=== PATIENT | female | born 1945 | race Caucasian/White ===

== ENCOUNTER 2017-10-30 23:33 | Emergency (ER) | payer OTHER ==
[~2017-10-30] VITALS: Ht 152.4 cm; Wt 71.0 kg
[~2017-10-30 23:33] MED LIST: EYED
[2017-10-30 23:39] VITALS: TEMP 36.8; Ht 152.4 cm; Wt 71.0 kg
[2017-10-31] MEDS ORDERED: OXYCODONE HCL IR 5 MG TAB (IMMEDIATE RELEASE) PO STA (00:06)
--- NOTE | 2017-10-31 00:12 | EMERGENCY ROOM VISIT NOTE ---
History Report prepared by Kamilla: Juwan Narayanan Under the Supervision of: Dr. Arielle Lancaster D.O. First contact with patient: 23:51 Chief Complaint: BITE Stated Complaint: BITE History of Present Illness The patient is a 72 year old female who presents to the Emergency Room with complaints of lower back pain that began 2 weeks ago. She has a past medical history of kidney disease, fatty liver, and borderline diabetes. 2 weeks ago, the patient started to have pain to her right lower back but was not having any urinary symptoms so she did not think that she needed to go to the ER. A couple of days ago, her pain worsened significantly especially when she sits down, so her inspected the area. He noticed an area to her right lower back that he believed to be a bite of some sort. The patient took a bath and put some ointment on the area before she went to bed. The next morning a significant amount of puss was expressed so she took a bath and placed ointment on it again. However, it stopped draining and seemed to be worsening. She denies any fevers, abdominal pain, trouble with her bowels, or abnormal urinary symptoms. She notes that she has been keeping track of her sugars which have been normal. Source of History: patient Onset: 2 weeks ago Position: back (lower right) Symptom Intensity: moderate Quality: sharp Timing: constant Modifying Factors (Worsening): rest (Sitting) Associated Symptoms: No fevers, No abdominal pain, No melena, No hematochezia, No diarrhea, No urinary symptoms Review of Systems See HPI for pertinent positives & negatives. A total of 10 systems reviewed and were otherwise negative. Past Medical & Surgical Medical Problems: (1) Cataract (2) GLAUCOMA NOS (3) Rosacea Family History Omitted secondary to the patient's age. Social History Smoking Status: Never Smoker Smokeless Tobacco Use: No Drug Use: none Marital Status: Housing Status: lives with family Occupation Status: retired Current/Historical Medications Scheduled Aspirin (Aspirin Ec), 81 MG PO DAILY Bimatoprost (Lumigan), 1 DROP OPB HS Cephalexin (Keflex), 1 CAP PO TID Cholecalciferol (Vitamin D3), 1,000 INTER.UNIT PO DAILY Losartan Potassium (Cozaar), 100 MG PO DAILY Metformin Hcl (Glucophage), 1 TAB PO BIDM Sulfamethoxazole-Trimethoprim (Bactrim Ds 800MG/160MG), 1 TAB PO BID Allergies Coded Allergies: Quinolones (Verified Allergy, 12/06/12) Sulfa Drugs (Verified Allergy, 12/06/12) Tetracycline (Verified Allergy, 12/06/12) Tetracyclines (Verified Allergy, 12/06/12) Uncoded Allergies: IVP DYE (Allergy, Unknown, 12/19/02) N (Allergy, Unknown, 12/19/02) NKA (Allergy, Unknown, 12/19/02) TETRACYCLINE/SULFA/EES/QUININES/ADHESIVE TAPE/FLOXIN (Allergy, Unknown, 16/01) SULFAMETHOXAZOLE (Generic Allergy) (Allergy, Y, 12/19/02) Physical Exam Vital Signs Date Time Temp Pulse Resp B/P (MAP) Pulse Ox O2 Delivery O2 Flow Rate FiO2 10/31/17 01:45 76 18 134/82 98 10/30/17 23:39 36.8 87 18 155/81 98 Room Air Physical Exam Heart: Regular rate and rhythm. There is a normal S1 and S2 with no murmurs, clicks, or gallops appreciated. Lungs: Clear to auscultation bilaterally with no wheezes, rales, or rhonchi. Abdomen: Soft, completely nontender, nondistended, with good bowel sounds. There are no palpable pulsatile masses or hepatosplenomegaly. There is no guarding, rigidity, or rebound noted. Extremities: No evidence of cyanosis, clubbing, or edema. There are easily palpable peripheral pulses. Skin: warm and dry with good turgor and no rashes. There is a blanchable skin abscess to the right lower back. There is only minimal fluctuance. The area is indurated without any evidence for cellulitis. Medical Decision & Procedures Medications Administered Medications (Trade) Dose Ordered Sig/Brianne Route Start Time Stop Time Status Last Admin Dose Admin Oxycodone HCl (Roxicodone Immediate Rel Tab) 5 mg NOW STAT PO 10/31/17 00:06 10/31/17 00:08 DC 10/31/17 00:15 5 MG Trimethoprim/ Sulfamethoxazole (Septra Ds 800/ 160MG Tab) 1 tab NOW STAT PO 10/31/17 00:46 10/31/17 00:47 DC 10/31/17 00:55 1 TAB Cephalexin Monohydrate (Keflex Cap) 500 mg NOW ONCE PO 10/31/17 01:00 10/31/17 01:01 DC 10/31/17 00:55 500 MG Oxycodone HCl (Roxicodone Immediate Rel 5MG Home Pack) 1 homepack UD ONCE PO 10/31/17 01:00 10/31/17 01:01 DC 10/31/17 00:56 1 HOMEPACK Procedure Oxycodone 5 mg PO Lidocaine HCl 20 ml INFIL Trimethoprim/Sulfamethoxazole 1 tab PO Oxycodone HCl 1 homepack PO Keflex Cap 500 mg PO Incision & Drainage Indication: Abscess. Location: Right lower back Verbal consent was obtained after the risks and benefits were explained, including but not limited to bleeding, scarring, infection, pain, and bone/joint /nerve damage. At this time, the risks of the procedure are less than the risks of NOT performing the procedure. A time out was taken and the correct patient and site identified. The skin was prepped with betadine and a sterile field set. The wound was anesthetized with 4 ml of 1% lidocaine without epinephrine. The abscess cavity was entered with a number 11 blade and small amount of purulent drainage but mostly solid pus expressed. Foul odor. Debridement was not performed. Packing was placed and a sterile dressing applied. Detailed wound care instructions and signs and symptoms of worsening infection reviewed with the patient. No complications and the patient tolerated the procedure well. ED Course 2351: Past medical records reviewed. The patient was evaluated in room B10. A complete history and physical exam was performed. 0006: Ordered Oxycodone 5 mg PO 0015: Ordered Lidocaine HCl 20 ml INFIL 0022: I performed an I&D procedure at this time. Please see the procedure note for more information. 0040: The patient describes multiple side effects from antibiotics, but no true allergy. 0046: Ordered Trimethoprim/Sulfamethoxazole 1 tab PO 0100: Ordered Oxycodone HCl 1 homepack PO, Keflex Cap 500 mg PO 0126: The patient received her antibiotics without any reaction. 0143: Upon reevaluation, the patient was resting. I discussed findings and results with her. She verbalized agreement of the treatment plan. She was discharged home. Medical Decision The patient is a 72 year old female who presents to the ED with right lower back pain. Differential diagnosis includes insect bite, cellulitis, and skin abscess. The patient had an obvious area of fluctuance and skin abscess in the right lower back. This area was anesthetized and incised and drained. Packing was placed. The was instructed to remove the packing in 24+ hours. Patient then can keep the wound clean with soap and water and apply antibiotic ointment. The patient was also started on antibiotics. I was unable to obtain a wound culture has the wound initially produced some liquid but then seemed to only produce solids. I explained to the patient that she may require surgical evaluation of this abscess if it does not clear after the I&D and antibiotics. Medication Reconcilliation Current Medication List: was personally reviewed by me Blood Pressure Screening Patient's blood pressure: Elevated blood pressure Blood pressure disposition: Elevated BP felt to be situational Impression Primary Impression: Skin abscess Scribe Attestation The scribe's documentation has been prepared under my direction and personally reviewed by me in its entirety. I confirm that the note above accurately reflects all work, treatment, procedures, and medical decision making performed by me. Departure Information Dispostion Home / Self-Care Prescriptions Cephalexin (KEFLEX) 500 Mg Cap 1 CAP PO TID for 10 Days, #30 CAP Prov: Arielle Lancaster D.OAnna 10/31/17 Sulfamethoxazole-Trimethoprim (Bactrim Ds 800MG/160MG) 1 Tab Tab 1 TAB PO BID, #20 TAB Prov: Arielle Lancaster D.O. 10/31/17 Referrals Van Resendez M.D. (PCP) Forms HOME CARE DOCUMENTATION FORM, IMPORTANT VISIT INFORMATION Patient Instructions ED Abscess Padmaja, My [facility] Additional Instructions Rest. Take bactrim - every 12 hours Take keflex every 6 hours Remove the packing on Monday morning Follow up with PCP if no improvement by Oxy IR - 1 tab. every 6 hours as needed for pain. Return to the ER if you develop a fever, high sugars, or vomiting Problem Qualifiers Primary Impression: Skin abscess Site of cutaneous abscess: trunk Site of cutaneous abscess of trunk: back Qualified Codes: L02.212 - Cutaneous abscess of back [any part, except buttock]
[2017-10-31] MEDS ORDERED: XYLOCAINE 1%/SOD BICARB 20 ML VIAL INFIL ONE (00:15)
[2017-10-31] MEDS ORDERED: BIMA0.01 OPB (00:28)
[2017-10-31] MEDS ORDERED: CHOL1000 PO (00:28)
[2017-10-31] MEDS ORDERED: GLC/500 PO (00:28)
[2017-10-31] MEDS ORDERED: LOSA100T65 PO (00:28)
[2017-10-31] MEDS ORDERED: ASPI81TA28 PO (00:28)
[2017-10-31] MEDS ORDERED: SULFAMETHOXAZOLE/TRIMETHOPRIM DS 800/160MG TAB PO STA (00:46)
[2017-10-31] MEDS ORDERED: OXYCODONE IR HOME PACK PO ONE (01:00)
[2017-10-31] MEDS ORDERED: CEPHALEXIN MONOHYDRATE 250 MG CAP PO ONE (01:00)
[2017-10-31] MEDS ORDERED: SULF800T23 PO (01:36)
[2017-10-31] MEDS ORDERED: CEPH-571 PO (01:36)
[2017-10-31 01:45] VITALS: BP 134/82; PULSE 76; O2SAT 98
== END 2017-10-31 01:45 | disposition home or self-care (01) ==
LOC: C.EDB 23:34
DX: L02.212 Cutaneous abscess of back [any part, except buttock and flank] (principal); Z79.82 Long term (current) use of aspirin; Z79.84 Long term (current) use of oral hypoglycemic drugs; Z79.899 Other long term (current) drug therapy; Z88.2 Allergy status to sulfonamides; Z88.8 Allergy status to other drugs, medicaments and biological substances

== ENCOUNTER 2017-11-06 11:41 | Emergency (ER) | payer OTHER ==
[~2017-11-06] VITALS: Ht 160 cm; Wt 70.2 kg
[~2017-11-06 11:41] MED LIST changes: +ASPI81TA28 PO; +BIMA0.01 OPB; +CEPH-571 PO; +CHOL1000 PO; -EYED; +GLC/500 PO; +LOSA100T65 PO; +SULF800T23 PO
[2017-11-06 11:48] VITALS: TEMP 36.7; Ht 160 cm; Wt 70.2 kg
--- NOTE | 2017-11-06 12:25 | EMERGENCY ROOM VISIT NOTE ---
ED Visit Note First contact with patient: 11:55 Patient was seen by our PA/[employer]OR. I was involved in the patient's care and did evaluate the patient myself. I was involved in the care throughout the ER stay. The patient appears to be having an allergic reaction, likely from the Bactrim. There is no airway compromise. She clearly has hives. The patient will stop her current antibiotics and will be switched to something completely different, likely clindamycin. Antihistamines for the hive reaction. If worsening, she can return.
[2017-11-06] MEDS ORDERED: CLIN300C2 PO ×2 (12:43→13:20)
--- NOTE | 2017-11-06 12:46 | EMERGENCY ROOM VISIT NOTE ---
History First contact with patient: 11:55 Chief Complaint: ALLERGIC REACTION Stated Complaint: HIVES Nursing Triage Summary: pt reports being tx for an abcess 10/27 on buttocks pt treated with abx over melita with keflex pt started to get red hives on body 2 days ago last took keflex at 0230 1 day ago today took allergy pill and has welts on back with itchiness History of Present Illness The patient is a 72 year old female who presents to the Emergency Room with complaints of an allergic reaction. The patient reports that she has had a pain in her right lower back for the past 2-3 weeks. She states that she had progressively worsening pain and was eventually seen here one week ago. She was told she had an abscess, and was put on Bactrim and Keflex. She states that she has had an itchy rash all over her body for the past few days. She believes this is due to the sulfa antibiotic, as she did believe that she had an allergy to this. He denies any fevers. She took one of her 's allergy medications which helped slightly. She rates her overall discomfort a 9 /10. Review of Systems A complete 10 point review of systems was reviewed with the patient with pertinent positives and negatives as per history of present illness. All else were negative. Past Medical/Surgical History Medical Problems: (1) Cataract (2) GLAUCOMA NOS (3) Rosacea Social History Smoking Status: Never Smoker Drug Use: none Marital Status: Housing Status: lives with family Occupation Status: retired Current/Historical Medications Scheduled Aspirin (Aspirin Ec), 81 MG PO DAILY Bimatoprost (Lumigan), 1 DROP OPB HS Cephalexin (Keflex), 1 CAP PO TID Cholecalciferol (Vitamin D3), 1,000 INTER.UNIT PO DAILY Clindamycin Hcl (Cleocin), 300 MG PO QID Clindamycin Hcl (Cleocin), 300 MG PO QID Losartan Potassium (Cozaar), 100 MG PO DAILY Metformin Hcl (Glucophage), 1 TAB PO BIDM Sulfamethoxazole-Trimethoprim (Bactrim Ds 800MG/160MG), 1 TAB PO BID Physical Exam Vital Signs Date Time Temp Pulse Resp B/P (MAP) Pulse Ox O2 Delivery O2 Flow Rate FiO2 11/06/17 13:00 71 17 133/74 98 11/06/17 11:48 36.7 92 18 131/71 98 Room Air Physical Exam VITALS: Vitals are noted on the nurse's note and reviewed by myself. Vital signs stable. GENERAL: This is a 72-year-old female, in no acute distress, nondiaphoretic, well-developed well-nourished. SKIN: There is an area of induration with a small central area of pus to the right lower back. There is no fluctuance. There is a large surrounding area of erythema with satellite lesions. There are multiple erythematous raised urticarial lesions to bilateral legs, arms and trunk. HEART: Regular rate and rhythm without murmurs gallops or rubs. LUNGS: Clear to auscultation bilaterally without wheezes, rales or rhonchi. NEURO: Patient was alert and oriented to person place and time. Medical Decision & Procedures Medical Decision Differential diagnosis includes allergic reaction, Carias-Mehdi syndrome, cellulitis, among others. The patient was evaluated as above. Previous records were reviewed. The patient was seen here about one week ago and placed on Bactrim and Keflex for an abscess which had been incised and drained. There is no significant pus expressed for a culture. The patient does appear to be having an allergic reaction, likely to the Bactrim. She will be placed on clindamycin and will stop the other 2 antibiotics. She has a follow-up appointment with her primary care provider this week and was encouraged to keep this appointment. She was instructed to take Benadryl and other [id number] antihistamines for symptomatic relief. She verbalized understanding of my assessment and treatment plan and was discharged home in good condition. The patient was independently evaluated by Dr. Conway, ED attending physician, who agreed with my assessment and treatment plan. Medication Reconcilliation Current Medication List: was personally reviewed by me Blood Pressure Screening Patient's blood pressure: Normal blood pressure Impression Primary Impression: Allergic reaction Departure Information Dispostion Home / Self-Care Condition GOOD Prescriptions Clindamycin Hcl (CLEOCIN) 300 Mg Cap 300 MG PO QID for 7 Days, #28 CAP Prov: Yajaira Fraser PA-C 11/06/17 Clindamycin Hcl (CLEOCIN) 300 Mg Cap 300 MG PO QID for 7 Days, #28 CAP Prov: Yajaira Fraser PA-C 11/06/17 Referrals Van Resendez M.D. (PCP) Patient Instructions My [facility] Additional Instructions You were prescribed Clindamycin to be taken four times daily as prescribed. This is an antibiotic. All antibiotics have the potential to cause diarrhea. Stop this medication and contact a medical provider if you were to develop any significant adverse side effects including: wheezing, shortness of breath, passing out, vomiting, or a diffuse rash. Always take antibiotics as directed and COMPLETE the ENTIRE course regardless of the improvement of your symptoms. You should take Benadryl (diphenhydramine) 25-50 mg orally every 4-6 hours as needed for itching. This medication is [id number] and you will NOT need a prescription to purchase this at your local pharmacy. As with every Emergency Department visit, you should follow-up with your primary care provider in 2-3 days for reevaluation. Return to the Emergency Department if your current symptoms worsen despite treatment course outlined above, or if you develop any of the following symptoms : wheezing, tongue or face swelling, tightness in your throat, shortness of breath, or fainting. Problem Qualifiers Primary Impression: Allergic reaction Encounter type: initial encounter Qualified Codes: T78.40XA - Allergy, unspecified, initial encounter
[2017-11-06 13:00] VITALS: BP 133/74; PULSE 71; O2SAT 98
== END 2017-11-06 13:07 | disposition home or self-care (01) ==
LOC: C.EDB 11:42 → C.EDD 13:07
DX: T78.40XA Allergy, unspecified, initial encounter (principal); X58.XXXA Exposure to other specified factors, initial encounter; H26.9 Unspecified cataract; H40.9 Unspecified glaucoma; Z79.82 Long term (current) use of aspirin

== ENCOUNTER 2024-12-09 23:08 | Observation (INO) ==
[2024-12-09] MEDS: MoRPHine SULFATE 4 MG/ML 1 ML CARP\\VIAL IV STA (23:32)
[2024-12-09] MEDS: FAMOTIDINE 20MG IV PUSH 20 MG/5 ML SYR IV STA (23:32)
[2024-12-09] MEDS: ONDANSETRON INJ 2 MG/ML 2 ML VIAL IV STA (23:32)
[2024-12-09 23:34] LABS: Basophils % (auto) 0.7 %; Eosinophils % (auto) 2.1 %; Hematocrit (blood only) 28.5 % (37.0-47.0); Hemoglobin 9.7 g/dl (12.0-16.0); Immature Granulocytes # (auto) 0.09 K/uL (0.01-0.20); Immature Granulocytes % (auto) 0.6 %; Lymphocytes # (auto) 3.51 K/uL (1.20-3.40); Lymphocytes % (auto) 24.2 %; Mean Corpuscular Volume 82.4 fL (80.0-100.0); Mean Platelet Volume 9.8 fL (9.4-12.4); Monocytes # (auto) 1.18 K/uL (0.11-0.59); Monocytes % (auto) 8.1 %; Neutrophils # (auto) 9.31 K/uL (1.40-6.50); Neutrophils % (auto) 64.3 %; Platelet Count 351 K/uL (130-400); RDW Coefficient of Variation 12.3 % (11.5-14.5); Red Blood Count 3.46 M/uL (4.20-5.40); White Blood Count 14.49 K/ul (4.8-10.8)
--- NOTE | 2024-12-09 23:34 | Emergency Department Note ---
History of Present Illness General Chief complaint: Cardiac Assessment Stated complaint: SOB, CHEST PAIN, VOMITING Time Seen by Provider: 12/09/24 23:12 History of Present Illness Maximum Pain Intensity: 10 This 79-year-old female with a past medical history of hypertension, diabetes who was just treated for diverticulitis at [place] presents ER complaining of epigastric right upper quadrant chest pain tonight after eating [place]. She still has her gallbladder. She has had a hysterectomy. No other abdominal surgeries. Patient also complains of facial tingling. patient denies fever, chills, diarrhea. She does feel quite nauseous. Home Medications Medication Instructions Recorded Confirmed Type ASPIRIN (ASPIRIN EC) 81 mg PO DAILY ##0 10/31/17 12/10/24 History BIMATOPROST (LUMIGAN) 1 drp OPB HS #0 mL 10/31/17 12/10/24 History CHOLECALCIFEROL (VITAMIN D3) 1,000 inter.unit PO DAILY #0 tabs 10/31/17 12/10/24 History LOSARTAN POTASSIUM (COZAAR) 100 mg PO DAILY #0 tabs 10/31/17 12/10/24 History METFORMIN HCL (GLUCOPHAGE) 1 tab PO BIDM #0 tabs 10/31/17 12/10/24 History Allergies Allergy/AdvReac Type Severity Reaction Status Date / Time Quinolones Allergy Unknown Verified 11/06/17 12:03 Sulfa (Sulfonamide Allergy Unknown Verified 11/06/17 12:03 Antibiotics) tetracycline Allergy Unknown Verified 11/06/17 12:03 Tetracyclines Allergy Unknown Verified 11/06/17 12:03 IVP DYE Allergy Unknown Uncoded 12/19/02 11:12 SULFAMETHOXAZOLE (Generic Allergy Unknown Y Uncoded 11/06/17 12:03 Allergy) TETRACYCLINE/SULFA/EES/QUININES/ADHESIVE Allergy Unknown Uncoded 12/19/02 11:12 TAPE/FLOXIN Past Med/Surg History Problem List (Updated 12/10/24 @ 01:48 by Rosa Maria Harding PA-C) Hypomagnesemia (Acute) Hypokalemia (Acute) Chest pain (Acute) Biliary colic (Acute) Allergic reaction (Acute) Social History Smoking Status: Never smoker Preferred Language: Khmer Feels Safe at Home: Yes Review of Systems A total of 10 systems reviewed and were otherwise negative Physical Exam Vital Signs Vital Signs - 24 hr 12/09/24 23:09 12/09/24 23:20 12/09/24 23:23 Temperature 36.6 C Temperature Source Oral Pulse Rate 108 H 72 Pulse Rate [Left Finger] Pulse Rhythm [Left Finger] Pulse Strength [Left Finger] Respiratory Rate 24 Respiratory Effort / Characteristics Respiratory Depth Respiratory Pattern Blood Pressure 131/68 Blood Pressure [Right Arm] Blood Pressure Mean 89 Blood Pressure Mean [Right Arm] Blood Pressure Position [Right Arm] Pulse Oximetry 97 98 Oxygen Delivery Method Room Air Room Air Oxygen Flow Rate Sepsis Recent Fever Within 48 Hours No Sepsis New/Unexplained Change in Mental Status No Sepsis Action Taken by Nursing No Action Required Oxygen Flow Rate - Titration Pulse Oximetry Post Tiitration 12/10/24 00:50 12/10/24 01:51 12/10/24 02:00 Temperature Temperature Source Pulse Rate Pulse Rate [Left Finger] 66 68 Pulse Rhythm [Left Finger] Regular Pulse Strength [Left Finger] Normal Respiratory Rate 21 16 Respiratory Effort / Characteristics Non-Labored Spontaneous Non-Labored Spontaneous Respiratory Depth Normal Normal Respiratory Pattern Regular Regular Blood Pressure Blood Pressure [Right Arm] 151/73 H 162/76 H Blood Pressure Mean Blood Pressure Mean [Right Arm] 99 104 Blood Pressure Position [Right Arm] Lying Pulse Oximetry 97 86 L 100 Oxygen Delivery Method Room Air Nasal Cannula Nasal Cannula Oxygen Flow Rate 0 2 Sepsis Recent Fever Within 48 Hours Sepsis New/Unexplained Change in Mental Status Sepsis Action Taken by Nursing Oxygen Flow Rate - Titration 2 Pulse Oximetry Post Tiitration 100 VITALS: Vitals are noted on the nurse's note and reviewed by myself. Vital signs stable. GENERAL: White female crying in pain, in no acute distress, nondiaphoretic, well-developed well-nourished. SKIN: The skin was without rashes, erythema, edema, or bruising. There is no tenting of the skin. Capillary reflex less than 2 seconds. HEAD: Normocephalic atraumatic. EARS: External auditory canals clear EYES: Pupils equal round and reactive to light and accommodation. Conjunctivae without injection, sclerae without icterus. Extraocular movements intact. NOSE: Patent, no discharge. MOUTH: Mucous membranes moist. Pharynx without erythema or exudate. Uvula midline. Airway patent. Tongue does not deviate. NECK: Supple without nuchal rigidity. No lymphadenopathy. No thyromegaly. Cervical spine is nontender. No JVD. HEART: Regular rate and rhythm LUNGS: Clear to auscultation bilaterally without wheezes, rales or rhonchi. No retractions or accessory muscle use. ABDOMEN: Positive bowel sounds x 4. Normal tympanic percussion. Soft, tender epigastric right upper quadrant, without masses or organomegaly. No guarding or rebound tenderness. No CVA tenderness MUSCULOSKELETAL: No muscle atrophy, erythema, or edema noted. NEURO: Patient was alert and oriented to person place and time. Normal sensation to light and sharp touch. No focal neurological deficits. Course Administered Medications Magnesium Sulfate/Dextrose (Magnesium Sulfate / D5w) 1 gm in 100 mls @ 100 mls/hr IV Q1H DANIEL Stop: 12/10/24 03:31 Last Admin: 12/10/24 01:40 Dose: 100 mls/hr Documented By: BROCK Discontinued Medications Famotidine (Pepcid 20mg Iv Push) 20 mg in 5 mls @ 2.5 mls/min IV NOW STA Stop: 12/09/24 23:22 Last Admin: 12/09/24 23:32 Dose: 2.5 mls/min Documented By: BROCK Potassium Chloride (K Moreno / Wtr) 10 meq in 100 mls @ 100 mls/hr IV Q1H DANIEL Stop: 12/10/24 01:44 Last Admin: 12/10/24 01:40 Dose: 100 mls/hr Documented By: BROCK Morphine Sulfate (Morphine Sulfate 4 Mg/Ml 1 Ml Carp\Vial) 4 mg IV NOW STA Stop: 12/09/24 23:22 Last Admin: 12/09/24 23:32 Dose: 4 mg Documented By: BROCK Morphine Sulfate (Morphine Sulfate 4 Mg/Ml 1 Ml Carp\Vial) 4 mg IV NOW STA Stop: 12/10/24 01:06 Last Admin: 12/10/24 01:40 Dose: 4 mg Documented By: BROCK Ondansetron HCl (Ondansetron Inj 2 Mg/Ml 2 Ml Vial) 4 mg IV NOW STA Stop: 12/09/24 23:22 Last Admin: 12/09/24 23:32 Dose: 4 mg Documented By: BROCK Ondansetron HCl (Ondansetron 4 Mg Od Tab) 4 mg PO NOW STA Stop: 12/10/24 00:19 Last Admin: 12/10/24 00:23 Dose: 4 mg Documented By: KRISTIN Potassium Chloride (Potassium Chloride Crtab 20 Meq Tabcr) 40 meq PO NOW STA Stop: 12/09/24 23:57 Last Admin: 12/10/24 01:04 Dose: 40 meq Documented By: KRISTIN Medical Decision Making Medical Records Attestation: I reviewed the patient's medical records. Home Medications Current Medication List: was personally reviewed by me Laboratory Data Attestation: I reviewed the patient's lab results. 12/09/24 23:17 12/09/24 23:17 Lab Results 12/09/24 12/09/24 Range/Units 23:17 23:21 WBC 14.49 H (4.8-10.8) K/ul RBC 3.46 L (4.20-5.40) M/uL Hgb 9.7 L (12.0-16.0) g/dl POC Hgb 10.2 L (12.0-16.0) g/dl Hct 28.5 L (37.0-47.0) % POC Hct 30 L (37-47) % MCV 82.4 (80.0-100.0) fL MCH 28.0 (25.0-34.0) pg MCHC 34.0 (32.0-36.0) g/dL RDW Std Deviation 37.0 (36.4-46.3) fL RDW Coeff of Sadia 12.3 (11.5-14.5) % Plt Count 351 (130-400) K/uL MPV 9.8 (9.4-12.4) fL Immature Gran % (Auto) 0.6 % Neut % (Auto) 64.3 % Lymph % (Auto) 24.2 % [place] % (Auto) 8.1 % Eos % (Auto) 2.1 % Baso % (Auto) 0.7 % Neut # (Auto) 9.31 H (1.40-6.50) K/uL Lymph # (Auto) 3.51 H (1.20-3.40) K/uL [place] # (Auto) 1.18 H (0.11-0.59) K/uL Eos # (Auto) 0.30 (0.00-0.50) K/uL Baso # (Auto) 0.10 (0.00-0.20) K/uL Immature Gran # (Auto) 0.09 (0.01-0.20) K/uL POC Sodium 130 L (135-144) mmol/L Sodium 131 L (136-145) mmol/L POC Potassium 2.7 L (3.3-5.0) mmol/L Potassium 2.8 L (3.5-5.1) mmol/L POC Chloride 91 L (101-112) mmol/L Chloride 91 L (98-107) mmol/L Carbon Dioxide 23 (21-32) mmol/L POC Total CO2 25 (24-31) mmol/L Anion Gap 17 H (3-11) POC Anion Gap 17.0 (16-25) mmol/L POC BUN 29 H (7-18) mg/dl BUN 35 H (6-23) mg/dl Creatinine 1.74 H (0.6-1.2) mg/dl POC Creatinine 1.9 H (0.6-1.3) mg/dl Est Cr Clr Drug Dosing Not Reportable eGFR 29.85 BUN/Creatinine Ratio 20.1 H (10-20) Glucose 204 H (70-99(Fasting)) mg/dl POC Glucose (other) 205 H (70-99) mg/dl Osmolality 282 (280-300) mOsm/kg Calcium 9.8 (8.6-10.3) mg/dl POC Ioniz Calcium Admon 1.03 L (1.12-1.32) mmol/l Magnesium 1.6 L (1.7-2.4) mg/dl Total Bilirubin 0.4 (0.2-1.0) mg/dl AST 34 (13-39) U/L ALT 31 (7-52) U/L Alkaline Phosphatase 100 (34-104) U/L Troponin I High Sens 8.9 (0-14) pg/ml Total Protein 7.2 (6.0-8.3) gm/dl Albumin 3.8 (3.4-5.0) gm/dl Globulin 3.4 (2.5-4.0) gm/dl Albumin/Globulin Ratio 1.1 (0.9-2) Lipase 67 (11-82) U/L Imaging Data Attestation: I personally reviewed and interpreted this imaging study as follows: Radiologist's Impression: Chest X-Ray 12/09/24 23:21 EXAM: XR chest 1V portable CLINICAL HISTORY: Chest pain, nonspecific TECHNIQUE: Radiograph of chest was acquired. COMPARISON: none FINDINGS: The lungs are clear and well-expanded with no pulmonary infiltrate or pleural effusion. The cardiomediastinal silhouette is within normal limits. No acute osseous abnormality. IMPRESSION: 1. No acute cardiopulmonary disease. Electronically signed by Van Olsen 12-10-2024 01:07 AM Gallbladder Ultrasound 12/09/24 23:23 EXAM: US gallbladder CLINICAL HISTORY: ruq pain TECHNIQUE: Ultrasound examination of the RUQ was performed using a [high-frequency transducer]. Scanning was performed with the patient in supine position. COMPARISON: None. FINDINGS: Liver: Liver size: Liver appears normal in size with homogeneous echotexture. Measuring 16.8 cm. No evidence of focal lesions, cysts, or masses. Hepatic vasculature appears normal. Gallbladder: Gallbladder size: The gallbladder is visualized and appears normal in size and shape, with a small amount of sludge noted. No gallstones, wall thickening measuring 1.5 mm, or pericholecystic fluid noted. No evidence of gallbladder wall edema or signs of acute cholecystitis. Biliary Tree: Common bile duct diameter: [4.7 mm].The common bile duct is within normal limits in caliber and not dilated. No evidence of choledocholithiasis or biliary obstruction. Right Kidney: Right kidney size: [measurements in length (9.2 cm), height (4.1 cm) and width (4.3 cm)]. The right kidney appears normal in size with preserved corticomedullary differentiation. No evidence of hydronephrosis, renal cysts, or masses. Right Adrenal Gland: A rounded mixed texture lesion of predominant echogenic appearance was noted at the right suprarenal region, measuring 6.1x 6.5x 5..4, separable from the kidney, and likely adrenal myelolipoma. IMPRESSION: - Right suprarenal heterogenous mass of predominant echogenic texture, suggesting fatty component mostly myelolipoma; further assessment with CT/ MRI advised. - Small gallbladder sludge. Electronically signed by Alec Gordillo 12-10-2024 02:15 AM Abdomen/Pelvis CT 12/10/24 00:51 EXAM: CT abd pelvis wo con CLINICAL HISTORY: severe pain TECHNIQUE: Contiguous axial images were obtained from the level of the diaphragm to the pubic symphysis without intravenous or oral contrast. Coronal and sagittal reconstructions were likewise performed and indicated to increase the sensitivity for detecting clinically relevant pathology. CT scan was performed according to ALARA (as low as reasonably achievable). COMPARISON: none FINDINGS: The visualized lung bases are clear. Evaluation of the abdominal and pelvic visceral organs is limited without intravenous contrast. The unenhanced liver, spleen, pancreas are grossly unremarkable. A predominantly fat containing well defined mass seen in right adrenal gland measuring about 5.7x5.3x5.4cm. Small nodule also seen in left adrenal gland measuring 18 X 14 mm in size. The gallbladder is present. A radiodense calculus of size 3mm seen at neck. No pericholecystic inflammation. The kidneys are normal in size and attenuation without obvious calcification. There is no hydronephrosis or perinephric stranding. The ureters are normal in caliber. No adenopathy or fluid collections are seen. Multiple diverticuli of average size 4-5mm seen in cecum, ascending/descending colon and sigmoid colon. No evidence of focal or diffuse bowel wall thickening or evidence of bowel obstruction is seen. The appendix is not visualized. Diffuse atherosclerotic wall calcification of abdominal aorta. Degenerative changes in visualized spine. The urinary bladder is normal in contour. Post cholecystectomy status. No aggressive appearing osseous lesions are identified. Small sliding hiatus hernia. IMPRESSION: 1. Cholelithiasis with no evidence of cholecystitis. 2. Right adrenal myelolipoma. 3. Uncomplicated colonic diverticulosis. 4. Small sliding hiatus hernia. 5. Small nodule also seen in left adrenal gland measuring 18 X 14 mm in size. Advised clinical correlation and further evaluation with CT adrenal protocol. Electronically signed by Van Olsen 12-10-2024 02:36 AM MDM Narrative Prior records/ancillary studies reviewed. Triage Nursing notes reviewed. Additional history obtained from family. The patient's history was concerning for chest pain. Differential diagnosis: Etiologies such as cardiac ischemia, aortic dissection, pulmonary embolism, pneumonia, pneumothorax, musculoskeletal, infections, pericarditis, myocarditis, esophageal rupture, gastrointestinal, as well as others were entertained. Physical examination: As above. ER treatment provided: An order was placed for continuous cardiac monitoring. The monitor shows a rate of 60-100 with a sinus rhythm per my interpretation. Emergent FAST POCUS performed by me. Subxiphoid view and parasternal long shows no pericardial effusion or tamponade. Abdominal views demonstrate no free fluid in the hepatorenal space, splenorenal space, or around the bladder. No free fluid. Normal FAST per my interpretation. Morphine and Zofran were ordered and patient states she is not allergic Mg and K were replaced On reassessment the patient felt better. Diagnostic interpretation by me: The electrocardiogram was ordered for chest pain EKG: Normal sinus, no acute ST-T wave changes, left bundle, rate of 67. EKG compared to prior EKG with no acute changes noted. Impression left bundle branch block unchanged independently interpreted by myself. No Sgarbossa I think arrhythmia is unlikely. EKG shows normal sinus rhythm with no interval abnormalities such as QT prolongation or WPW. There are no findings to suggest Brugada syndrome. Cardiac monitoring in the emergency department reveals no tachycardic or bradycardic dysrhythmia. Hypertrophic cardiomyopathy was considered but there are no clear historical elements pointing toward this. EKG is not suggestive. The QRS voltage is not extremely large and there are no suggestive Q waves. The labs Independently Interpreted by myself revealed negative troponin, hypokalemia this is replaced, low magnesium this is replaced Imaging studies: Imagings were reviewed and read by radiology HEART SCORE: Hx: high/mod/low suspicion: 1 ECG: ST depression/nonspecific changes/normal: 0 Age: Greater than 65/45-64/less than 45: 2 Risk factors: (Hypertension, hyperlipidemia, diabetes, coronary disease, tobacco use, cocaine use): 2 Troponin: Greater than 2 times normal limits/1-2 times normal limits/normal: 0 Total: 5 Consultation: A consultation was placed with the hospitalist. The case was discussed and diagnostics were reviewed. The patient was evaluated in the ER for further treatment. Exam and history seen consistent with biliary colic and electrolyte abnormalities. Potassium and magnesium were replaced as above. Patient's pain was managed with morphine. Medicine was consulted case is discussed. She will be evaluated for possible admission. By the evaluation outlined above emergent etiologies such as aortic dissection, pulmonary embolism, pneumonia, pneumothorax, pericarditis, myocarditis, gastrointestinal, as well as others were deemed relatively unlikely. The pt informed about the findings as listed above. All questions were answered and pleased with the treatment. The chart was completed utilizing [employer] voice recognition software. Grammatical errors, random word insertions, pronoun errors, and incomplete sentences are an occassional consequence of this system due to software limitations, ambient noise, and hardware issues. Any formal questions or concerns about the content, text, or information contained within the body of this dictation should be directly addressed to the physician fleet administrative assistant for clarification. Impression & Plan Biliary colic, Chest pain, Hypokalemia, Hypomagnesemia Discharge Plan Visit Data Chief Complaint: Cardiac Assessment Stated Complaint: SOB, CHEST PAIN, VOMITING ED Provider: Ruth Luther ED Midlevel Provider: Rosa Maria Harding Discharge Problem: Biliary colic, Chest pain, Hypokalemia, Hypomagnesemia Patient Disposition: Admitted As Inpatient Condition: Fair Forms Stand Alone Forms: [facility] Skin Scan Prescriptions Prescriptions: No Action ASPIRIN (ASPIRIN EC) 81 MG tablet 81 mg PO DAILY Qty: 0 BIMATOPROST (LUMIGAN) 0.01 % SOLTAB 1 drp OPB HS Qty: 0 CHOLECALCIFEROL (VITAMIN D3) 1,000 UNIT tablet 1,000 inter.unit PO DAILY Qty: 0 LOSARTAN POTASSIUM (COZAAR) 100 MG tablet 100 mg PO DAILY Qty: 0 METFORMIN HCL (GLUCOPHAGE) tablet 1 tab PO BIDM Qty: 0 Referrals Referrals: Van Resendez MD [Primary Care Provider] -
[2024-12-09 23:35] LABS: iSTAT Creatinine 1.9 mg/dl (0.6-1.3); iSTAT Hemoglobin 10.2 g/dl (12.0-16.0); iSTAT Ionized Calcium 1.03 mmol/l (1.12-1.32); iSTAT Potassium 2.7 mmol/L (3.3-5.0)
[2024-12-09 23:50] LABS: Alanine Aminotransferase 31 U/L (7-52); Albumin Globulin Ratio 1.1 (0.9-2); Albumin Level 3.8 gm/dl (3.4-5.0); Alkaline Phosphatase 100 U/L (34-104); Anion Gap 17 (3-11); Aspartate Aminotransferase 34 U/L (13-39); BUN Creatinine Ratio 20.1 (10-20); Bilirubin,Total 0.4 mg/dl (0.2-1.0); Blood Urea Nitrogen 35 mg/dl (6-23); Calcium 9.8 mg/dl (8.6-10.3); Carbon Dioxide 23 mmol/L (21-32); Chloride 91 mmol/L (98-107); Globulin 3.4 gm/dl (2.5-4.0); Glucose 204 mg/dl (70-99(Fasting)); Lipase 67 U/L (11-82); Potassium 2.8 mmol/L (3.5-5.1); Sodium 131 mmol/L (136-145); Total Protein 7.2 gm/dl (6.0-8.3)
[2024-12-09 23:56] LABS: Troponin I High Sensitivity 8.9 pg/ml (0-14)
[2024-12-10] MEDS: ONDANSETRON 4 MG OD TAB PO STA (00:23)
[2024-12-10] MEDS: POTASSIUM CHLORIDE CRTAB 20 MEQ TABCR PO STA ×2 (01:04→10:20)
--- NOTE | 2024-12-10 01:08 | XRay Report ---
EXAM: XR chest 1V portable CLINICAL HISTORY: Chest pain, nonspecific TECHNIQUE: Radiograph of chest was acquired. COMPARISON: none FINDINGS: The lungs are clear and well-expanded with no pulmonary infiltrate or pleural effusion. The cardiomediastinal silhouette is within normal limits. No acute osseous abnormality. IMPRESSION: 1. No acute cardiopulmonary disease. Electronically signed by Van Olsen 12-10-2024 01:07 AM
[2024-12-10 01:23] LABS: Magnesium 1.6 mg/dl (1.7-2.4)
[2024-12-10] MEDS: POTASSIUM CHLORIDE / WTR 10 MEQ/100 ML PLCT IV SCH ×2 (01:40→10:19)
[2024-12-10] MEDS: MAGNESIUM SULFATE / D5W 1 GM/100 ML BAG IV SCH (01:40)
[2024-12-10] MEDS: MoRPHine SULFATE 4 MG/ML 1 ML CARP\\VIAL IV STA (01:40)
--- NOTE | 2024-12-10 02:15 | Ultrasound Report ---
EXAM: US gallbladder CLINICAL HISTORY: ruq pain TECHNIQUE: Ultrasound examination of the RUQ was performed using a [high-frequency transducer]. Scanning was performed with the patient in supine position. COMPARISON: None. FINDINGS: Liver: Liver size: Liver appears normal in size with homogeneous echotexture. Measuring 16.8 cm. No evidence of focal lesions, cysts, or masses. Hepatic vasculature appears normal. Gallbladder: Gallbladder size: The gallbladder is visualized and appears normal in size and shape, with a small amount of sludge noted. No gallstones, wall thickening measuring 1.5 mm, or pericholecystic fluid noted. No evidence of gallbladder wall edema or signs of acute cholecystitis. Biliary Tree: Common bile duct diameter: [4.7 mm].The common bile duct is within normal limits in caliber and not dilated. No evidence of choledocholithiasis or biliary obstruction. Right Kidney: Right kidney size: [measurements in length (9.2 cm), height (4.1 cm) and width (4.3 cm)]. The right kidney appears normal in size with preserved corticomedullary differentiation. No evidence of hydronephrosis, renal cysts, or masses. Right Adrenal Gland: A rounded mixed texture lesion of predominant echogenic appearance was noted at the right suprarenal region, measuring 6.1x 6.5x 5..4, separable from the kidney, and likely adrenal myelolipoma. IMPRESSION: - Right suprarenal heterogenous mass of predominant echogenic texture, suggesting fatty component mostly myelolipoma; further assessment with CT/ MRI advised. - Small gallbladder sludge. Electronically signed by Alec Gordillo 12-10-2024 02:15 AM
--- NOTE | 2024-12-10 02:36 | CT Scan Report ---
EXAM: CT abd pelvis wo con CLINICAL HISTORY: severe pain TECHNIQUE: Contiguous axial images were obtained from the level of the diaphragm to the pubic symphysis without intravenous or oral contrast. Coronal and sagittal reconstructions were likewise performed and indicated to increase the sensitivity for detecting clinically relevant pathology. CT scan was performed according to ALARA (as low as reasonably achievable). COMPARISON: none FINDINGS: The visualized lung bases are clear. Evaluation of the abdominal and pelvic visceral organs is limited without intravenous contrast. The unenhanced liver, spleen, pancreas are grossly unremarkable. A predominantly fat containing well defined mass seen in right adrenal gland measuring about 5.7x5.3x5.4cm. Small nodule also seen in left adrenal gland measuring 18 X 14 mm in size. The gallbladder is present. A radiodense calculus of size 3mm seen at neck. No pericholecystic inflammation. The kidneys are normal in size and attenuation without obvious calcification. There is no hydronephrosis or perinephric stranding. The ureters are normal in caliber. No adenopathy or fluid collections are seen. Multiple diverticuli of average size 4-5mm seen in cecum, ascending/descending colon and sigmoid colon. No evidence of focal or diffuse bowel wall thickening or evidence of bowel obstruction is seen. The appendix is not visualized. Diffuse atherosclerotic wall calcification of abdominal aorta. Degenerative changes in visualized spine. The urinary bladder is normal in contour. Post cholecystectomy status. No aggressive appearing osseous lesions are identified. Small sliding hiatus hernia. IMPRESSION: 1. Cholelithiasis with no evidence of cholecystitis. 2. Right adrenal myelolipoma. 3. Uncomplicated colonic diverticulosis. 4. Small sliding hiatus hernia. 5. Small nodule also seen in left adrenal gland measuring 18 X 14 mm in size. Advised clinical correlation and further evaluation with CT adrenal protocol. Electronically signed by Van Olsen 12-10-2024 02:36 AM
[2024-12-10 03:30] LABS: Troponin I High Sensitivity 14.6 pg/ml (0-14)
[2024-12-10 03:43] LABS: Thyroid Stimulating Hormone 2.118 uIu/ml (0.300-4.500)
[2024-12-10 03:58] LABS: Appearance Urine Clear (Clear); Bacteria Urine Automated None Seen (None Seen); Bilirubin Urine Negative (Negative); Blood Urine 2+ (Negative); Cast Urine Automated 0-2 /lpf (0-2); Color Urine Yellow; Epithelial Cell Urine Auto 0-2 /hpf (0-2); Glucose Urine UA Trace (Negative); Ketones Urine Trace (Negative); Leukocyte Esterase Urine 1+ (Negative); Nitrite Urine Negative (Negative); Protein Urine 2+ (Negative); RBC Urine Automated 0-2 /hpf (0-2); Specific Gravity Urine 1.017 (1.000-1.030); Urobilinogen Urine Negative (Negative)
[2024-12-10] MEDS: HYDROmorphone INJ 0.5 MG/0.5 ML SYR IV STA (04:15)
--- NOTE | 2024-12-10 06:27 | History & Physical Report ---
Date of Service December 10, 2024 Assessment & Plan (1) Biliary colic: Plan: 79-year-old female with past med history significant for type 2 diabetes, dyslipidemia, left adrenal adenoma, intraductal papillary mucinous neoplasm, hypertension, diverticulosis colon, Damon, GERD, CKD stage III, osteoporosis, osteoarthritis, history of glaucoma, lives at home with her comes because of right upper quadrant abdominal pain and nausea and vomiting. Since yesterday evening she had several episodes of vomiting and also right quadrant abdominal pain. Sometimes pain is in the middle of the chest. Currently no chest pain or shortness of breath. Denies any fevers. No runny nose or sore throat or cough. Constipated. Micturating okay. Hemodynamics are okay.Last night patient also felt some numbness and tingliness in the face and the left arm but that got resolved now. Patient recently was treated with p.o. Augmentin for diverticulitis and completed the course 2 weeks ago. Biliary colic Gallstones on ct scan. Having right quadrant abdominal pain and nausea and vomiting N.p.o., IV fluids empiric Zosyn GI and surgery consult for further recommendations Questionable chest pain Has some chest pain possibly coming from above Will follow serial cardiac enzymes and echo Numbness On the face and left arm got resolved now Possible from electrolyte abnormalities Monitor Hypokalemia and hypomagnesia Replaced Chlorthalidone could be contributing Follow repeat labs Hypertension On metoprolol Holding losartan and chlorthalidone Will monitor NANCY on CKD stage III Baseline creatinine 1.5 today creatinine 1.7 Avoid nephrotoxic agents Follow repeat labs Prolonged QTc Probably from electrolyte abnormalities Avoid QT prolonging drugs Will follow repeat EKG Hyperlipidemia On statin Diabetes Hold metformin Sliding scale Will monitor GERD Omeprazole DVT prophylaxis SCDs Disposition Med/telemetry Full code History of Present Illness Chief Complaint: Nausea vomiting and abdominal pain Primary Care Provider: Van Resendez MD 79-year-old female with past med history significant for type 2 diabetes, dyslipidemia, left adrenal adenoma, intraductal papillary mucinous neoplasm, hypertension, diverticulosis colon, Damon, GERD, CKD stage III, osteoporosis, osteoarthritis, history of glaucoma, lives at home with her comes because of right upper quadrant abdominal pain and nausea and vomiting. Since yesterday evening she had several episodes of vomiting and also right quadrant abdominal pain. Sometimes pain is in the middle of the chest. Currently no chest pain or shortness of breath. Denies any fevers. No runny nose or sore throat or cough. Constipated. Micturating okay. Hemodynamics are okay.Last night patient also felt some numbness and tingliness in the face and the left arm but that got resolved now. Patient recently was treated with p.o. Augmentin for diverticulitis and completed the course 2 weeks ago. Past medical history. As mentioned above Past surgical history. Colonoscopy. EGD. EGD with biopsy. EGD with endoscopic ultrasound. Removal of anal fistula. Bilateral cataracts. Tonsillectomy adenoidectomy. Total abdominal hysterectomy with removal of tubes. Social history. . No smoking. No alcohol use. No drug use. Family history. Sister has diabetes. Heart disorder. Brother has heart disorder. Daughter has heart disorder. Son has A-fib. Allergies Allergy/AdvReac Type Severity Reaction Status Date / Time Iodinated Contrast Media Allergy Unknown (ivp dye) Verified 12/10/24 04:12 Unknown Quinolones Allergy Unknown Unknown Verified 12/10/24 04:12 Sulfa (Sulfonamide Allergy Unknown Unknown Verified 12/10/24 04:12 Antibiotics) tetracycline Allergy Unknown Unknown Verified 12/10/24 04:12 Tetracyclines Allergy Unknown Unknown Verified 12/10/24 04:12 Home Medications Medication Instructions Recorded Confirmed Type aspirin 81 mg tablet,delayed 81 mg PO DAILY 12/10/24 12/10/24 History release chlorthalidone 25 mg tablet 25 mg PO DAILY 12/10/24 12/10/24 History losartan 25 mg tablet 25 mg PO DAILY 12/10/24 12/10/24 History metformin 500 mg tablet 500 mg PO DAILY 12/10/24 12/10/24 History metoprolol succinate 25 mg 25 mg PO DAILY 12/10/24 12/10/24 History tablet,extended release 24 hr omeprazole 20 mg capsule,delayed 20 mg PO DAILY 12/10/24 12/10/24 History release rosuvastatin 40 mg tablet 40 mg PO DAILY 12/10/24 12/10/24 History Past Med/Surg History Problem List (Updated 12/10/24 @ 01:48 by Rosa Maria Harding PA-C) Hypomagnesemia (Acute) Hypokalemia (Acute) Chest pain (Acute) Biliary colic (Acute) Allergic reaction (Acute) Social History Smoking Status: Never smoker Preferred Language: Serbian Feels Safe at Home: Yes Review of Systems Review of Systems: All systems reviewed & are unremarkable except as noted in HPI & below Physical Exam Physical Exam: General- Not in distress. Head- atraumatic Eyes- PERRL. ENT- oropharynx clear Neck- supple, no JVD. Lungs- clear to auscultation no wheezing or crackles. Heart- regular rhythm; no murmur, no gallop. Abdomen- normal bowel sounds, soft, nontender, no distension Extremities- no pretibial edema, no erythema seen. Neuro- alert, oriented PERRL, no facial palsy; no dysarthria; moves extremities Results & Data Results & Data Vital Signs (Past 12 Hours) Vital Signs Temp Pulse Pulse Resp BP BP Pulse Ox 12/10/24 04:05 68 12/10/24 02:00 68 16 162/76 H 100 12/10/24 01:51 86 L 12/10/24 00:50 66 21 151/73 H 97 12/09/24 23:23 98 12/09/24 23:20 72 12/09/24 23:09 36.6 C 108 H 24 131/68 97 O2 Del Method O2 Flow Rate 12/10/24 04:05 12/10/24 02:00 Nasal Cannula 2 12/10/24 01:51 Nasal Cannula 0 12/10/24 00:50 Room Air 12/09/24 23:23 Room Air 12/09/24 23:20 12/09/24 23:09 Room Air Diagnostic Findings Laboratory Results WBC 14.49 K/ul (4.8-10.8) H 12/09/24 23:17 RBC 3.46 M/uL (4.20-5.40) L 12/09/24 23:17 Hgb 9.7 g/dl (12.0-16.0) L 12/09/24 23:17 POC Hgb 10.2 g/dl (12.0-16.0) L 12/09/24 23:21 Hct 28.5 % (37.0-47.0) L 12/09/24 23:17 POC Hct 30 % (37-47) L 12/09/24 23:21 MCV 82.4 fL (80.0-100.0) 12/09/24 23:17 MCH 28.0 pg (25.0-34.0) 12/09/24 23:17 MCHC 34.0 g/dL (32.0-36.0) 12/09/24 23:17 RDW Std Deviation 37.0 fL (36.4-46.3) 12/09/24 23:17 RDW Coeff of Sadia 12.3 % (11.5-14.5) 12/09/24 23:17 Plt Count 351 K/uL (130-400) 12/09/24 23:17 MPV 9.8 fL (9.4-12.4) 12/09/24 23:17 Immature Gran % (Auto) 0.6 % 12/09/24 23:17 Neut % (Auto) 64.3 % 12/09/24 23:17 Lymph % (Auto) 24.2 % 12/09/24 23:17 [place] % (Auto) 8.1 % 12/09/24 23:17 Eos % (Auto) 2.1 % 12/09/24 23:17 Baso % (Auto) 0.7 % 12/09/24 23:17 Neut # (Auto) 9.31 K/uL (1.40-6.50) H 12/09/24 23:17 Lymph # (Auto) 3.51 K/uL (1.20-3.40) H 12/09/24 23:17 [place] # (Auto) 1.18 K/uL (0.11-0.59) H 12/09/24 23:17 Eos # (Auto) 0.30 K/uL (0.00-0.50) 12/09/24 23:17 Baso # (Auto) 0.10 K/uL (0.00-0.20) 12/09/24 23:17 Immature Gran # (Auto) 0.09 K/uL (0.01-0.20) 12/09/24 23:17 POC Sodium 130 mmol/L (135-144) L 12/09/24 23:21 Sodium 131 mmol/L (136-145) L 12/09/24 23:17 POC Potassium 2.7 mmol/L (3.3-5.0) L 12/09/24 23:21 Potassium 2.8 mmol/L (3.5-5.1) L 12/09/24 23:17 POC Chloride 91 mmol/L (101-112) L 12/09/24 23:21 Chloride 91 mmol/L (98-107) L 12/09/24 23:17 Carbon Dioxide 23 mmol/L (21-32) 12/09/24 23:17 POC Total CO2 25 mmol/L (24-31) 12/09/24 23:21 Anion Gap 17 (3-11) H 12/09/24 23:17 POC Anion Gap 17.0 mmol/L (16-25) 12/09/24 23:21 POC BUN 29 mg/dl (7-18) H 12/09/24 23:21 BUN 35 mg/dl (6-23) H 12/09/24 23:17 Creatinine 1.74 mg/dl (0.6-1.2) H 12/09/24 23:17 POC Creatinine 1.9 mg/dl (0.6-1.3) H 12/09/24 23:21 Est Cr Clr Drug Dosing Not Reportable 12/09/24 23:17 eGFR 29.85 12/09/24 23:17 BUN/Creatinine Ratio 20.1 (10-20) H 12/09/24 23:17 Glucose 204 mg/dl (70-99(Fasting)) H 12/09/24 23:17 POC Glucose (other) 205 mg/dl (70-99) H 12/09/24 23:21 Osmolality 282 mOsm/kg (280-300) 12/09/24 23:17 Calcium 9.8 mg/dl (8.6-10.3) 12/09/24 23:17 POC Ioniz Calcium Damon 1.03 mmol/l (1.12-1.32) L 12/09/24 23:21 Magnesium 1.6 mg/dl (1.7-2.4) L 12/09/24 23:17 Total Bilirubin 0.4 mg/dl (0.2-1.0) 12/09/24 23:17 AST 34 U/L (13-39) 12/09/24 23:17 ALT 31 U/L (7-52) 12/09/24 23:17 Alkaline Phosphatase 100 U/L (34-104) 12/09/24 23:17 Troponin I High Sens 14.6 pg/ml (0-14) H D 12/10/24 02:54 Total Protein 7.2 gm/dl (6.0-8.3) 12/09/24 23:17 Albumin 3.8 gm/dl (3.4-5.0) 12/09/24 23:17 Globulin 3.4 gm/dl (2.5-4.0) 12/09/24 23:17 Albumin/Globulin Ratio 1.1 (0.9-2) 12/09/24 23:17 Lipase 67 U/L (11-82) 12/09/24 23:17 TSH 2.118 uIu/ml (0.300-4.500) 12/10/24 02:54 Urine Color Yellow 12/10/24 03:44 Urine Appearance Clear (Clear) 12/10/24 03:44 Urine pH 8.0 (4.5-7.5) H 12/10/24 03:44 Ur Specific [place] 1.017 (1.000-1.030) 12/10/24 03:44 Urine Protein 2+ (Negative) H 12/10/24 03:44 Urine Glucose (UA) Trace (Negative) H 12/10/24 03:44 Urine Ketones Trace (Negative) H 12/10/24 03:44 Urine Blood 2+ (Negative) H 12/10/24 03:44 Urine Nitrite Negative (Negative) 12/10/24 03:44 Urine Bilirubin Negative (Negative) 12/10/24 03:44 Urine Urobilinogen Negative (Negative) 12/10/24 03:44 Ur Leukocyte Esterase 1+ (Negative) H 12/10/24 03:44 Urine WBC (Auto) 11-20 /hpf (0-5) H 12/10/24 03:44 Urine RBC (Auto) 0-2 /hpf (0-2) 12/10/24 03:44 U Hyaline Cast (Auto) 0-2 /lpf (0-2) 12/10/24 03:44 U Epithel Cells (Auto) 0-2 /hpf (0-2) 12/10/24 03:44 Urine Bacteria (Auto) None Seen (None Seen) 12/10/24 03:44 Urine Osmolality 583 mOsm/kg (500-800) 12/10/24 03:44 Impressions Chest X-Ray 12/09/24 23:21 EXAM: XR chest 1V portable CLINICAL HISTORY: Chest pain, nonspecific TECHNIQUE: Radiograph of chest was acquired. COMPARISON: none FINDINGS: The lungs are clear and well-expanded with no pulmonary infiltrate or pleural effusion. The cardiomediastinal silhouette is within normal limits. No acute osseous abnormality. IMPRESSION: 1. No acute cardiopulmonary disease. Electronically signed by Van Olsen 12-10-2024 01:07 AM Gallbladder Ultrasound 12/09/24 23:23 EXAM: US gallbladder CLINICAL HISTORY: ruq pain TECHNIQUE: Ultrasound examination of the RUQ was performed using a [high-frequency transducer]. Scanning was performed with the patient in supine position. COMPARISON: None. FINDINGS: Liver: Liver size: Liver appears normal in size with homogeneous echotexture. Measuring 16.8 cm. No evidence of focal lesions, cysts, or masses. Hepatic vasculature appears normal. Gallbladder: Gallbladder size: The gallbladder is visualized and appears normal in size and shape, with a small amount of sludge noted. No gallstones, wall thickening measuring 1.5 mm, or pericholecystic fluid noted. No evidence of gallbladder wall edema or signs of acute cholecystitis. Biliary Tree: Common bile duct diameter: [4.7 mm].The common bile duct is within normal limits in caliber and not dilated. No evidence of choledocholithiasis or biliary obstruction. Right Kidney: Right kidney size: [measurements in length (9.2 cm), height (4.1 cm) and width (4.3 cm)]. The right kidney appears normal in size with preserved corticomedullary differentiation. No evidence of hydronephrosis, renal cysts, or masses. Right Adrenal Gland: A rounded mixed texture lesion of predominant echogenic appearance was noted at the right suprarenal region, measuring 6.1x 6.5x 5..4, separable from the kidney, and likely adrenal myelolipoma. IMPRESSION: - Right suprarenal heterogenous mass of predominant echogenic texture, suggesting fatty component mostly myelolipoma; further assessment with CT/ MRI advised. - Small gallbladder sludge. Electronically signed by Alec Gordillo 12-10-2024 02:15 AM Abdomen/Pelvis CT 12/10/24 00:51 EXAM: CT abd pelvis wo con CLINICAL HISTORY: severe pain TECHNIQUE: Contiguous axial images were obtained from the level of the diaphragm to the pubic symphysis without intravenous or oral contrast. Coronal and sagittal reconstructions were likewise performed and indicated to increase the sensitivity for detecting clinically relevant pathology. CT scan was performed according to ALARA (as low as reasonably achievable). COMPARISON: none FINDINGS: The visualized lung bases are clear. Evaluation of the abdominal and pelvic visceral organs is limited without intravenous contrast. The unenhanced liver, spleen, pancreas are grossly unremarkable. A predominantly fat containing well defined mass seen in right adrenal gland measuring about 5.7x5.3x5.4cm. Small nodule also seen in left adrenal gland measuring 18 X 14 mm in size. The gallbladder is present. A radiodense calculus of size 3mm seen at neck. No pericholecystic inflammation. The kidneys are normal in size and attenuation without obvious calcification. There is no hydronephrosis or perinephric stranding. The ureters are normal in caliber. No adenopathy or fluid collections are seen. Multiple diverticuli of average size 4-5mm seen in cecum, ascending/descending colon and sigmoid colon. No evidence of focal or diffuse bowel wall thickening or evidence of bowel obstruction is seen. The appendix is not visualized. Diffuse atherosclerotic wall calcification of abdominal aorta. Degenerative changes in visualized spine. The urinary bladder is normal in contour. Post cholecystectomy status. No aggressive appearing osseous lesions are identified. Small sliding hiatus hernia. IMPRESSION: 1. Cholelithiasis with no evidence of cholecystitis. 2. Right adrenal myelolipoma. 3. Uncomplicated colonic diverticulosis. 4. Small sliding hiatus hernia. 5. Small nodule also seen in left adrenal gland measuring 18 X 14 mm in size. Advised clinical correlation and further evaluation with CT adrenal protocol. Electronically signed by Van Olsen 12-10-2024 02:36 AM ECG Additional Comments: ECG. Normal sinus rhythm at the rate of 64. Left bundle branch block. No significant change was found. QTc 530 Code Status & VTE Plan VTE Prophylaxis Plan VTE Prophylaxis will be ordered: Yes
[2024-12-10] MEDS ORDERED: NITROGLYCERIN SL 0.4 MG/TAB TAB SL PRN (07:31)
[2024-12-10] MEDS ORDERED: CARBOHYDRATES FOR HYPOGLYCEMIA PO PRN (07:31)
[2024-12-10] MEDS ORDERED: GLUCOSE 40% GEL 15 GM TUBE PO PRN (07:31)
[2024-12-10] MEDS ORDERED: GLUCOSE 10 TAB/TUBE PO PRN (07:31)
[2024-12-10] MEDS ORDERED: DEXTROSE 50% 50 ML SYRINGE IV PRN (07:31)
[2024-12-10] MEDS ORDERED: GLUCAGON FOR INJ 1 MG VIAL SQ PRN (07:31)
[2024-12-10] MEDS ORDERED: HYDROmorphone INJ 0.5 MG/0.5 ML SYR IV PRN ×2 (07:31)
[2024-12-10] MEDS ORDERED: POTASSIUM CHLORIDE CRTAB 20 MEQ TABCR PO STA (07:50)
[2024-12-10 09:10] LABS: Basophils # (auto) 0.06 K/uL (0.00-0.20); Basophils % (auto) 0.5 %; Eosinophils # (auto) 0.02 K/uL (0.00-0.50); Eosinophils % (auto) 0.2 %; Hematocrit (blood only) 27.5 % (37.0-47.0); Immature Granulocytes # (auto) 0.06 K/uL (0.01-0.20); Immature Granulocytes % (auto) 0.5 %; Lymphocytes # (auto) 1.22 K/uL (1.20-3.40); Lymphocytes % (auto) 10.1 %; Mean Corpuscular Hemoglobin 27.4 pg (25.0-34.0); Mean Corpuscular Hgb Conc 32.7 g/dL (32.0-36.0); Mean Corpuscular Volume 83.6 fL (80.0-100.0); Mean Platelet Volume 10.5 fL (9.4-12.4); Monocytes # (auto) 0.54 K/uL (0.11-0.59); Monocytes % (auto) 4.5 %; Neutrophils # (auto) 10.19 K/uL (1.40-6.50); Neutrophils % (auto) 84.2 %; Platelet Count 294 K/uL (130-400); RDW Coefficient of Variation 12.2 % (11.5-14.5); RDW Standard Deviation 37.2 fL (36.4-46.3); Red Blood Count 3.29 M/uL (4.20-5.40); White Blood Count 12.09 K/ul (4.8-10.8)
--- NOTE | 2024-12-10 09:17 | Electrocardiogram Report ---
Test Reason : Blood Pressure : */* mmHG Vent. Rate : 67 BPM Atrial Rate : 67 BPM P-R Int : 172 ms QRS Dur : 132 ms QT Int : 516 ms P-R-T Axes : 50 -17 100 degrees QTcB Int : 545 ms Normal sinus rhythm Left bundle branch block Abnormal ECG No previous ECGs available Confirmed by Reji Freeman ([id number]) on 12/10/2024 9:16:54 AM Referred By: REFERRED SELF Confirmed By: Reji Freeman
--- NOTE | 2024-12-10 09:18 | Electrocardiogram Report ---
Test Reason : Blood Pressure : */* mmHG Vent. Rate : 64 BPM Atrial Rate : 64 BPM P-R Int : 196 ms QRS Dur : 138 ms QT Int : 514 ms P-R-T Axes : 40 -22 106 degrees QTcB Int : 530 ms Normal sinus rhythm Left bundle branch block Abnormal ECG When compared with ECG of 09-Dec-2024 23:14, No significant change was found Confirmed by Reji Freeman ([id number]) on 12/10/2024 9:18:41 AM Referred By: REFERRED SELF Confirmed By: Reji Freeman
[2024-12-10] MEDS: ASPIRIN 81 MG ECTAB PO SCH (09:42)
[2024-12-10] MEDS: PANTOprazole 40 MG TAB PO SCH (09:42)
[2024-12-10] MEDS: MAGNESIUM OXIDE 400 MG TAB PO SCH (09:42)
[2024-12-10] MEDS: INSULIN ASPART PER UNIT CHARGE SC SCH ×2 (09:43→16:51)
[2024-12-10] MEDS: SODIUM CHLORIDE 0.9% 1,000 ML IV SCH (09:43)
[2024-12-10 09:44] LABS: Folate (Folic Acid),Ser orPlas > 22.30 ng/ml (>5.38)
[2024-12-10 09:45] LABS: Vitamin B12 490 pg/ml (180-914)
[2024-12-10] MEDS: PIPERACILLIN/TAZOBACTAM 4.5 GM/100 ML BAG IV ONE (09:53)
--- NOTE | 2024-12-10 10:24 | Surgery Consultation ---
Date of Consultation December 10, 2024 Assessment & Plan (1) Biliary colic: (2) Nausea and vomitin yo female who presented to ED with nausea, multiple episodes of bilious vomiting and RUQ abdominal pain. Leukocytosis of 14k , t. bili, lfts wnl. Imaging with US and CT abd/pelvis showing gallbladder sludge but no evidence of cholecystitis. No biliary obstruction , dilated CBD on US. Plan: There is no evidence of acute cholecystitis on multiple imaging. Mild leukocytosis could be secondary to mild dehydration and multiple episodes of vomiting. LFTS and t. bili completely normal. Exam with tenderness in RUQ but negative narvaez's . No indication for urgent cholecystectomy based on biliary colic without cholecystitis but discussed with patient that we could discuss outpatient cholecystectomy once she is medically optimized given multiple electrolyte abnormalities and elevated Troponin. await ECHO results await repeat labs Dr. Jonas has seen and examined patient agrees with above. Supervising Physician Co-Signing Physician Notes I have seen and examined the patient personally and agree with the above assessment and plan. In brief, she had [place] food and developed nausea and vomiting as well as upper abdominal pain. She does not seem to have abdominal pain at this time. She has multiple other comorbidities. We are awaiting an echo results. There is no need for urgent cholecystectomy at this time. We will await the results of her testing and wait till she is medically optimized. She will most likely need outpatient cholecystectomy in the near future. History of Present Illness Reason for Consultation: Biliary colic Requesting Physician: Dr. Cielo MD Attending Physician: Luther Baron DO History of Present Illness Ava is a 79 yo female with history of type 2 diabetes, dyslipidemia, left adrenal adenoma, intraductal papillary mucinous neoplasm, hypertension, diverticulosis colon, Damon, GERD, CKD stage III, osteoporosis, osteoarthritis, history of glaucoma, presented to ED with nausea, vomiting and RUQ abdominal pain. Sometimes pain is in the middle of the chest. Denies any fevers but felt chilled. Uri[place] without difficulty. No changes in bowel habits. . Last night patient also felt some numbness in the face and the left arm but that got resolved now. Patient recently was treated with p.o. Augmentin for diverticulitis and completed the course 2 weeks ago. LLQ abdominal has resolved after oral Augmentin. Currently states she is feeling nauseous at times, mild to moderate pain in the RUQ. No fevers or chills. Allergies Allergy/AdvReac Type Severity Reaction Status Date / Time Iodinated Contrast Media Allergy Unknown (ivp dye) Verified 12/10/24 04:12 Unknown Quinolones Allergy Unknown Unknown Verified 12/10/24 04:12 Sulfa (Sulfonamide Allergy Unknown Unknown Verified 12/10/24 04:12 Antibiotics) tetracycline Allergy Unknown Unknown Verified 12/10/24 04:12 Tetracyclines Allergy Unknown Unknown Verified 12/10/24 04:12 Home Medications Medication Instructions Recorded Confirmed Type aspirin 81 mg tablet,delayed 81 mg PO DAILY 12/10/24 12/10/24 History release chlorthalidone 25 mg tablet 25 mg PO DAILY 12/10/24 12/10/24 History losartan 25 mg tablet 25 mg PO DAILY 12/10/24 12/10/24 History metformin 500 mg tablet 500 mg PO DAILY 12/10/24 12/10/24 History metoprolol succinate 25 mg 25 mg PO DAILY 12/10/24 12/10/24 History tablet,extended release 24 hr omeprazole 20 mg capsule,delayed 20 mg PO DAILY 12/10/24 12/10/24 History release rosuvastatin 40 mg tablet 40 mg PO DAILY 12/10/24 12/10/24 History Patient History Social History Smoking Status: Never smoker Hx Alcohol Use: No Hx Substance Use: No Preferred Language: [place]orese Communication Ability: Effective Assistant Activities Director Required: No Beliefs That Will Affect Care: None Current Living Situation: Spouse Feels Safe at Home: Yes Review of Systems Review of Systems: All systems reviewed & are unremarkable except as noted in HPI & below Physical Exam Constitutional: WD/WN, vitals as above cooperative and comfortable; no acute distress and not ill appearing Respiratory: normal respiratory effort, lungs clear to auscultation Cardiovascular: RRR, no murmur, no edema Gastrointestinal (Abdomen): Inspection/Auscultation: abdomen normal to inspection; abdomen not distended Percussion/Palpation: + abdomen tender (RUQ, negative Narvaez's sign) and abdomen soft; no guarding, abdomen not rigid and abdomen not firm Skin: no rashes, warm and dry no jaundice Psychiatric: Orientation: alert and oriented x 3 Results & Data Vital Signs (Past 12 Hours) Vital Signs Temp Pulse Pulse Resp BP BP Pulse Ox 02/04/25 09:56 36.8 C 74 19 174/79 H 96 12/10/24 07:32 12/10/24 07:10 36.8 C 79 18 152/62 H 98 12/10/24 06:00 81 18 163/76 H 100 12/10/24 05:30 83 15 136/63 12/10/24 05:00 72 151/78 H 100 12/10/24 04:36 67 13 96 12/10/24 04:30 155/75 H 12/10/24 04:12 67 9 L 100 12/10/24 04:05 68 12/10/24 04:00 164/79 H 12/10/24 03:51 65 9 L 100 12/10/24 03:48 69 12 100 12/10/24 03:30 150/73 H 12/10/24 03:09 65 11 L 100 12/10/24 02:00 68 16 162/76 H 100 12/10/24 01:51 86 L 12/10/24 00:50 66 21 151/73 H 97 12/09/24 23:23 98 12/09/24 23:20 72 12/09/24 23:09 36.6 C 108 H 24 131/68 97 Pulse Ox O2 Del Method O2 Del Method O2 Flow Rate O2 Flow Rate 12/10/24 09:56 Room Air 12/10/24 07:32 98 Nasal Cannula 2 12/10/24 07:10 Room Air 12/10/24 06:00 Room Air 12/10/24 05:30 12/10/24 05:00 Room Air 12/10/24 04:36 Room Air 12/10/24 04:30 12/10/24 04:12 Room Air 12/10/24 04:05 12/10/24 04:00 12/10/24 03:51 Room Air 12/10/24 03:48 12/10/24 03:30 12/10/24 03:09 12/10/24 02:00 Nasal Cannula 2 12/10/24 01:51 Nasal Cannula 0 12/10/24 00:50 Room Air 12/09/24 23:23 Room Air 12/09/24 23:20 12/09/24 23:09 Room Air Laboratory Results 12/10/24 12/10/24 12/10/24 Range/Units 07:38 03:44 02:54 WBC 12.09 H (4.8-10.8) K/ul RBC 3.29 L (4.20-5.40) M/uL Hgb 9.0 L (12.0-16.0) g/dl POC Hgb (12.0-16.0) g/dl Hct 27.5 L (37.0-47.0) % POC Hct (37-47) % MCV 83.6 (80.0-100.0) fL MCH 27.4 (25.0-34.0) pg MCHC 32.7 (32.0-36.0) g/dL RDW Std Deviation 37.2 (36.4-46.3) fL RDW Coeff of Sadia 12.2 (11.5-14.5) % Plt Count 294 (130-400) K/uL MPV 10.5 (9.4-12.4) fL Immature Gran % (Auto) 0.5 % Neut % (Auto) 84.2 % Lymph % (Auto) 10.1 % Clarke % (Auto) 4.5 % Eos % (Auto) 0.2 % Baso % (Auto) 0.5 % Neut # (Auto) 10.19 H (1.40-6.50) K/uL Lymph # (Auto) 1.22 (1.20-3.40) K/uL Clarke # (Auto) 0.54 (0.11-0.59) K/uL Eos # (Auto) 0.02 (0.00-0.50) K/uL Baso # (Auto) 0.06 (0.00-0.20) K/uL Immature Gran # (Auto) 0.06 (0.01-0.20) K/uL POC Sodium (135-144) mmol/L Sodium (136-145) mmol/L POC Potassium (3.3-5.0) mmol/L Potassium (3.5-5.1) mmol/L POC Chloride (101-112) mmol/L Chloride (98-107) mmol/L Carbon Dioxide (21-32) mmol/L POC Total CO2 (24-31) mmol/L Anion Gap (3-11) POC Anion Gap (16-25) mmol/L POC BUN (7-18) mg/dl BUN (6-23) mg/dl Creatinine (0.6-1.2) mg/dl POC Creatinine (0.6-1.3) mg/dl Est Cr Clr Drug Dosing eGFR BUN/Creatinine Ratio (10-20) Glucose (70-99(Fasting)) mg/dl POC Glucose 204 H (70-99) mg/dl POC Glucose (other) (70-99) mg/dl Osmolality (280-300) mOsm/kg Calcium (8.6-10.3) mg/dl POC Ioniz Calcium Damon (1.12-1.32) mmol/l Magnesium (1.7-2.4) mg/dl Total Bilirubin (0.2-1.0) mg/dl AST (13-39) U/L ALT (7-52) U/L Alkaline Phosphatase (34-104) U/L Troponin I High Sens 14.6 H D (0-14) pg/ml Total Protein (6.0-8.3) gm/dl Albumin (3.4-5.0) gm/dl Globulin (2.5-4.0) gm/dl Albumin/Globulin Ratio (0.9-2) Lipase (11-82) U/L Vitamin B12 490 (180-914) pg/ml Folate > 22.30 (>5.38) ng/ml TSH 2.118 (0.300-4.500) uIu/ml Urine Color Yellow Urine Appearance Clear (Clear) Urine pH 8.0 H (4.5-7.5) Ur Specific [place] 1.017 (1.000-1.030) Urine Protein 2+ H (Negative) Urine Glucose (UA) Trace H (Negative) Urine Ketones Trace H (Negative) Urine Blood 2+ H (Negative) Urine Nitrite Negative (Negative) Urine Bilirubin Negative (Negative) Urine Urobilinogen Negative (Negative) Ur Leukocyte Esterase 1+ H (Negative) Urine WBC (Auto) 11-20 H (0-5) /hpf Urine RBC (Auto) 0-2 (0-2) /hpf U Hyaline Cast (Auto) 0-2 (0-2) /lpf U Epithel Cells (Auto) 0-2 (0-2) /hpf Urine Bacteria (Auto) None Seen (None Seen) Urine Osmolality 583 (500-800) mOsm/kg 12/09/24 12/09/24 Range/Units 23:21 23:17 WBC 14.49 H (4.8-10.8) K/ul RBC 3.46 L (4.20-5.40) M/uL Hgb 9.7 L (12.0-16.0) g/dl POC Hgb 10.2 L (12.0-16.0) g/dl Hct 28.5 L (37.0-47.0) % POC Hct 30 L (37-47) % MCV 82.4 (80.0-100.0) fL MCH 28.0 (25.0-34.0) pg MCHC 34.0 (32.0-36.0) g/dL RDW Std Deviation 37.0 (36.4-46.3) fL RDW Coeff of Sadia 12.3 (11.5-14.5) % Plt Count 351 (130-400) K/uL MPV 9.8 (9.4-12.4) fL Immature Gran % (Auto) 0.6 % Neut % (Auto) 64.3 % Lymph % (Auto) 24.2 % Clarke % (Auto) 8.1 % Eos % (Auto) 2.1 % Baso % (Auto) 0.7 % Neut # (Auto) 9.31 H (1.40-6.50) K/uL Lymph # (Auto) 3.51 H (1.20-3.40) K/uL Clarke # (Auto) 1.18 H (0.11-0.59) K/uL Eos # (Auto) 0.30 (0.00-0.50) K/uL Baso # (Auto) 0.10 (0.00-0.20) K/uL Immature Gran # (Auto) 0.09 (0.01-0.20) K/uL POC Sodium 130 L (135-144) mmol/L Sodium 131 L (136-145) mmol/L POC Potassium 2.7 L (3.3-5.0) mmol/L Potassium 2.8 L (3.5-5.1) mmol/L POC Chloride 91 L (101-112) mmol/L Chloride 91 L (98-107) mmol/L Carbon Dioxide 23 (21-32) mmol/L POC Total CO2 25 (24-31) mmol/L Anion Gap 17 H (3-11) POC Anion Gap 17.0 (16-25) mmol/L POC BUN 29 H (7-18) mg/dl BUN 35 H (6-23) mg/dl Creatinine 1.74 H (0.6-1.2) mg/dl POC Creatinine 1.9 H (0.6-1.3) mg/dl Est Cr Clr Drug Dosing Not Reportable eGFR 29.85 BUN/Creatinine Ratio 20.1 H (10-20) Glucose 204 H (70-99(Fasting)) mg/dl POC Glucose (70-99) mg/dl POC Glucose (other) 205 H (70-99) mg/dl Osmolality 282 (280-300) mOsm/kg Calcium 9.8 (8.6-10.3) mg/dl POC Ioniz Calcium Damon 1.03 L (1.12-1.32) mmol/l Magnesium 1.6 L (1.7-2.4) mg/dl Total Bilirubin 0.4 (0.2-1.0) mg/dl AST 34 (13-39) U/L ALT 31 (7-52) U/L Alkaline Phosphatase 100 (34-104) U/L Troponin I High Sens 8.9 (0-14) pg/ml Total Protein 7.2 (6.0-8.3) gm/dl Albumin 3.8 (3.4-5.0) gm/dl Globulin 3.4 (2.5-4.0) gm/dl Albumin/Globulin Ratio 1.1 (0.9-2) Lipase 67 (11-82) U/L Vitamin B12 (180-914) pg/ml Folate (>5.38) ng/ml TSH (0.300-4.500) uIu/ml Urine Color Urine Appearance (Clear) Urine pH (4.5-7.5) Ur Specific [place] (1.000-1.030) Urine Protein (Negative) Urine Glucose (UA) (Negative) Urine Ketones (Negative) Urine Blood (Negative) Urine Nitrite (Negative) Urine Bilirubin (Negative) Urine Urobilinogen (Negative) Ur Leukocyte Esterase (Negative) Urine WBC (Auto) (0-5) /hpf Urine RBC (Auto) (0-2) /hpf U Hyaline Cast (Auto) (0-2) /lpf U Epithel Cells (Auto) (0-2) /hpf Urine Bacteria (Auto) (None Seen) Urine Osmolality (500-800) mOsm/kg Diagnostic Findings EXAM: CT abd pelvis wo con CLINICAL HISTORY: severe pain TECHNIQUE: Contiguous axial images were obtained from the level of the diaphragm to the pubic symphysis without intravenous or oral contrast. Coronal and sagittal reconstructions were likewise performed and indicated to increase the sensitivity for detecting clinically relevant pathology. CT scan was performed according to ALARA (as low as reasonably achievable). COMPARISON: none FINDINGS: The visualized lung bases are clear. Evaluation of the abdominal and pelvic visceral organs is limited without intravenous contrast. The unenhanced liver, spleen, pancreas are grossly unremarkable. A predominantly fat containing well defined mass seen in right adrenal gland measuring about 5.7x5.3x5.4cm. Small nodule also seen in left adrenal gland measuring 18 X 14 mm in size. The gallbladder is present. A radiodense calculus of size 3mm seen at neck. No pericholecystic inflammation. The kidneys are normal in size and attenuation without obvious calcification. There is no hydronephrosis or perinephric stranding. The ureters are normal in caliber. No adenopathy or fluid collections are seen. Multiple diverticuli of average size 4-5mm seen in cecum, ascending/descending colon and sigmoid colon. No evidence of focal or diffuse bowel wall thickening or evidence of bowel obstruction is seen. The appendix is not visualized. Diffuse atherosclerotic wall calcification of abdominal aorta. Degenerative changes in visualized spine. The urinary bladder is normal in contour. Post cholecystectomy status. No aggressive appearing osseous lesions are identified. Small sliding hiatus hernia. IMPRESSION: 1. Cholelithiasis with no evidence of cholecystitis. 2. Right adrenal myelolipoma. 3. Uncomplicated colonic diverticulosis. 4. Small sliding hiatus hernia. 5. Small nodule also seen in left adrenal gland measuring 18 X 14 mm in size. Advised clinical correlation and further evaluation with CT adrenal protocol. EXAM: US gallbladder CLINICAL HISTORY: ruq pain TECHNIQUE: Ultrasound examination of the RUQ was performed using a [high-frequency transducer]. Scanning was performed with the patient in supine position. COMPARISON: None. FINDINGS: Liver: Liver size: Liver appears normal in size with homogeneous echotexture. Measuring 16.8 cm. No evidence of focal lesions, cysts, or masses. Hepatic vasculature appears normal. Gallbladder: Gallbladder size: The gallbladder is visualized and appears normal in size and shape, with a small amount of sludge noted. No gallstones, wall thickening measuring 1.5 mm, or pericholecystic fluid noted. No evidence of gallbladder wall edema or signs of acute cholecystitis. Biliary Tree: Common bile duct diameter: [4.7 mm].The common bile duct is within normal limits in caliber and not dilated. No evidence of choledocholithiasis or biliary obstruction. Right Kidney: Right kidney size: [measurements in length (9.2 cm), height (4.1 cm) and width (4.3 cm)]. The right kidney appears normal in size with preserved corticomedullary differentiation. No evidence of hydronephrosis, renal cysts, or masses. Right Adrenal Gland: A rounded mixed texture lesion of predominant echogenic appearance was noted at the right suprarenal region, measuring 6.1x 6.5x 5..4, separable from the kidney, and likely adrenal myelolipoma. IMPRESSION: - Right suprarenal heterogenous mass of predominant echogenic texture, suggesting fatty component mostly myelolipoma; further assessment with CT/ MRI advised. - Small gallbladder sludge.
[2024-12-10] MEDS: PROMETHAZINE 12.5 MG/50.5 ML BAG IV PRN (10:25)
[2024-12-10] MEDS: METOPROLOL SUCC 25MG EXT REL TAB PO SCH (10:38)
[2024-12-10] MEDS: ROSUVASTATIN CALCIUM 20 MG TAB PO SCH (10:38)
[2024-12-10 11:00] LABS: Albumin Level 3.8 gm/dl (3.4-5.0); BUN Creatinine Ratio 18.3 (10-20); Bilirubin Direct 0.1 mg/dl (0-0.2); Bilirubin,Total 0.4 mg/dl (0.2-1.0); Calcium 9.4 mg/dl (8.6-10.3); Creatinine Clr Calc Pharmacy 26.9 ml/min; Magnesium 2.1 mg/dl (1.7-2.4); Potassium 3.8 mmol/L (3.5-5.1); Total Protein 7.1 gm/dl (6.0-8.3)
[2024-12-10] MEDS ORDERED: ACETAMINOPHEN 1,000 MG/100 ML VIAL IV PRN (12:16)
--- NOTE | 2024-12-10 12:16 | Gastrointestinal Consultation ---
Date of Consultation December 10, 2024 Assessment & Plan (1) RUQ pain: (2) Anemia: Plan -See general surgery note regarding outpatient cholecystectomy planning -Would advise Protonix 40 mg IV push BID -Will return this afternoon when patient is more awake to discuss her history further to determine story regarding the chronicity of her anemia and further details about RUQ pain. Supervising Physician Co-Signing Physician Notes Patient reassessed with with the PA. She is now awake and responsive to voice. States she was treated for diverticulitis with 5 days of antibiotics 7 to 10 days ago. She subsequently developed episode of right upper quadrant pain that began around 10 PM and persisted for 2 hours prompting visit to the emergency room. She was treated with pain medications there which accounted for her low lack of response when originally visited. She has had no previous episodes of right upper quadrant pain she denies any jaundice tea colored urine chills or rigors. Still notes some right upper quadrant discomfort. On examination she is tender in her right upper quadrant with a positive Narvaez sign. She does not appear jaundiced. Biliary colic versus acute cholecystitis. Plan will do a HIDA scan without CCK in the morning. Bile duct does not appear to dilate and I do not believe she has common duct stone at this time. History of Present Illness Reason for Consultation: Biliary colic Attending Physician: Luther Baron, History of Present Illness Patient is a 79 yo female with multiple episodes of RUQ pain. This was reportedly so severe that she presented to the ED last evening. There was some associated n/v. She notes that the pain radiates between RUQ and epigastric pain. She did not experiencing GI bleeding, diarrhea, constipation. No other GI complaints at this time. She was recently treated with Augmentin for diverticulitis. She completed the treatment for that 2 weeks ago. LFTs are entirely normal. Imaging includes an abdominal US that indicated gallbladder sludge. A CT scan of the abdomen/pelvis noted gallstones. No imaging findings of acute cholecystitis. WBC count elevated at 14,490 on admission. Now trending down to 12,090. T bili 0.4. AST 34, ALT 31, AP 100. Troponin slightly elavted at 14.6. Patient takes Omeprazole 20 mg daily at home. No ongoing heartburn/reflux. She reportedly has had an EGD but I do not have this result. The patient has been seen by general surgery this admission. They are recommended outpatient evaluation for consideration of elective cholecystectomy, but do not feel at this time there is concern for acute cholecystitis. Patient is anemic with a hemoglobin and hematocrit of 9.0/27.5. BUN 28. Creatinine 1.53. She takes a Baby Aspirin daily. No available baseline in the [facility] system for her H/H. The patient was just given Phenergan and will not remain awake during my evaluation. Allergies Allergy/AdvReac Type Severity Reaction Status Date / Time Iodinated Contrast Media Allergy Unknown (ivp dye) Verified 12/10/24 04:12 Unknown Quinolones Allergy Unknown Unknown Verified 12/10/24 04:12 Sulfa (Sulfonamide Allergy Unknown Unknown Verified 12/10/24 04:12 Antibiotics) tetracycline Allergy Unknown Unknown Verified 12/10/24 04:12 Tetracyclines Allergy Unknown Unknown Verified 12/10/24 04:12 Home Medications Medication Instructions Recorded Confirmed Type aspirin 81 mg tablet,delayed 81 mg PO DAILY 12/10/24 12/10/24 History release chlorthalidone 25 mg tablet 25 mg PO DAILY 12/10/24 12/10/24 History losartan 25 mg tablet 25 mg PO DAILY 12/10/24 12/10/24 History metformin 500 mg tablet 500 mg PO DAILY 12/10/24 12/10/24 History metoprolol succinate 25 mg 25 mg PO DAILY 12/10/24 12/10/24 History tablet,extended release 24 hr omeprazole 20 mg capsule,delayed 20 mg PO DAILY 12/10/24 12/10/24 History release rosuvastatin 40 mg tablet 40 mg PO DAILY 12/10/24 12/10/24 History Patient History Social History Smoking Status: Never smoker Hx Alcohol Use: No Hx Substance Use: No Preferred Language: Grenadian Communication Ability: Effective Production Editor Required: No Beliefs That Will Affect Care: None Current Living Situation: Spouse Feels Safe at Home: Yes Review of Systems Review of Systems: Patient will not stay awake for evaluation. Results & Data Vital Signs (Past 12 Hours) Vital Signs Temp Pulse Pulse Pulse Resp BP BP 12/10/24 11:31 71 18 176/71 H 12/10/24 10:34 36.8 C 69 18 171/73 H 12/10/24 10:27 70 19 168/73 H 12/10/24 09:56 36.8 C 74 19 174/79 H 12/10/24 07:32 12/10/24 07:10 36.8 C 79 18 152/62 H 12/10/24 06:00 81 18 163/76 H 12/10/24 05:30 83 15 136/63 12/10/24 05:00 72 151/78 H 12/10/24 04:36 67 13 12/10/24 04:30 155/75 H 12/10/24 04:12 67 9 L 12/10/24 04:05 68 12/10/24 04:00 164/79 H 12/10/24 03:51 65 9 L 12/10/24 03:48 69 12 12/10/24 03:30 150/73 H 12/10/24 03:09 65 11 L 12/10/24 02:00 68 16 162/76 H 12/10/24 01:51 12/10/24 00:50 66 21 151/73 H Pulse Ox Pulse Ox O2 Del Method O2 Del Method O2 Flow Rate O2 Flow Rate 12/10/24 11:31 99 Nasal Cannula 2 12/10/24 10:34 96 Nasal Cannula 2 12/10/24 10:27 99 Room Air 12/10/24 09:56 96 Room Air 12/10/24 07:32 98 Nasal Cannula 2 12/10/24 07:10 98 Room Air 12/10/24 06:00 100 Room Air 12/10/24 05:30 12/10/24 05:00 100 Room Air 12/10/24 04:36 96 Room Air 12/10/24 04:30 12/10/24 04:12 100 Room Air 12/10/24 04:05 12/10/24 04:00 12/10/24 03:51 100 Room Air 12/10/24 03:48 100 12/10/24 03:30 12/10/24 03:09 100 12/10/24 02:00 100 Nasal Cannula 2 12/10/24 01:51 86 L Nasal Cannula 0 12/10/24 00:50 97 Room Air PG Care Time/CCT Total # of Minutes Spent Total Time Spent with Patient: Total time spent is greater than 50% in coordination of care (as documented) at patient's floor/unit and/or counseling patient: Coding Level of Care Code 46869 INT INP/OBS CARE MIN Diagnoses RUQ pain R10.11 Anemia D64.9
--- NOTE | 2024-12-10 12:44 | Hospitalist Progress Note ---
Date of Service December 10, 2024 Assessment & Plan (1) Viral gastroenteritis: (2) Facial paresthesia: (3) Demand ischemia: (4) Symptomatic cholelithiasis: (5) Hypomagnesemia: (6) Chronic iron deficiency anemia: (7) Hypokalemia: (8) Prolonged QT interval: Plan Patient presents to the ED with acute onset of nausea vomiting. Imaging shows some cholelithiasis and gallbladder sludge but no definitive evidence of cholecystitis. LFTs unremarkable. Patient also with some mild anemia which appears to be chronic upon review of outside EMR. Also with severe electrolyte abnormalities. Continue to replace electrolytes as needed Patient just completed a course of Augmentin for diverticulitis. No definitive evidence of bacterial infection at this time. Will discontinue antibiotics and continue to observe off antibiotics Communication with surgery. No definitive indication for any type of immediate surgical intervention or cholecystectomy. Could consider outpatient elective cholecystectomy. Consider HIDA scan if patient continues to have pain GI recommendations pending Phone conversation with patient's she apparently was also complaining of some paresthesias in her face and hand. This was initially thought due to the severe electrolyte abnormalities. Will get head CT to rule out any acute pathology that may explain these paresthesias. Trial of clear liquid diet Patient seems to be quite drowsy and confused I suspect this is due to the Phenergan. Will discontinue Phenergan use Zofran as needed Monitor EKG, QTc. No need for transfusion at this time, consider iron supplementation when able to take oral supplements. Monitor renal function, electrolytes Continue to trend troponin, low suspicion for acute coronary syndrome, suspect demand ischemia possibly all over this is related to a viral gastroenteritis. No reported diarrhea, continue to monitor with recent antibiotics for diverticulitis. Admission and Anticipated Discharge Date Admission Date: December 10, 2024 Subjective Time of my evaluation patient extremely drowsy and sleepy had to awaken her from a deep sleep.. Had just received Phenergan within the last 60 to 90 minutes. Patient admitted she was quite drowsy, denied pain. Physical Exam Physical Exam: Constitutional: Extremely drowsy, nontoxic HEENT: Mucous membranes moist. Lungs: Decreased breath sounds CV: S1-S2, regular Abdomen: Soft, nontender, nondistended, no tympany, negative Narvaez's, no guarding, no rigidity Extremities: No significant edema Neuro: Generalized weakness Psych: Drowsy Results & Data Results & Data Vital Signs (Past 12 Hours) Vital Signs Temp Pulse Pulse Pulse Resp BP BP 12/10/24 11:31 71 18 176/71 H 12/10/24 10:34 36.8 C 69 18 171/73 H 12/10/24 10:27 70 19 168/73 H 12/10/24 09:56 36.8 C 74 19 174/79 H 12/10/24 07:32 12/10/24 07:10 36.8 C 79 18 152/62 H 12/10/24 06:00 81 18 163/76 H 12/10/24 05:30 83 15 136/63 12/10/24 05:00 72 151/78 H 12/10/24 04:36 67 13 12/10/24 04:30 155/75 H 12/10/24 04:12 67 9 L 12/10/24 04:05 68 12/10/24 04:00 164/79 H 12/10/24 03:51 65 9 L 12/10/24 03:48 69 12 12/10/24 03:30 150/73 H 12/10/24 03:09 65 11 L 12/10/24 02:00 68 16 162/76 H 12/10/24 01:51 12/10/24 00:50 66 21 151/73 H Pulse Ox Pulse Ox O2 Del Method O2 Del Method O2 Flow Rate O2 Flow Rate 12/10/24 11:31 99 Nasal Cannula 2 12/10/24 10:34 96 Nasal Cannula 2 12/10/24 10:27 99 Room Air 12/10/24 09:56 96 Room Air 12/10/24 07:32 98 Nasal Cannula 2 12/10/24 07:10 98 Room Air 12/10/24 06:00 100 Room Air 12/10/24 05:30 12/10/24 05:00 100 Room Air 12/10/24 04:36 96 Room Air 12/10/24 04:30 12/10/24 04:12 100 Room Air 12/10/24 04:05 12/10/24 04:00 12/10/24 03:51 100 Room Air 12/10/24 03:48 100 12/10/24 03:30 12/10/24 03:09 100 12/10/24 02:00 100 Nasal Cannula 2 12/10/24 01:51 86 L Nasal Cannula 0 12/10/24 00:50 97 Room Air Diagnostic Findings Reviewed imaging, laboratory and diagnostic studies. Pertinent findings as below. Reviewed external EMR: Reviewed previous EKG, evidence of early left bundle branch block in August 2024, when comparing to current EKG no significant acute changes. Personally reviewed EKG from outside EMR as well as from last night. Reviewed CT scan from November 2024, evidence of cholelithiasis at that time as well. Reviewed discharge summary from November 2024 from [facility]. Patient treated for acute sigmoid diverticulitis with Augmentin. WBC 12.0, improved Hemoglobin 9.0 Sodium 130 Potassium 3.8, improved Creatinine 1.5, improved Magnesium 2.1, improved Iron 26 Percent sat 7% Troponins reviewed mildly increased
--- NOTE | 2024-12-10 12:48 | CT Scan Report ---
CT head/brain wo con CLINICAL HISTORY: Paresthesia. TECHNIQUE: Multiple axial CT images of the head were obtained without contrast. A dose lowering tech nique was utilized adhering to the principles of ALARA. CT DOSE: 625.8 mGy.cm COMPARISON: None FINDINGS: There is mild motion. No intracranial hemorrhage seen. No mass effect, midline shift, or hy drocephalus. No skull fracture. Visualized paranasal sinuses and mastoid air cells are clear. IMPRESSION: No acute findings. ACT 112: Negative or not required by law. The above report was generated using voice recognition software. It may contain grammatical, syntax o r spelling errors. Electronically signed by: Jer Mccarty M.D. 12/10/2024 12:47 PM
[2024-12-10] MEDS ORDERED: Nursing to Pharmacy Communication SCH (14:00)
[2024-12-10 14:57] LABS: Troponin I High Sensitivity 60.1 pg/ml (0-14)
[2024-12-10] MEDS ORDERED: PIPERACILLIN/TAZOBACTAM 4.5 GM/100 ML BAG IV SCH (16:00)
[2024-12-10 17:35] LABS: Albumin Globulin Ratio 1.1 (0.9-2); Albumin Level 3.6 gm/dl (3.4-5.0); BUN Creatinine Ratio 15.3 (10-20); Bilirubin,Total 0.6 mg/dl (0.2-1.0); Calcium 8.7 mg/dl (8.6-10.3); Creatinine Clr Calc Pharmacy 26.2 ml/min; Globulin 3.3 gm/dl (2.5-4.0); Potassium 3.7 mmol/L (3.5-5.1); Total Protein 6.9 gm/dl (6.0-8.3)
[2024-12-10] MEDS: PANTOprazole 40 MG/10 ML SYR IV SCH (20:43)
[2024-12-11] MEDS: ACETAMINOPHEN 325 MG TAB PO PRN (00:04)
[2024-12-11 07:50] LABS: Hematocrit (blood only) 26.9 % (37.0-47.0); Hemoglobin 8.9 g/dl (12.0-16.0); Mean Corpuscular Hemoglobin 28.2 pg (25.0-34.0); Mean Corpuscular Hgb Conc 33.1 g/dL (32.0-36.0); Mean Corpuscular Volume 85.1 fL (80.0-100.0); Mean Platelet Volume 9.6 fL (9.4-12.4); Platelet Count 252 K/uL (130-400); RDW Coefficient of Variation 12.7 % (11.5-14.5); RDW Standard Deviation 39.3 fL (36.4-46.3); Red Blood Count 3.16 M/uL (4.20-5.40); White Blood Count 16.87 K/ul (4.8-10.8)
[2024-12-11 08:10] LABS: Albumin Level 3.3 gm/dl (3.4-5.0); BUN Creatinine Ratio 11.9 (10-20); Bilirubin Direct 0.2 mg/dl (0-0.2); Bilirubin,Total 0.7 mg/dl (0.2-1.0); Calcium 9.1 mg/dl (8.6-10.3); Creatinine Clr Calc Pharmacy 26.8 ml/min; Magnesium 1.8 mg/dl (1.7-2.4); Phosphorus 1.9 mg/dl (2.5-4.9); Potassium 4.2 mmol/L (3.5-5.1); Total Protein 6.4 gm/dl (6.0-8.3)
--- NOTE | 2024-12-11 09:06 | Electrocardiogram Report ---
Test Reason : Blood Pressure : */* mmHG Vent. Rate : 61 BPM Atrial Rate : 61 BPM P-R Int : 158 ms QRS Dur : 126 ms QT Int : 458 ms P-R-T Axes : 40 -12 65 degrees QTcB Int : 461 ms Normal sinus rhythm Left bundle branch block Abnormal ECG When compared with ECG of 09-Dec-2024 23:44, QT has shortened Confirmed by Reji Freeman ([id number]) on 12/11/2024 9:05:56 AM Referred By: REFERRED SELF Confirmed By: Reji Freeman
--- NOTE | 2024-12-11 11:35 | Gastroenterology Progress Note ---
Date of Service December 11, 2024 Assessment & Plan (1) RUQ pain: Plan: -Await result of HIDA scan -Continue to trend LFTs (2) Anemia: Plan: -Continue to monitor H/H -No active GI bleeding at present, suspect chronic issue; Will try to determine if this has been evaluated in the past. Admission and Anticipated Discharge Date Admission Date: December 10, 2024 Supervising Physician Co-Signing Physician Notes Liver test normal. Positive Narvaez sign on exam last evening. HIDA scan shows no gallbladder visualization at 90 minutes. The bile duct appears to be patent. As surgery reassess acute cholecystitis Subjective Patient is off the floor for HIDA testing at this time. LFTs are normal today. H/H 8.9/26.9. No overt GI bleeding. Review of Systems Review of Systems: patient at diagnostic test Results & Data Results & Data Vital Signs (Past 12 Hours) Vital Signs Temp Pulse Pulse Pulse Resp BP Pulse Ox 12/11/24 07:56 37.0 C 68 18 137/76 93 12/11/24 07:15 12/11/24 07:00 65 12/11/24 04:05 36.9 C 64 17 137/56 L 96 O2 Del Method 12/11/24 07:56 Room Air 12/11/24 07:15 Room Air 12/11/24 07:00 12/11/24 04:05 Room Air PG Care Time/CCT Total # of Minutes Spent Total Time Spent with Patient: Total time spent is greater than 50% in coordination of care (as documented) at patient's floor/unit and/or counseling patient: Coding Level of Care Code 31784 SUB INP/OBS CARE 2/35MIN Diagnoses RUQ pain R10.11 Anemia D64.9
[2024-12-11] MEDS: MoRPHine SULFATE 2 MG/ML CARP ONE (12:20)
[2024-12-11] MEDS ORDERED: PHARMACY GLYCEMIC MGMT CONSULT PRN (13:03)
--- NOTE | 2024-12-11 13:16 | Nuclear Medicine Report ---
NM hepatobiliary CLINICAL HISTORY: RUQ pain. TECHNIQUE: Sequential anterior abdominal images were obtained through 90 minutes following the intra venous administration of 5.8 mCi of technetium-99m Choletec. 2 mg morphine sulfate was also given IV . COMPARISON: CT and ultrasound yesterday FINDINGS: There is normal liver uptake. Contrast migrates promptly to the common bile duct and into t he small bowel. The gallbladder is not visualized on the first hour. Morphine was given at 60 minutes . The exam was continued to 90 minutes. Gallbladder was not visualized. IMPRESSION: Findings consistent with cystic duct obstruction. ACT 112: Negative or not required by law. The above report was generated using voice recognition software. It may contain grammatical, syntax o r spelling errors. Electronically signed by: Jer Mccarty M.D. 12/11/2024 1:14 PM
--- NOTE | 2024-12-11 13:29 | Surgery Progress Note ---
Date of Service December 11, 2024 Assessment & Plan (1) Biliary colic: (2) Nausea and vomiting: Plan: 79 yo female who presented to ED with nausea, multiple episodes of bilious vomiting and RUQ abdominal pain. Leukocytosis of 14k , t. bili, lfts wnl. Imaging with US and CT abd/pelvis showing gallbladder sludge but no evidence of cholecystitis. No biliary obstruction , dilated CBD on US. 12/11/2024 Febrile last evening with Tmax of 38.1 Leukocytosis increased to 16,000 from 12,000 T. bili and LFTs are within normal limits Troponin continues to increase from 14-44-60 Persistent right upper quadrant abdominal pain and more tenderness on examination today with +Narvaez's Plan: Will await results of HIDA scan to determine need for cholecystectomy during this admission or as outpatient Continue IV antibiotics pain management as needed Continue current medical management Keep n.p.o. for HIDA scan Dr. Jonas has seen and examined patient and agrees with above ADDENDUM 3:30 PM Hida scan showing cystic duct obstruction. Discussed with patient indication for laparoscopic cholecystectomy given findings on HIDA scan now while inpatient. Discussed procedure, risks, recovery , and restrictions. All questions answered. Will proceed with laparoscopic cholecystectomy tomorrow with Dr. Jonas. Clear liquids tonight, NPO after midnight. repeat am labs NM hepatobiliary CLINICAL HISTORY: RUQ pain. TECHNIQUE: Sequential anterior abdominal images were obtained through 90 minutes following the intravenous administration of 5.8 mCi of technetium-99m Choletec. 2 mg morphine sulfate was also given IV. COMPARISON: CT and ultrasound yesterday FINDINGS: There is normal liver uptake. Contrast migrates promptly to the common bile duct and into the small bowel. The gallbladder is not visualized on the first hour. Morphine was given at 60 minutes. The exam was continued to 90 minutes. Gallbladder was not visualized. IMPRESSION: Findings consistent with cystic duct obstruction. Admission and Anticipated Discharge Date Admission Date: December 10, 2024 Subjective Feeling better today, having some abdominal pain but not as severe No nausea no vomiting Tolerated clear liquids okay last evening without pain Fevers last night in which she was given Tylenol No sweats no chills Physical Exam Constitutional: WD/WN, vitals as above cooperative and comfortable; no acute distress and not ill appearing Respiratory: normal respiratory effort; no respiratory distress and no labored breathing Gastrointestinal (Abdomen): Inspection/Auscultation: abdomen normal to inspection; abdomen not distended Percussion/Palpation: + abdomen tender (RUQ and positive Riegelwood sign) and abdomen soft; no guarding, abdomen not rigid and abdomen not firm Skin: no rashes, warm and dry no jaundice Psychiatric: Orientation: alert and oriented x 3 Results & Data Vital Signs (Past 12 Hours) Vital Signs Temp Pulse Pulse Pulse Resp BP BP 12/11/24 13:15 37.4 C 66 16 125/67 12/11/24 07:56 37.0 C 68 18 137/76 12/11/24 07:15 12/11/24 07:00 65 12/11/24 04:05 36.9 C 64 17 137/56 L Pulse Ox O2 Del Method 12/11/24 13:15 96 Room Air 12/11/24 07:56 93 Room Air 12/11/24 07:15 Room Air 12/11/24 07:00 12/11/24 04:05 96 Room Air Laboratory Results 12/11/24 12/11/24 12/11/24 Range/Units 13:08 08:14 07:35 WBC 16.87 H (4.8-10.8) K/ul RBC 3.16 L (4.20-5.40) M/uL Hgb 8.9 L (12.0-16.0) g/dl Hct 26.9 L (37.0-47.0) % MCV 85.1 (80.0-100.0) fL MCH 28.2 (25.0-34.0) pg MCHC 33.1 (32.0-36.0) g/dL RDW Std Deviation 39.3 (36.4-46.3) fL RDW Coeff of Sadia 12.7 (11.5-14.5) % Plt Count 252 (130-400) K/uL MPV 9.6 (9.4-12.4) fL Sodium 131 L (136-145) mmol/L Potassium 4.2 (3.5-5.1) mmol/L Chloride 97 L (98-107) mmol/L Carbon Dioxide 29 (21-32) mmol/L Anion Gap 5 (3-11) BUN 18 (6-23) mg/dl Creatinine 1.51 H (0.6-1.2) mg/dl Est Cr Clr Drug Dosing 26.8 ml/min eGFR 35.39 BUN/Creatinine Ratio 11.9 (10-20) Glucose 159 H (70-99(Fasting)) mg/dl POC Glucose 142 H 162 H (70-99) mg/dl Calcium 9.1 (8.6-10.3) mg/dl Phosphorus 1.9 L (2.5-4.9) mg/dl Magnesium 1.8 (1.7-2.4) mg/dl Iron (35-150) mcg/dl TIBC (250-450) mcg/dl Transferrin (200-360) mg/dl Transferrin % Sat (15-50) % Total Bilirubin 0.7 (0.2-1.0) mg/dl Direct Bilirubin 0.2 (0-0.2) mg/dl AST 26 (13-39) U/L ALT 24 (7-52) U/L Alkaline Phosphatase 49 (34-104) U/L Troponin I High Sens (0-14) pg/ml Total Protein 6.4 (6.0-8.3) gm/dl Albumin 3.3 L (3.4-5.0) gm/dl Globulin (2.5-4.0) gm/dl Albumin/Globulin Ratio (0.9-2) 12/10/24 12/10/24 12/10/24 Range/Units 20:19 16:57 16:48 WBC (4.8-10.8) K/ul RBC (4.20-5.40) M/uL Hgb (12.0-16.0) g/dl Hct (37.0-47.0) % MCV (80.0-100.0) fL MCH (25.0-34.0) pg MCHC (32.0-36.0) g/dL RDW Std Deviation (36.4-46.3) fL RDW Coeff of Sadia (11.5-14.5) % Plt Count (130-400) K/uL MPV (9.4-12.4) fL Sodium 129 L (136-145) mmol/L Potassium 3.7 (3.5-5.1) mmol/L Chloride 95 L (98-107) mmol/L Carbon Dioxide 29 (21-32) mmol/L Anion Gap 5 (3-11) BUN 24 H (6-23) mg/dl Creatinine 1.57 H (0.6-1.2) mg/dl Est Cr Clr Drug Dosing 26.2 ml/min eGFR 33.77 BUN/Creatinine Ratio 15.3 (10-20) Glucose 136 H (70-99(Fasting)) mg/dl POC Glucose 207 H 138 H (70-99) mg/dl Calcium 8.7 (8.6-10.3) mg/dl Phosphorus (2.5-4.9) mg/dl Magnesium (1.7-2.4) mg/dl Iron (35-150) mcg/dl TIBC (250-450) mcg/dl Transferrin (200-360) mg/dl Transferrin % Sat (15-50) % Total Bilirubin 0.6 (0.2-1.0) mg/dl Direct Bilirubin (0-0.2) mg/dl AST 29 (13-39) U/L ALT 26 (7-52) U/L Alkaline Phosphatase 54 (34-104) U/L Troponin I High Sens (0-14) pg/ml Total Protein 6.9 (6.0-8.3) gm/dl Albumin 3.6 (3.4-5.0) gm/dl Globulin 3.3 (2.5-4.0) gm/dl Albumin/Globulin Ratio 1.1 (0.9-2) 12/10/24 12/10/24 Range/Units 14:01 13:44 WBC (4.8-10.8) K/ul RBC (4.20-5.40) M/uL Hgb (12.0-16.0) g/dl Hct (37.0-47.0) % MCV (80.0-100.0) fL MCH (25.0-34.0) pg MCHC (32.0-36.0) g/dL RDW Std Deviation (36.4-46.3) fL RDW Coeff of Sadia (11.5-14.5) % Plt Count (130-400) K/uL MPV (9.4-12.4) fL Sodium (136-145) mmol/L Potassium (3.5-5.1) mmol/L Chloride (98-107) mmol/L Carbon Dioxide (21-32) mmol/L Anion Gap (3-11) BUN (6-23) mg/dl Creatinine (0.6-1.2) mg/dl Est Cr Clr Drug Dosing ml/min eGFR BUN/Creatinine Ratio (10-20) Glucose (70-99(Fasting)) mg/dl POC Glucose 147 H (70-99) mg/dl Calcium (8.6-10.3) mg/dl Phosphorus (2.5-4.9) mg/dl Magnesium (1.7-2.4) mg/dl Iron 21 L (35-150) mcg/dl TIBC 349 (250-450) mcg/dl Transferrin 249 (200-360) mg/dl Transferrin % Sat 6 L (15-50) % Total Bilirubin (0.2-1.0) mg/dl Direct Bilirubin (0-0.2) mg/dl AST (13-39) U/L ALT (7-52) U/L Alkaline Phosphatase (34-104) U/L Troponin I High Sens 60.1 H* D (0-14) pg/ml Total Protein (6.0-8.3) gm/dl Albumin (3.4-5.0) gm/dl Globulin (2.5-4.0) gm/dl Albumin/Globulin Ratio (0.9-2)
[2024-12-11] MEDS: PIPERACILLIN/TAZOBACTAM 4.5 GM/100 ML BAG IV ONE (13:59)
--- NOTE | 2024-12-11 14:50 | Electrocardiogram Report ---
Test Reason : Blood Pressure : */* mmHG Vent. Rate : 68 BPM Atrial Rate : 68 BPM P-R Int : 160 ms QRS Dur : 128 ms QT Int : 438 ms P-R-T Axes : 53 3 57 degrees QTcB Int : 465 ms Normal sinus rhythm Left bundle branch block Abnormal ECG When compared with ECG of 11-Dec-2024 05:58, No significant change was found Confirmed by Reji Freeman [id number]) on 12/11/2024 2:50:25 PM Referred By: REFERRED SELF Confirmed By: Reji Freeman
--- NOTE | 2024-12-11 15:44 | Hospitalist Progress Note ---
Date of Service December 11, 2024 Assessment & Plan (1) Viral gastroenteritis: (2) Facial paresthesia: (3) Demand ischemia: (4) Symptomatic cholelithiasis: (5) Hypomagnesemia: (6) Chronic iron deficiency anemia: (7) Hypokalemia: (8) Prolonged QT interval: Plan Ms. Montesinos is a 79-year-old female with past med history significant for type 2 diabetes, dyslipidemia, left adrenal adenoma, intraductal papillary mucinous neoplasm, hypertension, diverticulosis colon, Damon, GERD, CKD stage III, osteoporosis, osteoarthritis, history of glaucoma, lives at home with her admitted for acute cholecystitis. Patient with perioral and left arm parasthesias. Patient with history of LBBB documented as resolved in 2019 per op review and recent stress test in 2023 which was negative. Troponin likely demand iso illness, but given reported symptoms and LBBB noted will discuss preop clearance with Cards with anticipated procedure tomorrow 12/12 Repeat trop ordered at this time #Acute cholecystitis positive HIDA scan Resume Zosyn (antibiotics discontinued on admission) CLD, NPO at midnight continue PPI BID #LUE, perioral paresthesias resolved CTM electrolytes CT head stable #Elevated troponin, likely demand iso acute illness #Chronic conduction delay LBBB, noted in 2017 #CAD intermittent interventricular conduction delay on EKG ECHO 60-65% 12/2024 stress test in 2023: Normal myocardial perfusion imaging with apical thinning. RCRI 2 points 2/2 Ischemic disease and intraperitoneal procedure Continue Metorpolol perioperatively Continue statin, ASA follows Dr Fuchs Trend trop Given ? about left arm paresthesias, LBBB, will consult cardiology to ensure clearance #Abnormal electrolytes 2/2 acute illness and thiazide Trend and replace prn #Hypertension - hold irbesartan 300mg daily, chlorthalidone 25mg daily iso electrolyte abnormalities and relative hypotension #DMTII SSI #QTC prolonged avoid prolonging agents #NANCY on CKDIII stable, trend BMP avoid nephrotoxic agents DVT SCDS Admission and Anticipated Discharge Date Admission Date: December 10, 2024 Subjective Reports some abdominal pain from earlier, but nothing at time of exam denies vomiting reports understanding that her HIDA scan was positive and she will go for kala tomorrow Denies any chest pain, sob, or other acute concerns Physical Exam Constitutional: WD/WN, vitals as above Respiratory: normal respiratory effort, lungs clear to auscultation Cardiovascular: RRR, no murmur, no edema Gastrointestinal (Abdomen): CORINA tenderness to palpation Results & Data Results & Data Vital Signs (Past 12 Hours) Vital Signs Temp Pulse Pulse Pulse Resp BP BP 12/11/24 15:12 37.0 C 69 18 114/63 12/11/24 14:48 73 12/11/24 13:15 37.4 C 66 16 125/67 12/11/24 07:56 37.0 C 68 18 137/76 12/11/24 07:15 12/11/24 07:00 65 12/11/24 04:05 36.9 C 64 17 137/56 L Pulse Ox O2 Del Method 12/11/24 15:12 95 Room Air 12/11/24 14:48 12/11/24 13:15 96 Room Air 12/11/24 07:56 93 Room Air 12/11/24 07:15 Room Air 12/11/24 07:00 12/11/24 04:05 96 Room Air Laboratory Results Short CBC 12/11/24 Range/Units 07:35 WBC 16.87 H (4.8-10.8) K/ul Hgb 8.9 L (12.0-16.0) g/dl Hct 26.9 L (37.0-47.0) % Plt Count 252 (130-400) K/uL BMP 12/10/24 12/11/24 16:57 07:35 Sodium 129 L 131 L Potassium 3.7 4.2 Chloride 95 L 97 L Carbon Dioxide 29 29 BUN 24 H 18 Creatinine 1.57 H 1.51 H Glucose 136 H 159 H Calcium 8.7 9.1 Liver Function 12/10/24 12/11/24 Range/Units 16:57 07:35 Total Bilirubin 0.6 0.7 (0.2-1.0) mg/dl Direct Bilirubin 0.2 (0-0.2) mg/dl AST 29 26 (13-39) U/L ALT 26 24 (7-52) U/L Alkaline Phosphatase 54 49 (34-104) U/L Albumin 3.6 3.3 L (3.4-5.0) gm/dl Medications Administered Home Medications Medication Instructions Recorded Confirmed Last Taken aspirin 81 mg tablet,delayed 81 mg PO DAILY 12/10/24 12/10/24 Unknown release chlorthalidone 25 mg tablet 25 mg PO DAILY 12/10/24 12/10/24 Unknown losartan 25 mg tablet 25 mg PO DAILY 12/10/24 12/10/24 Unknown metformin 500 mg tablet 500 mg PO DAILY 12/10/24 12/10/24 Unknown metoprolol succinate 25 mg 25 mg PO DAILY 12/10/24 12/10/24 Unknown tablet,extended release 24 hr omeprazole 20 mg capsule,delayed 20 mg PO DAILY 12/10/24 12/10/24 Unknown release rosuvastatin 40 mg tablet 40 mg PO DAILY 12/10/24 12/10/24 Unknown Active Medications Generic Name Dose Route Start Last Admin Trade Name Raúlq PRN Reason Stop Dose Admin Acetaminophen 650 mg 12/10/24 12:16 12/11/24 00:04 Acetaminophen 325 Mg Tab PO 01/09/25 12:15 650 mg Q4H PRN Administration Pain or Fever Aspirin 81 mg 12/10/24 09:00 12/11/24 08:53 Aspirin 81 Mg Ectab PO 01/09/25 08:59 81 mg DAILY DANIEL Administration Pantoprazole Sodium 40 mg in 10 mls @ 5 mls/min 12/10/24 21:00 12/11/24 08:52 Protonix IV 01/09/25 20:59 5 mls/min BID DANIEL Administration Insulin Aspart 0 units 12/10/24 16:30 12/11/24 13:11 Insulin Aspart Per Unit Charge SC 01/09/25 07:30 Not Given ACHS DANIEL Magnesium Oxide 400 mg 12/10/24 09:00 12/11/24 08:53 Magnesium Oxide 400 Mg Tab PO 01/09/25 08:59 400 mg BID DANIEL Administration Metoprolol Succinate 25 mg 12/10/24 09:00 12/11/24 08:53 Metoprolol Succ 25mg Ext Rel Tab PO 01/09/25 08:59 25 mg DAILY DANIEL Administration Rosuvastatin Calcium 40 mg 12/10/24 09:00 12/11/24 08:53 Rosuvastatin Calcium 20 Mg Tab PO 01/09/25 08:59 40 mg DAILY DANIEL Administration
[2024-12-11] MEDS ORDERED: POTASSIUM PHOS 3 MMOL/1 ML INFUSION IV STA (15:48)
[2024-12-11] MEDS: POTASSIUM PHOSPHATE 15 MMOL in SODIUM CHLORIDE 0.9% 250 ML IV ONE (16:30)
--- NOTE | 2024-12-11 17:08 | Cardiology Consultation ---
Date of Consultation December 11, 2024 Assessment & Plan (1) Preop cardiovascular exam: (2) Left bundle branch block: (3) Symptomatic cholelithiasis: (4) Type II diabetes mellitus: Plan 79-year-old female, diabetic admitted with biliary colic and now with evidence of bile duct obstruction with persistent white cell count elevation. Patient presented acutely ill and has received initial resuscitation with fluids and antibiotic therapies. Troponins elevated but flat in a pattern consistent with acute illness/acute renal insufficiency/demand ischemia Patient referred for preoperative evaluation. Baseline EKG chronic left bundle branch block of nearly 15 years duration. Recent stress testing negative for ischemia with echocardiograms and nuclear testing serially with preserved wall motion and LV systolic function. Functional capacity well above 5 METS without cardiac restriction. No prior history of angina, myocardial infarction, congestive heart failure, TIA or stroke, arrhythmias. Necessary surgery with symptomatic obstruction of bile duct in diabetic patient. No cardiac contraindications to surgery. Operative risk moderately increased secondary to acute presentation, elevated troponin, anemia, hyperglycemia, reduced renal function. Patient with multiple cardiovascular risk factors no manifest symptoms or cardiac dysfunction Recommendations: Proceed as surgically indicated. Patient now agreeable to glucose control in hospital with insulin Follow anemia closely History of Present Illness Reason for Consultation: Preoperative evaluation, left bundle branch block Requesting Physician: Dr. Mukherjee Attending Physician: Em Mukherjee MD History of Present Illness Patient is a 79-year-old female with ongoing prior medical concerns which include 1. Left bundle branch block, intermittent present since 2009 2. Elevated calcium score,heavy coronary calcification 3. Hypertension 4. Hyperlipidemia 5 Type 2 diabetes mellitus 6. 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 Acutely ill on presentation, 12/09/2024. Symptoms improved in hospital with fluid hydration and antibiotics. Hepatobiliary scan today consistent with bile duct obstruction. White cell count persistently elevated despite antibiotic therapy Patient referred for preoperative evaluation due to cardiovascular risk factors as noted, abnormal EKG Patient denies prior history of myocardial infarction, angina, congestive heart failure. No history of TIA or stroke. No prior history of surgical complications personally. Functional capacity well above 5 METS without difficulty. Active about home caring for her granddaughter. Fatigued at the end of the day. Recent cardiac evaluation including stress nuclear imaging negative for stress-induced ischemia. EKG consistent with prior studies with chronic left bundle branch block Allergies Allergy/AdvReac Type Severity Reaction Status Date / Time Iodinated Contrast Media Allergy Unknown (ivp dye) Verified 12/10/24 04:12 Unknown Quinolones Allergy Unknown Unknown Verified 12/10/24 04:12 Sulfa (Sulfonamide Allergy Unknown Unknown Verified 12/10/24 04:12 Antibiotics) tetracycline Allergy Unknown Unknown Verified 12/10/24 04:12 Tetracyclines Allergy Unknown Unknown Verified 12/10/24 04:12 Home Medications Medication Instructions Recorded Confirmed Type aspirin 81 mg tablet,delayed 81 mg PO DAILY 12/10/24 12/10/24 History release chlorthalidone 25 mg tablet 25 mg PO DAILY 12/10/24 12/10/24 History losartan 25 mg tablet 25 mg PO DAILY 12/10/24 12/10/24 History metformin 500 mg tablet 500 mg PO DAILY 12/10/24 12/10/24 History metoprolol succinate 25 mg 25 mg PO DAILY 12/10/24 12/10/24 History tablet,extended release 24 hr omeprazole 20 mg capsule,delayed 20 mg PO DAILY 12/10/24 12/10/24 History release rosuvastatin 40 mg tablet 40 mg PO DAILY 12/10/24 12/10/24 History Patient History Social History Smoking Status: Never smoker Hx Alcohol Use: No Hx Substance Use: No Preferred Language: Nepali Communication Ability: Effective Butcher Apprentice Required: No Beliefs That Will Affect Care: None Current Living Situation: Spouse Feels Safe at Home: Yes Review of Systems Review of Systems: All systems reviewed & are unremarkable except as noted in HPI & below Physical Exam Constitutional: + ill appearing; no acute distress Pale Eyes: PERRL, conjunctivae normal, anicteric sclerae ENMT: external ear and nose normal, oropharynx normal Neck: trachea midline, no thyromegaly Respiratory: normal respiratory effort, lungs clear to auscultation Cardiovascular: RRR, no murmur, no edema Gastrointestinal (Abdomen): Percussion/Palpation: + abdomen tender Results & Data Vital Signs (Past 12 Hours) Vital Signs Temp Pulse Pulse Pulse Resp BP BP 12/11/24 15:12 37.0 C 69 18 114/63 12/11/24 14:48 73 12/11/24 13:15 37.4 C 66 16 125/67 12/11/24 07:56 37.0 C 68 18 137/76 12/11/24 07:15 12/11/24 07:00 65 Pulse Ox O2 Del Method 12/11/24 15:12 95 Room Air 12/11/24 14:48 12/11/24 13:15 96 Room Air 12/11/24 07:56 93 Room Air 12/11/24 07:15 Room Air 12/11/24 07:00 Laboratory Results Laboratory Results - last 24 hr 12/10/24 12/10/24 12/11/24 16:57 20:19 07:35 WBC 16.87 H RBC 3.16 L Hgb 8.9 L Hct 26.9 L MCV 85.1 MCH 28.2 MCHC 33.1 RDW Std Deviation 39.3 RDW Coeff of Sadia 12.7 Plt Count 252 MPV 9.6 Sodium 129 L 131 L Potassium 3.7 4.2 Chloride 95 L 97 L Carbon Dioxide 29 29 Anion Gap 5 5 BUN 24 H 18 Creatinine 1.57 H 1.51 H Est Cr Clr Drug Dosing 26.2 26.8 eGFR 33.77 35.39 BUN/Creatinine Ratio 15.3 11.9 Glucose 136 H 159 H POC Glucose 207 H Calcium 8.7 9.1 Phosphorus 1.9 L Magnesium 1.8 Total Bilirubin 0.6 0.7 Direct Bilirubin 0.2 AST 29 26 ALT 26 24 Alkaline Phosphatase 54 49 Troponin I High Sens Total Protein 6.9 6.4 Albumin 3.6 3.3 L Globulin 3.3 Albumin/Globulin Ratio 1.1 12/11/24 12/11/24 12/11/24 08:14 13:08 15:45 WBC RBC Hgb Hct MCV MCH MCHC RDW Std Deviation RDW Coeff of Sadia Plt Count MPV Sodium Potassium Chloride Carbon Dioxide Anion Gap BUN Creatinine Est Cr Clr Drug Dosing eGFR BUN/Creatinine Ratio Glucose POC Glucose 162 H 142 H Calcium Phosphorus Magnesium Total Bilirubin Direct Bilirubin AST ALT Alkaline Phosphatase Troponin I High Sens 34.6 H D Total Protein Albumin Globulin Albumin/Globulin Ratio 12/11/24 17:05 WBC RBC Hgb Hct MCV MCH MCHC RDW Std Deviation RDW Coeff of Sadia Plt Count MPV Sodium Potassium Chloride Carbon Dioxide Anion Gap BUN Creatinine Est Cr Clr Drug Dosing eGFR BUN/Creatinine Ratio Glucose POC Glucose 123 H Calcium Phosphorus Magnesium Total Bilirubin Direct Bilirubin AST ALT Alkaline Phosphatase Troponin I High Sens Total Protein Albumin Globulin Albumin/Globulin Ratio Diagnostic Findings Myocardial stress nuclear imaging 08/30/2024 IMPRESSION: Normal myocardial perfusion imaging with apical thinning. This report reflects the joint interpretation of the departments of Cardiology and Radiology. PERFUSION DATA: There are no fixed or reversible defects noted. CAVITY SIZE: 1. The left ventricular size was normal. 2. Right ventricular enlargement was absent. 3. Physiologic apical thinning is present, representing a variant of normal. GATED SPECT WALL MOTION DATA: 1. Gated wall motion was normal. 2. Qualitative assessment showed left ventricular overall systolic function to be normal. 3. Left ventricular ejection fraction was calculated at >70% and felt to be of good reliability. Echocardiogram 12/10/2024 Normal left or size with moderate left hypertrophy and normal overall ejection fraction EF 60-65% There is mild dyssynergy of the septum consistent with left bundle branch block otherwise no wall motion abnormalities Grade 1 diastolic dysfunction No significant valvular disease
[2024-12-11] MEDS: PIPERACILLIN/TAZOBACTAM 4.5 GM/100 ML BAG IV SCH (19:36)
[2024-12-12 07:03] LABS: Basophils # (auto) 0.07 K/uL (0.00-0.20); Basophils % (auto) 0.5 %; Eosinophils # (auto) 0.44 K/uL (0.00-0.50); Eosinophils % (auto) 3.1 %; Hematocrit (blood only) 26.8 % (37.0-47.0); Hemoglobin 8.8 g/dl (12.0-16.0); Immature Granulocytes # (auto) 0.07 K/uL (0.01-0.20); Immature Granulocytes % (auto) 0.5 %; Lymphocytes # (auto) 2.46 K/uL (1.20-3.40); Lymphocytes % (auto) 17.4 %; Mean Corpuscular Hemoglobin 27.2 pg (25.0-34.0); Mean Corpuscular Hgb Conc 32.8 g/dL (32.0-36.0); Mean Platelet Volume 9.5 fL (9.4-12.4); Monocytes % (auto) 7.8 %; Neutrophils # (auto) 9.97 K/uL (1.40-6.50); Neutrophils % (auto) 70.7 %; Platelet Count 261 K/uL (130-400); RDW Coefficient of Variation 12.7 % (11.5-14.5); RDW Standard Deviation 38.7 fL (36.4-46.3); Red Blood Count 3.23 M/uL (4.20-5.40); White Blood Count 14.11 K/ul (4.8-10.8)
[2024-12-12 07:27] LABS: Albumin Level 3.3 gm/dl (3.4-5.0); BUN Creatinine Ratio 10.1 (10-20); Bilirubin,Total 0.8 mg/dl (0.2-1.0); Calcium 9.1 mg/dl (8.6-10.3); Chol HDL Ratio 2.1 (0-5); Creatinine Clr Calc Pharmacy 22.6 ml/min; Globulin 3.3 gm/dl (2.5-4.0); Magnesium 1.8 mg/dl (1.7-2.4); Phosphorus 2.5 mg/dl (2.5-4.9); Potassium 3.3 mmol/L (3.5-5.1); Total Protein 6.6 gm/dl (6.0-8.3)
[2024-12-12 09:56] LABS: Estimated Average Glucose 143 mg/dl; Hemoglobin A1C 6.6 % (4.5-5.6)
[2024-12-12] MEDS ORDERED: PROPOFOL IV EMULSION 10 MG/ML 20 ML VIAL IV ONE (10:07)
[2024-12-12] MEDS ORDERED: LIDOCAINE 2% 2 ML VIAL/AMP(20MG/ML) INFIL ONE (10:07)
[2024-12-12] MEDS ORDERED: ONDANSETRON INJ 2 MG/ML 2 ML VIAL ONE (10:07)
[2024-12-12] MEDS ORDERED: fentaNYL citrate PF 100 MCG/2 ML VIAL ONE (10:08)
[2024-12-12] MEDS ORDERED: ROCURONIUM BROMIDE 10 MG/ML 5 ML VIAL IV ONE (10:09)
--- NOTE | 2024-12-12 10:19 | Anesthesiology Consultation ---
Date of Service December 12, 2024 Assessment & Plan Chart Review Chart Review: Acceptable Risk for Surgery and Patient NOT seen in Pre Admission Testing History Surgery Operation Date: 12/12/24 12:25 Proposed Procedures p Laparoscopic Cholecystectomy - Yrn Jonas MD Height/Weight Height: 5 ft Weight: 67.2 kg Allergies Allergy/AdvReac Type Severity Reaction Status Date / Time Iodinated Contrast Media Allergy Unknown (ivp dye) Verified 12/10/24 04:12 Unknown Quinolones Allergy Unknown Unknown Verified 12/10/24 04:12 Sulfa (Sulfonamide Allergy Unknown Unknown Verified 12/10/24 04:12 Antibiotics) tetracycline Allergy Unknown Unknown Verified 12/10/24 04:12 Tetracyclines Allergy Unknown Unknown Verified 12/10/24 04:12 Medications Home Medications Medication Instructions Recorded Confirmed Last Taken aspirin 81 mg tablet,delayed 81 mg PO DAILY 12/10/24 12/10/24 Unknown release chlorthalidone 25 mg tablet 25 mg PO DAILY 12/10/24 12/10/24 Unknown losartan 25 mg tablet 25 mg PO DAILY 12/10/24 12/10/24 Unknown metformin 500 mg tablet 500 mg PO DAILY 12/10/24 12/10/24 Unknown metoprolol succinate 25 mg 25 mg PO DAILY 12/10/24 12/10/24 Unknown tablet,extended release 24 hr omeprazole 20 mg capsule,delayed 20 mg PO DAILY 12/10/24 12/10/24 Unknown release rosuvastatin 40 mg tablet 40 mg PO DAILY 12/10/24 12/10/24 Unknown Active Medications Generic Name Dose Route Start Last Admin Trade Name Freq PRN Reason Stop Dose Admin Acetaminophen 650 mg 12/10/24 12:16 12/11/24 00:04 Acetaminophen 325 Mg Tab PO 01/09/25 12:15 650 mg Q4H PRN Administration Pain or Fever Aspirin 81 mg 12/10/24 09:00 12/11/24 08:53 Aspirin 81 Mg Ectab PO 01/09/25 08:59 81 mg DAILY DANIEL Administration Pantoprazole Sodium 40 mg in 10 mls @ 5 mls/min 12/10/24 21:00 12/11/24 20:17 Protonix IV 01/09/25 20:59 5 mls/min BID DANIEL Administration Piperacillin Sod/Tazobactam Sod 4.5 gm in 100 mls @ 25 mls/hr 12/11/24 19:00 12/12/24 07:45 Zosyn IV 12/21/24 18:59 Infused Q8H [facility] Infusion Protocol Insulin Aspart 0 units 12/10/24 16:30 12/12/24 08:22 Insulin Aspart Per Unit Charge SC 01/09/25 07:30 Not Given ACHS DANIEL Magnesium Oxide 400 mg 12/10/24 09:00 12/11/24 20:16 Magnesium Oxide 400 Mg Tab PO 01/09/25 08:59 400 mg BID DANIEL Administration Metoprolol Succinate 25 mg 12/10/24 09:00 12/11/24 08:53 Metoprolol Succ 25mg Ext Rel Tab PO 01/09/25 08:59 25 mg DAILY DANIEL Administration Rosuvastatin Calcium 40 mg 12/10/24 09:00 12/11/24 08:53 Rosuvastatin Calcium 20 Mg Tab PO 01/09/25 08:59 40 mg DAILY DANIEL Administration NPO Date Last Intake of Fluids: 12/11/24 Time Last Intake of Fluids: 23:00 Date Last Intake of Solids: 12/11/24 Time Last Intake of Solids: 23:00 Social History Smoking Status: Never smoker Hx Alcohol Use: No Hx Substance Use: No Physical Exam Vital Signs Last Vital Signs Temp 37 C 12/12/24 09:44 Pulse 72 12/12/24 09:44 Resp 20 12/12/24 09:44 BP 134/62 12/12/24 09:44 Pulse Ox 925 H 12/12/24 09:44 O2 Del Method Room Air 12/12/24 09:44 O2 Flow Rate 2 12/10/24 19:59 Testing Laboratory Results 12/12/24 06:42 12/12/24 06:42 Hemoglobin A1c 6.6 % (4.5-5.6) H 12/12/24 06:42 Urine Color Yellow 12/10/24 03:44 Urine Appearance Clear (Clear) 12/10/24 03:44 Urine pH 8.0 (4.5-7.5) H 12/10/24 03:44 Ur Specific [place] 1.017 (1.000-1.030) 12/10/24 03:44 Urine Protein 2+ (Negative) H 12/10/24 03:44 Urine Glucose (UA) Trace (Negative) H 12/10/24 03:44 Urine Ketones Trace (Negative) H 12/10/24 03:44 Urine Nitrite Negative (Negative) 12/10/24 03:44 Ur Leukocyte Esterase 1+ (Negative) H 12/10/24 03:44 Urine WBC (Auto) 11-20 /hpf (0-5) H 12/10/24 03:44 Urine RBC (Auto) 0-2 /hpf (0-2) 12/10/24 03:44 U Hyaline Cast (Auto) 0-2 /lpf (0-2) 12/10/24 03:44 U Epithel Cells (Auto) 0-2 /hpf (0-2) 12/10/24 03:44 Urine Bacteria (Auto) None Seen (None Seen) 12/10/24 03:44 12/10/24 03:44 Urine Culture - Final Urine,Clean Catch More than three types of organisms present, all moderate counts mixed probable skin roly. No further identifications or sensitivities to follow. 12/12/24 09:53 POC Glucose 140 H
--- NOTE | 2024-12-12 10:29 | History & Physical Bridge Note ---
Date of Service December 12, 2024 History & Physical Bridge Note I have examined the patient, reviewed the History & Physical and in the interval since the performance of the History & Physical I have noted the following changes of clinical significance: no changes noted
[2024-12-12] MEDS ORDERED: ATROPINE SULFATE 0.1 MG/ML 10ML SYR IV PRN (10:32)
[2024-12-12] MEDS ORDERED: ONDANSETRON INJ 2 MG/ML 2 ML VIAL IV PRN (10:32)
[2024-12-12] MEDS ORDERED: fentaNYL citrate PF 100 MCG/2 ML VIAL IV PRN (10:32)
[2024-12-12] MEDS ORDERED: ePHEDrine sulfate 50 MG/ML AMP IV PRN (10:32)
[2024-12-12] MEDS ORDERED: HYDROmorphone INJ 1 MG/ML SYRINGE IV PRN (10:32)
--- NOTE | 2024-12-12 10:34 | Surgery Progress Note ---
Date of Service December 12, 2024 Assessment & Plan (1) RUQ pain: (2) Nausea and vomiting: Plan continued pain. discussed risks/benefits of laparoscopic kala. agreeable to proceed. consent obtained Admission and Anticipated Discharge Date Admission Date: December 10, 2024 Subjective feeling better no nausea vomiting; still with RUQ abdominal pain Physical Exam Physical Exam: NAD A&Ox3 AFVSS Abd: soft mild TTP RUQ Results & Data Vital Signs (Past 12 Hours) Vital Signs Temp Pulse Pulse Pulse Resp BP BP 12/12/24 09:44 37 C 72 20 134/62 12/12/24 07:57 37.2 C 64 16 108/65 12/12/24 07:36 63 12/12/24 03:24 36.6 C 65 20 113/56 L 12/12/24 00:04 37.0 C 72 20 116/56 L Pulse Ox O2 Del Method 12/12/24 09:44 925 H Room Air 12/12/24 07:57 96 Nasal Cannula 12/12/24 07:36 12/12/24 03:24 95 Room Air 12/12/24 00:04 97 Room Air Laboratory Results 12/12/24 12/12/24 12/11/24 Range/Units 09:53 06:42 20:06 WBC 14.11 H (4.8-10.8) K/ul RBC 3.23 L (4.20-5.40) M/uL Hgb 8.8 L (12.0-16.0) g/dl Hct 26.8 L (37.0-47.0) % MCV 83.0 (80.0-100.0) fL MCH 27.2 (25.0-34.0) pg MCHC 32.8 (32.0-36.0) g/dL RDW Std Deviation 38.7 (36.4-46.3) fL RDW Coeff of Sadia 12.7 (11.5-14.5) % Plt Count 261 (130-400) K/uL MPV 9.5 (9.4-12.4) fL Immature Gran % (Auto) 0.5 % Neut % (Auto) 70.7 % Lymph % (Auto) 17.4 % [place] % (Auto) 7.8 % Eos % (Auto) 3.1 % Baso % (Auto) 0.5 % Neut # (Auto) 9.97 H (1.40-6.50) K/uL Lymph # (Auto) 2.46 (1.20-3.40) K/uL [place] # (Auto) 1.10 H (0.11-0.59) K/uL Eos # (Auto) 0.44 (0.00-0.50) K/uL Baso # (Auto) 0.07 (0.00-0.20) K/uL Immature Gran # (Auto) 0.07 (0.01-0.20) K/uL Sodium 132 L (136-145) mmol/L Potassium 3.3 L D (3.5-5.1) mmol/L Chloride 97 L (98-107) mmol/L Carbon Dioxide 27 (21-32) mmol/L Anion Gap 8 (3-11) BUN 18 (6-23) mg/dl Creatinine 1.78 H (0.6-1.2) mg/dl Est Cr Clr Drug Dosing 22.6 ml/min eGFR 29.05 BUN/Creatinine Ratio 10.1 (10-20) Glucose 131 H (70-99(Fasting)) mg/dl POC Glucose 140 H 166 H (70-99) mg/dl Estimat Average Glucose 143 mg/dl Hemoglobin A1c 6.6 H (4.5-5.6) % Osmolality 275 L (280-300) mOsm/kg Calcium 9.1 (8.6-10.3) mg/dl Phosphorus 2.5 (2.5-4.9) mg/dl Magnesium 1.8 (1.7-2.4) mg/dl Total Bilirubin 0.8 (0.2-1.0) mg/dl AST 26 (13-39) U/L ALT 23 (7-52) U/L Alkaline Phosphatase 50 (34-104) U/L Troponin I High Sens (0-14) pg/ml Total Protein 6.6 (6.0-8.3) gm/dl Albumin 3.3 L (3.4-5.0) gm/dl Globulin 3.3 (2.5-4.0) gm/dl Albumin/Globulin Ratio 1.0 (0.9-2) Triglycerides 69 (0-150) mg/dl Cholesterol 61 (0-200) mg/dl LDL Cholesterol, Calc 18 mg/dl VLDL Cholesterol, Calc 14 (0-30) mg/dl HDL Cholesterol 29 mg/dl Cholesterol/HDL Ratio 2.1 (0-5) 12/11/24 12/11/24 12/11/24 Range/Units 17:05 15:45 13:08 WBC (4.8-10.8) K/ul RBC (4.20-5.40) M/uL Hgb (12.0-16.0) g/dl Hct (37.0-47.0) % MCV (80.0-100.0) fL MCH (25.0-34.0) pg MCHC (32.0-36.0) g/dL RDW Std Deviation (36.4-46.3) fL RDW Coeff of Sadia (11.5-14.5) % Plt Count (130-400) K/uL MPV (9.4-12.4) fL Immature Gran % (Auto) % Neut % (Auto) % Lymph % (Auto) % [place] % (Auto) % Eos % (Auto) % Baso % (Auto) % Neut # (Auto) (1.40-6.50) K/uL Lymph # (Auto) (1.20-3.40) K/uL [place] # (Auto) (0.11-0.59) K/uL Eos # (Auto) (0.00-0.50) K/uL Baso # (Auto) (0.00-0.20) K/uL Immature Gran # (Auto) (0.01-0.20) K/uL Sodium (136-145) mmol/L Potassium (3.5-5.1) mmol/L Chloride (98-107) mmol/L Carbon Dioxide (21-32) mmol/L Anion Gap (3-11) BUN (6-23) mg/dl Creatinine (0.6-1.2) mg/dl Est Cr Clr Drug Dosing ml/min eGFR BUN/Creatinine Ratio (10-20) Glucose (70-99(Fasting)) mg/dl POC Glucose 123 H 142 H (70-99) mg/dl Estimat Average Glucose mg/dl Hemoglobin A1c (4.5-5.6) % Osmolality (280-300) mOsm/kg Calcium (8.6-10.3) mg/dl Phosphorus (2.5-4.9) mg/dl Magnesium (1.7-2.4) mg/dl Total Bilirubin (0.2-1.0) mg/dl AST (13-39) U/L ALT (7-52) U/L Alkaline Phosphatase (34-104) U/L Troponin I High Sens 34.6 H D (0-14) pg/ml Total Protein (6.0-8.3) gm/dl Albumin (3.4-5.0) gm/dl Globulin (2.5-4.0) gm/dl Albumin/Globulin Ratio (0.9-2) Triglycerides (0-150) mg/dl Cholesterol (0-200) mg/dl LDL Cholesterol, Calc mg/dl VLDL Cholesterol, Calc (0-30) mg/dl HDL Cholesterol mg/dl Cholesterol/HDL Ratio (0-5)
[2024-12-12] MEDS ORDERED: DEXAMETHASONE SOD INJ 4 MG/ML VIAL ONE (11:01)
[2024-12-12] MEDS ORDERED: SUGAMMADEX SODIUM 200 MG/2 ML VIAL IV ONE (11:19)
[2024-12-12] MEDS ORDERED: KETOROLAC 30 MG/ML VIAL ONE (11:27)
[2024-12-12] MEDS: BUPIVACAINE/EPINEPHRINE 0.25% 1:200,000 30 ML VIAL ONE (11:32)
--- NOTE | 2024-12-12 11:37 | Post Operative Brief Note ---
Immediate Post Op Note Date of Surgery December 12, 2024 Pre & Post Diagnosis Operation Date: 12/12/24 12:25 Pre-Op Diagnosis: Right Upper Quadrant pain; Nausea and vomiting Post-Op Diagnosis: Right Upper Quadrant pain; Nausea and vomiting I identified the patient and participated in the time-out.: Yes Procedure Operation Date: 12/12/24 12:25 Actual Procedures p Laparoscopic Cholecystectomy(Not Applicable) - Yrn Jonas MD Surgeon Yrn Jonas MD Pulper Operator JOHN Fairchild assisted with tissue retraction, camera op, closure Estimated Blood Loss 5 Findings Consistent with Post-Op Diagnosis acute gangrenous cholecystitis
--- NOTE | 2024-12-12 11:42 | Operative Report ---
Post Operative Report Pre & Post Diagnosis Operation Date: 12/12/24 12:25 Pre-Op Diagnosis: Right Upper Quadrant pain; Nausea and vomiting Post-Op Diagnosis: Right Upper Quadrant pain; Nausea and vomiting I identified the patient and participated in the time-out.: Yes Procedure Operation Date: 12/12/24 12:25 Actual Procedures p Laparoscopic Cholecystectomy(Not Applicable) - Yrn Jonas MD Surgeon Yrn Jonas MD Marketing Pr Intern JOHN Fairchild assisted with tissue retraction, camera op, closure Estimated Blood Loss 5 Findings Consistent with Post-Op Diagnosis acute gangrenous cholecystitis Specimens gallbladder Drains none Anesthesia Type General Complications none Description of Procedure the patient was taken to the operating room, and placed supine on the operating table. A timeout was performed, perioperative antibiotics were administered, SCD boots were placed. After adequate anesthesia and analgesia was obtained, the abdomen was prepped and draped in the normal sterile fashion. Local anesthetic was injected into and around the proposed incision sites. An incision was made with a 15 blade scalpel in the supraumbilical region and carried down to the level of the fascia. The fascia was grasped with a trach hook, and a varies needle was used to enter the abdominal cavity. The abdomen was insufflated to a pressure of 15 mmHg, and a 11 mm trocar was placed in this location. A 10 mm, 30 degree laparoscope was placed into the abdominal cavity, and the abdomen was surveyed. the gallbladder was distended and gangrenous. Two 5 mm trochars were placed along the right costal margin, and one 5 mm trocar was placed in the subxiphoid region under direct visualization. The gallbladder was drained with and 18-gauge aspiration needle. The gallbladder was grasped and retracted cephalad and laterally, exposing the triangle of [place]. Dissection began in the triangle with a combination of blunt dissection with the [place] dissector, and judicious use of the hook cautery. The cystic duct and cystic artery were dissected free circumferentially, and a critical view of safety was obtained. The cystic duct and cystic artery were clipped and transected, and the gallbladder was removed from the gallbladder fossa with the hook cautery. The camera was switched to a 5 mm, the gallbladder was placed in an Endo Catch bag, and removed via the supraumbilical port site. The camera was switched back to the 10 mm camera, and the abdomen was surveyed again. Hemostasis was checked and attended, and was excellent. The abdomen was copiously irrigated and suctioned free. Again hemostasis was checked and was excellent. All trochars were removed under direct visualization. The abdomen was desufflated. The fascia in the 11 mm port site was closed with a 0 Vicryl suture. The skin was closed with a running 4-0 Monocryl subcuticular stitch. Dermabond was applied. The patient tolerated the procedure without complication, and was transferred in stable condition to the PACU. All instrument, needle, and sponge counts were correct at the end of the case. my starch treating assistant was necessary throughout the procedure for tissue retraction, possible camera operation, and closure of the wounds. I understand that section 1842(b)(7)(D) of the Social Security act generally prohibits Medicare physician fee schedule payment for the services of assistants at surgery in teaching hospitals when qualified residents are available to furnish such services. I certify that the services for which payment is claimed were medically necessary and that no qualified resident was available to perform the services. I further understand that these services are subject to postpayment review by the Medicare carrier. I attest to the content of the Intraoperative Record and any orders documented therein. Any exceptions are noted below.
--- NOTE | 2024-12-12 12:13 | Anesthesiology Progress Note ---
Date of Service December 12, 2024 Anesthesia Post Procedure Vital Signs Vital Signs: Temp Pulse Pulse Pulse Pulse Resp BP 12/12/24 12:05 63 13 130/54 L 12/12/24 11:55 60 18 153/55 H 12/12/24 11:48 36.5 C 63 11 L 159/58 H 12/12/24 09:44 37 C 72 20 12/12/24 07:57 37.2 C 64 16 108/65 12/12/24 07:36 63 12/12/24 03:24 36.6 C 65 20 12/12/24 00:04 37.0 C 72 20 12/11/24 21:50 63 12/11/24 20:01 37.0 C 67 18 157/64 H 12/11/24 15:12 37.0 C 69 18 114/63 12/11/24 14:48 73 12/11/24 13:15 37.4 C 66 16 125/67 BP Pulse Ox O2 Del Method O2 Flow Rate 12/12/24 12:05 97 Room Air 12/12/24 11:55 99 Oxymask 2 12/12/24 11:48 99 Oxymask 2 12/12/24 09:44 134/62 925 H Room Air 12/12/24 07:57 96 Nasal Cannula 12/12/24 07:36 12/12/24 03:24 113/56 L 95 Room Air 12/12/24 00:04 116/56 L 97 Room Air 12/11/24 21:50 12/11/24 20:01 97 Room Air 12/11/24 15:12 95 Room Air 12/11/24 14:48 12/11/24 13:15 96 Room Air Pain Intensity Chest: Pain Intensity: 3 Transfer of Care Handoff Completed per policy Notes Mental Status: alert / awake / arousable and participated in evaluation Patient Amnestic to Procedure: Yes Nausea / Vomiting: adequately controlled Pain: adequately controlled Airway Patency, RR, SpO2: stable & adequate BP & HR: stable & adequate Hydration State: stable & adequate Anesthetic Complications: no major complications apparent and Pt Satisfied with anesthetic care
[2024-12-12] MEDS ORDERED: diphenhydrAMINE Capsule 25 MG CAP PO PRN (12:42)
[2024-12-12] MEDS ORDERED: oxyCODONE/ACETAMINOPHEN 5mg/325mg TAB PO PRN (12:42)
[2024-12-12] MEDS ORDERED: MoRPHine SULFATE 2 MG/ML CARP IV PRN (12:42)
[2024-12-12] MEDS ORDERED: KETOROLAC TROMETHAMINE 15 MG/ML VIAL IV PRN (12:46)
[2024-12-12] MEDS: POTASSIUM CHLORIDE / WTR 10 MEQ/100 ML PLCT IV SCH (12:48)
[2024-12-12] MEDS: MAGNESIUM SULFATE / D5W 1 GM/100 ML BAG IV ONE (12:49)
--- NOTE | 2024-12-12 16:26 | Hospitalist Progress Note ---
Date of Service December 12, 2024 Assessment & Plan (1) Viral gastroenteritis: (2) Facial paresthesia: (3) Demand ischemia: (4) Symptomatic cholelithiasis: (5) Hypomagnesemia: (6) Chronic iron deficiency anemia: (7) Hypokalemia: (8) Prolonged QT interval: Plan MsAnna Montesinos is a 79-year-old female with past med history significant for type 2 diabetes, dyslipidemia, left adrenal adenoma, intraductal papillary mucinous neoplasm, hypertension, diverticulosis colon, Damon, GERD, CKD stage III, osteoporosis, osteoarthritis, history of glaucoma, lives at home with her admitted for acute cholecystitis. Patient with perioral and left arm parasthesias. Ultimately, patient cleared for cholecystectomy 12/12 and doing well postoperatively #Acute cholecystitis positive HIDA scan continue Zosyn (antibiotics discontinued on admission) s/p lap kala 12/12 CLD for now per surgery PT/OT #LUE, perioral paresthesias resolved CTM electrolytes CT head stable #Elevated troponin, likely demand iso acute illness #Chronic conduction delay LBBB, noted in 2016 #CAD intermittent interventricular conduction delay on EKG ECHO 60-65% 12/2024 stress test in 2023: Normal myocardial perfusion imaging with apical thinning. RCRI 2 points 2/2 Ischemic disease and intraperitoneal procedure Continue Metorpolol perioperatively Continue statin, ASA follows Dr Fuchs continue regimen #Abnormal electrolytes 2/2 acute illness and thiazide Trend and replace prn #Hypertension - hold irbesartan 300mg daily, chlorthalidone 25mg daily iso electrolyte abnormalities and relative hypotension #DMTII SSI #QTC prolonged avoid prolonging agents #NANCY on CKDIII stable, trend BMP avoid nephrotoxic agents IV plasmalyte DVT SCDS Admission and Anticipated Discharge Date Admission Date: December 10, 2024 Subjective s/p lap kala Reports doing well overall denies any discomfort or concerns post operatively Physical Exam Constitutional: WD/WN, vitals as above Respiratory: normal respiratory effort, lungs clear to auscultation Cardiovascular: RRR, no murmur, no edema Results & Data Results & Data Vital Signs (Past 12 Hours) Vital Signs Temp Pulse Pulse Pulse Pulse Resp BP 12/12/24 16:14 36.6 C 58 L 16 126/70 12/12/24 14:59 36.8 C 68 16 104/63 12/12/24 13:12 36.5 C 66 18 111/63 12/12/24 12:42 36.5 C 68 16 131/66 12/12/24 12:15 36.7 C 62 19 140/52 L 12/12/24 12:05 63 13 130/54 L 12/12/24 11:55 60 18 153/55 H 12/12/24 11:48 36.5 C 63 11 L 159/58 H 12/12/24 09:44 37 C 72 20 12/12/24 07:57 37.2 C 64 16 108/65 12/12/24 07:36 63 BP Pulse Ox O2 Del Method O2 Flow Rate 12/12/24 16:14 95 Room Air 12/12/24 14:59 98 Room Air 12/12/24 13:12 95 Room Air 12/12/24 12:42 97 Room Air 12/12/24 12:15 96 Room Air 12/12/24 12:05 97 Room Air 12/12/24 11:55 99 Oxymask 2 12/12/24 11:48 99 Oxymask 2 12/12/24 09:44 134/62 925 H Room Air 12/12/24 07:57 96 Nasal Cannula 12/12/24 07:36 Laboratory Results Short CBC 12/12/24 Range/Units 06:42 WBC 14.11 H (4.8-10.8) K/ul Hgb 8.8 L (12.0-16.0) g/dl Hct 26.8 L (37.0-47.0) % Plt Count 261 (130-400) K/uL BMP 12/12/24 06:42 Sodium 132 L Potassium 3.3 L D Chloride 97 L Carbon Dioxide 27 BUN 18 Creatinine 1.78 H Glucose 131 H Calcium 9.1 Liver Function 12/12/24 Range/Units 06:42 Total Bilirubin 0.8 (0.2-1.0) mg/dl AST 26 (13-39) U/L ALT 23 (7-52) U/L Alkaline Phosphatase 50 (34-104) U/L Albumin 3.3 L (3.4-5.0) gm/dl Medications Administered Home Medications Medication Instructions Recorded Confirmed Last Taken aspirin 81 mg tablet,delayed 81 mg PO DAILY 12/10/24 12/10/24 Unknown release chlorthalidone 25 mg tablet 25 mg PO DAILY 12/10/24 12/10/24 Unknown losartan 25 mg tablet 25 mg PO DAILY 12/10/24 12/10/24 Unknown metformin 500 mg tablet 500 mg PO DAILY 12/10/24 12/10/24 Unknown metoprolol succinate 25 mg 25 mg PO DAILY 12/10/24 12/10/24 Unknown tablet,extended release 24 hr omeprazole 20 mg capsule,delayed 20 mg PO DAILY 12/10/24 12/10/24 Unknown release rosuvastatin 40 mg tablet 40 mg PO DAILY 12/10/24 12/10/24 Unknown Active Medications Generic Name Dose Route Start Last Admin Trade Name Freq PRN Reason Stop Dose Admin Acetaminophen 650 mg 12/10/24 12:16 12/11/24 00:04 Acetaminophen 325 Mg Tab PO 01/09/25 12:15 650 mg Q4H PRN Administration Pain or Fever Aspirin 81 mg 12/10/24 09:00 12/12/24 12:47 Aspirin 81 Mg Ectab PO 01/09/25 08:59 Not Given DAILY DANIEL Pantoprazole Sodium 40 mg in 10 mls @ 5 mls/min 12/10/24 21:00 12/12/24 12:47 Protonix IV 01/09/25 20:59 5 mls/min BID DANIEL Administration Piperacillin Sod/Tazobactam Sod 4.5 gm in 100 mls @ 25 mls/hr 12/11/24 19:00 12/12/24 16:55 Zosyn IV 12/21/24 18:59 Infused Q8H DANIEL Infusion Protocol Insulin Aspart 0 units 12/10/24 16:30 12/12/24 13:30 Insulin Aspart Per Unit Charge SC 01/09/25 07:30 Not Given ACHS DANIEL Magnesium Oxide 400 mg 12/10/24 09:00 12/12/24 12:46 Magnesium Oxide 400 Mg Tab PO 01/09/25 08:59 400 mg BID DANIEL Administration Metoprolol Succinate 25 mg 12/10/24 09:00 12/12/24 12:46 Metoprolol Succ 25mg Ext Rel Tab PO 01/09/25 08:59 25 mg DAILY DANIEL Administration Rosuvastatin Calcium 40 mg 12/10/24 09:00 12/12/24 12:45 Rosuvastatin Calcium 20 Mg Tab PO 01/09/25 08:59 40 mg DAILY DANIEL Administration
[2024-12-12] MEDS: PLASMA-LYTE A 1,000 ML IV SCH (17:52)
--- NOTE | 2024-12-13 09:16 | Surgery Progress Note ---
Date of Service December 13, 2024 Assessment & Plan (1) RUQ pain: (2) Nausea and vomiting: Plan POD # 1 s/p laparoscopic cholecystectomy avss postop pain controlled no n,v Plan: Advanced to reg, DM diet for lunch encouraged ambulation pain management as needed continue medical management likely okay for discharge tomorrow from surgical standpoint [facility] surgery covering weekend Dr. Rodriguez has seen and examined pt, agrees with above Admission and Anticipated Discharge Date Admission Date: December 10, 2024 Subjective feeling much better no n,v no chest pain or shortness of breath pain controlled ambulating to bathroom without difficulty Physical Exam Constitutional: WD/WN, vitals as above + obese, cooperative and comfortable; no acute distress and not ill appearing Respiratory: normal respiratory effort; no respiratory distress and no labored breathing Gastrointestinal (Abdomen): Inspection/Auscultation: abdomen normal to inspection and + abdominal surgical incision (c/d/i with dermabond); abdomen not distended Percussion/Palpation: + abdomen tender (at incision sites) and abdomen soft; no guarding and abdomen not rigid Skin: no rashes, warm and dry no jaundice Psychiatric: Orientation: alert and oriented x 3 Results & Data Vital Signs (Past 12 Hours) Vital Signs Temp Pulse Pulse Pulse Resp BP Pulse Ox 12/13/24 08:52 68 12/13/24 08:12 36.5 C 57 L 18 146/72 H 97 12/13/24 07:57 36.8 C 58 L 16 147/72 H 95 12/13/24 07:23 56 L 12/13/24 03:49 36.6 C 57 L 18 132/68 96 12/12/24 23:10 36.6 C 57 L 18 135/59 L 95 12/12/24 21:49 57 L O2 Del Method 12/13/24 08:52 12/13/24 08:12 Room Air 12/13/24 07:57 Room Air 12/13/24 07:23 12/13/24 03:49 Room Air 12/12/24 23:10 Room Air 12/12/24 21:49 Laboratory Results 12/13/24 12/13/24 12/12/24 Range/Units 08:06 04:15 20:07 POC Glucose 150 H 270 H (70-99) mg/dl Estimat Average Glucose mg/dl Hemoglobin A1c (4.5-5.6) % Urine Osmolality 113 L (500-800) mOsm/kg 12/12/24 12/12/24 12/12/24 Range/Units 16:47 11:50 09:53 POC Glucose 205 H 168 H 140 H (70-99) mg/dl Estimat Average Glucose mg/dl Hemoglobin A1c (4.5-5.6) % Urine Osmolality (500-800) mOsm/kg 12/12/24 Range/Units 06:42 POC Glucose (70-99) mg/dl Estimat Average Glucose 143 mg/dl Hemoglobin A1c 6.6 H (4.5-5.6) % Urine Osmolality (500-800) mOsm/kg
[2024-12-13 09:59] LABS: Basophils # (auto) 0.02 K/uL (0.00-0.20); Basophils % (auto) 0.1 %; Eosinophils # (auto) 0.01 K/uL (0.00-0.50); Eosinophils % (auto) 0.1 %; Hematocrit (blood only) 25.1 % (37.0-47.0); Hemoglobin 8.2 g/dl (12.0-16.0); Immature Granulocytes # (auto) 0.19 K/uL (0.01-0.20); Lymphocytes # (auto) 1.74 K/uL (1.20-3.40); Lymphocytes % (auto) 9.5 %; Mean Corpuscular Hemoglobin 27.2 pg (25.0-34.0); Mean Corpuscular Hgb Conc 32.7 g/dL (32.0-36.0); Mean Corpuscular Volume 83.4 fL (80.0-100.0); Mean Platelet Volume 10.2 fL (9.4-12.4); Monocytes # (auto) 0.55 K/uL (0.11-0.59); Neutrophils # (auto) 15.72 K/uL (1.40-6.50); Neutrophils % (auto) 86.3 %; Platelet Count 249 K/uL (130-400); RDW Coefficient of Variation 12.4 % (11.5-14.5); RDW Standard Deviation 37.7 fL (36.4-46.3); Red Blood Count 3.01 M/uL (4.20-5.40); White Blood Count 18.23 K/ul (4.8-10.8)
[2024-12-13 10:29] LABS: Albumin Level 3.3 gm/dl (3.4-5.0); BUN Creatinine Ratio 8.9 (10-20); Bilirubin,Total 0.6 mg/dl (0.2-1.0); Calcium 8.4 mg/dl (8.6-10.3); Creatinine Clr Calc Pharmacy 12.9 ml/min; Globulin 3.2 gm/dl (2.5-4.0); Potassium 4.1 mmol/L (3.5-5.1); Total Protein 6.5 gm/dl (6.0-8.3)
--- NOTE | 2024-12-13 10:37 | Cardiology Progress Note ---
Date of Service December 13, 2024 Assessment & Plan (1) Preop cardiovascular exam: (2) Left bundle branch block: (3) Symptomatic cholelithiasis: (4) Type II diabetes mellitus: Plan 79-year-old female, diabetic admitted with biliary colic and now with evidence of bile duct obstruction with persistent white cell count elevation. Patient presented acutely ill and has received initial resuscitation with fluids and antibiotic therapies. Troponins elevated but flat in a pattern consistent with acute illness/acute renal insufficiency/demand ischemia Patient referred for preoperative evaluation. Baseline EKG chronic left bundle branch block of nearly 15 years duration. Recent stress testing negative for ischemia with echocardiograms and nuclear testing serially with preserved wall motion and LV systolic function. Functional capacity well above 5 METS without cardiac restriction. No prior history of angina, myocardial infarction, congestive heart failure, TIA or stroke, arrhythmias. Necessary surgery with symptomatic obstruction of bile duct in diabetic patient. No cardiac contraindications to surgery. Operative risk moderately increased secondary to acute presentation, elevated troponin, anemia, hyperglycemia, reduced renal function. Patient with multiple cardiovascular risk factors no manifest symptoms or cardiac dysfunction Recommendations: Proceed as surgically indicated. Patient now agreeable to glucose control in hospital with insulin Follow anemia closely 12/13/2024 Patient tolerated surgery well without cardiac complication. Recommendations. Multiple cardiovascular risk factors with planned continued follow-up with outpatient cardiology already arranged in February. Continue prehospital cardiac medications on discharge with rosuvastatin losartan and chlorthalidone as well as metoprolol succinate 25 mg/day. Will sign off contact with question I spent a total of 30 minutes on the date of service in preparation, delivery, and documentation of the care provided to this patient, excluding any time spent in the performance of separately billed services. 12/13/24 13:29 Clarence Chino MD Admission and Anticipated Discharge Date Admission Date: December 10, 2024 Subjective Patient seen and personally examined last evening and this morning. Tolerated surgery well yesterday. Now sitting out of bed having light breakfast. Minimal abdominal pain. No chest pains, shortness of breath no dizziness. No arrhythmias on telemetry. Review of Systems Review of Systems: All systems reviewed & are unremarkable except as noted in Subjective Physical Exam Constitutional: no acute distress Eyes: PERRL, conjunctivae normal, anicteric sclerae ENMT: external ear and nose normal, oropharynx normal Neck: trachea midline, no thyromegaly Respiratory: normal respiratory effort, lungs clear to auscultation Cardiovascular: RRR, no murmur, no edema Gastrointestinal (Abdomen): Percussion/Palpation: + abdomen tender Results & Data Vital Signs (Past 12 Hours) Vital Signs Temp Pulse Pulse Pulse Resp BP Pulse Ox 12/13/24 08:52 68 12/13/24 08:12 36.5 C 57 L 18 146/72 H 97 12/13/24 07:57 36.8 C 58 L 16 147/72 H 95 12/13/24 07:23 56 L 12/13/24 03:49 36.6 C 57 L 18 132/68 96 12/12/24 23:10 36.6 C 57 L 18 135/59 L 95 O2 Del Method 12/13/24 08:52 12/13/24 08:12 Room Air 12/13/24 07:57 Room Air 12/13/24 07:23 12/13/24 03:49 Room Air 12/12/24 23:10 Room Air Laboratory Results Laboratory Results - last 24 hr 12/12/24 12/12/24 12/12/24 11:50 16:47 20:07 WBC RBC Hgb Hct MCV MCH MCHC RDW Std Deviation RDW Coeff of Sadia Plt Count MPV Immature Gran % (Auto) Neut % (Auto) Lymph % (Auto) Harrison % (Auto) Eos % (Auto) Baso % (Auto) Neut # (Auto) Lymph # (Auto) Harrison # (Auto) Eos # (Auto) Baso # (Auto) Immature Gran # (Auto) Sodium Potassium Chloride Carbon Dioxide Anion Gap BUN Creatinine Est Cr Clr Drug Dosing eGFR BUN/Creatinine Ratio Glucose POC Glucose 168 H 205 H 270 H Calcium Total Bilirubin AST ALT Alkaline Phosphatase Total Protein Albumin Globulin Albumin/Globulin Ratio Urine Osmolality 12/13/24 12/13/24 12/13/24 04:15 08:06 09:15 WBC 18.23 H RBC 3.01 L Hgb 8.2 L Hct 25.1 L MCV 83.4 MCH 27.2 MCHC 32.7 RDW Std Deviation 37.7 RDW Coeff of Sadia 12.4 Plt Count 249 MPV 10.2 Immature Gran % (Auto) 1.0 Neut % (Auto) 86.3 Lymph % (Auto) 9.5 Harrison % (Auto) 3.0 Eos % (Auto) 0.1 Baso % (Auto) 0.1 Neut # (Auto) 15.72 H Lymph # (Auto) 1.74 Harrison # (Auto) 0.55 Eos # (Auto) 0.01 Baso # (Auto) 0.02 Immature Gran # (Auto) 0.19 Sodium 131 L Potassium 4.1 D Chloride 97 L Carbon Dioxide 25 Anion Gap 9 BUN 28 H Creatinine 3.14 H D Est Cr Clr Drug Dosing 12.9 eGFR 14.70 BUN/Creatinine Ratio 8.9 L Glucose 204 H POC Glucose 150 H Calcium 8.4 L Total Bilirubin 0.6 AST 99 H ALT 78 H Alkaline Phosphatase 78 Total Protein 6.5 Albumin 3.3 L Globulin 3.2 Albumin/Globulin Ratio 1.0 Urine Osmolality 113 L
--- NOTE | 2024-12-13 16:08 | Hospitalist Progress Note ---
Date of Service December 13, 2024 Assessment & Plan (1) Viral gastroenteritis: (2) Facial paresthesia: (3) Demand ischemia: (4) Symptomatic cholelithiasis: (5) Hypomagnesemia: (6) Chronic iron deficiency anemia: (7) Hypokalemia: (8) Prolonged QT interval: Plan Ms. Montesinos is a 79-year-old female with past med history significant for type 2 diabetes, dyslipidemia, left adrenal adenoma, intraductal papillary mucinous neoplasm, hypertension, diverticulosis colon, Damon, GERD, CKD stage III, osteoporosis, osteoarthritis, history of glaucoma, lives at home with her admitted for acute cholecystitis. Patient with perioral and left arm parasthesias. Ultimately, patient cleared for cholecystectomy 12/12 and doing well postoperatively Remained inpatient for renal function to stabilze #Acute cholecystitis positive HIDA scan continue Zosyn (antibiotics discontinued on admission) s/p lap kala 12/12 Resume diet PT/OT: no rehab or PT/OT #LUE, perioral paresthesias resolved CTM electrolytes CT head stable #Elevated troponin, likely demand iso acute illness #Chronic conduction delay LBBB, noted in 2016 #CAD intermittent interventricular conduction delay on EKG ECHO 60-65% 12/2024 stress test in 2023: Normal myocardial perfusion imaging with apical thinning. RCRI 2 points 2/2 Ischemic disease and intraperitoneal procedure Continue Metoprolol perioperatively Continue statin, ASA follows Dr Fuchs continue regimen #Abnormal electrolytes 2/2 acute illness and thiazide Trend and replace prn #Hypertension - hold irbesartan 300mg daily, chlorthalidone 25mg daily iso electrolyte abnormalities and relative hypotension #DMTII SSI #QTC prolonged avoid prolonging agents #NANCY on CKDIII stable, trend BMP avoid nephrotoxic agents IV plasmalyte DVT SCDS Admission and Anticipated Discharge Date Admission Date: December 10, 2024 Subjective NAEo reports minimal post surgical discomfort denies any acute concerns Physical Exam Constitutional: WD/WN, vitals as above Respiratory: normal respiratory effort, lungs clear to auscultation Cardiovascular: RRR, no murmur, no edema Gastrointestinal (Abdomen): normal bowel sounds, soft, nontender, no hepatosplenomegaly Results & Data Results & Data Vital Signs (Past 12 Hours) Vital Signs Temp Pulse Pulse Pulse Resp BP Pulse Ox 12/13/24 15:32 58 L 12/13/24 11:23 36.2 C L 56 L 18 138/72 98 12/13/24 08:52 68 12/13/24 08:12 36.5 C 57 L 18 146/72 H 97 12/13/24 07:57 36.8 C 58 L 16 147/72 H 95 12/13/24 07:23 56 L O2 Del Method 12/13/24 15:32 12/13/24 11:23 Room Air 12/13/24 08:52 12/13/24 08:12 Room Air 12/13/24 07:57 Room Air 12/13/24 07:23 Laboratory Results Short CBC 12/13/24 Range/Units 09:15 WBC 18.23 H (4.8-10.8) K/ul Hgb 8.2 L (12.0-16.0) g/dl Hct 25.1 L (37.0-47.0) % Plt Count 249 (130-400) K/uL BMP 12/13/24 09:15 Sodium 131 L Potassium 4.1 D Chloride 97 L Carbon Dioxide 25 BUN 28 H Creatinine 3.14 H D Glucose 204 H Calcium 8.4 L Liver Function 12/13/24 Range/Units 09:15 Total Bilirubin 0.6 (0.2-1.0) mg/dl AST 99 H (13-39) U/L ALT 78 H (7-52) U/L Alkaline Phosphatase 78 (34-104) U/L Albumin 3.3 L (3.4-5.0) gm/dl Medications Administered Home Medications Medication Instructions Recorded Confirmed Last Taken aspirin 81 mg tablet,delayed 81 mg PO DAILY 12/10/24 12/10/24 Unknown release chlorthalidone 25 mg tablet 25 mg PO DAILY 12/10/24 12/10/24 Unknown losartan 25 mg tablet 25 mg PO DAILY 12/10/24 12/10/24 Unknown metformin 500 mg tablet 500 mg PO DAILY 12/10/24 12/10/24 Unknown metoprolol succinate 25 mg 25 mg PO DAILY 12/10/24 12/10/24 Unknown tablet,extended release 24 hr omeprazole 20 mg capsule,delayed 20 mg PO DAILY 12/10/24 12/10/24 Unknown release rosuvastatin 40 mg tablet 40 mg PO DAILY 12/10/24 12/10/24 Unknown Active Medications Generic Name Dose Route Start Last Admin Trade Name Freq PRN Reason Stop Dose Admin Acetaminophen 650 mg 12/10/24 12:16 12/11/24 00:04 Acetaminophen 325 Mg Tab PO 01/09/25 12:15 650 mg Q4H PRN Administration Pain or Fever Aspirin 81 mg 12/10/24 09:00 12/13/24 08:55 Aspirin 81 Mg Ectab PO 01/09/25 08:59 81 mg DAILY DANIEL Administration Pantoprazole Sodium 40 mg in 10 mls @ 5 mls/min 12/10/24 21:00 12/13/24 08:56 Protonix IV 01/09/25 20:59 5 mls/min BID DANIEL Administration Parenteral Electrolytes 1,000 mls @ 125 mls/hr 12/12/24 17:15 12/13/24 10:13 Plasma-Lyte A Ph 7.4 IV 12/13/24 17:14 125 mls/hr .Q8H DANIEL Administration Insulin Aspart 0 units 12/10/24 16:30 12/13/24 13:31 Insulin Aspart Per Unit Charge SC 01/09/25 07:30 2 units ACHS DANIEL Administration Magnesium Oxide 400 mg 12/10/24 09:00 12/13/24 08:56 Magnesium Oxide 400 Mg Tab PO 01/09/25 08:59 400 mg BID DANIEL Administration Metoprolol Succinate 25 mg 12/10/24 09:00 12/13/24 08:56 Metoprolol Succ 25mg Ext Rel Tab PO 01/09/25 08:59 25 mg DAILY DANIEL Administration Rosuvastatin Calcium 40 mg 12/10/24 09:00 12/13/24 08:56 Rosuvastatin Calcium 20 Mg Tab PO 01/09/25 08:59 40 mg DAILY DANIEL Administration
[2024-12-13 16:33] LABS: BUN Creatinine Ratio 8.1 (10-20); Calcium 7.6 mg/dl (8.6-10.3); Creatinine Clr Calc Pharmacy 11.2 ml/min
[2024-12-13] MEDS ORDERED: HYDROCORTISONE HC 2.5% CRM 30GM TUBE EXT PRN (18:56)
[2024-12-13] MEDS: ADVANCED PROBIOTIC 625 MG CAPSULE PO SCH (20:11)
[2024-12-14] MEDS: PIPERACILLIN/TAZOBACTAM 4.5 GM/100 ML BAG IV SCH (00:33)
[2024-12-14 07:22] LABS: Hematocrit (blood only) 22.7 % (37.0-47.0); Hemoglobin 7.6 g/dl (12.0-16.0); Mean Corpuscular Hemoglobin 27.3 pg (25.0-34.0); Mean Corpuscular Hgb Conc 33.5 g/dL (32.0-36.0); Mean Corpuscular Volume 81.7 fL (80.0-100.0); Mean Platelet Volume 9.8 fL (9.4-12.4); Platelet Count 249 K/uL (130-400); RDW Coefficient of Variation 12.6 % (11.5-14.5); RDW Standard Deviation 37.3 fL (36.4-46.3); Red Blood Count 2.78 M/uL (4.20-5.40); White Blood Count 12.85 K/ul (4.8-10.8)
[2024-12-14 07:42] LABS: BUN Creatinine Ratio 8.5 (10-20); Bilirubin,Total 0.4 mg/dl (0.2-1.0); Calcium 8.3 mg/dl (8.6-10.3); Creatinine Clr Calc Pharmacy 9.6 ml/min; Magnesium 2.4 mg/dl (1.7-2.4); Potassium 4.2 mmol/L (3.5-5.1)
--- NOTE | 2024-12-14 07:59 | Hospitalist Progress Note ---
Date of Service December 14, 2024 Assessment & Plan (1) Acute cholecystitis: (2) Facial paresthesia: (3) Demand ischemia: (4) Symptomatic cholelithiasis: (5) Hypomagnesemia: (6) Chronic iron deficiency anemia: (7) Hypokalemia: (8) Prolonged QT interval: Plan Ms. Montesinos is a 79-year-old female with past med history significant for type 2 diabetes, dyslipidemia, left adrenal adenoma, intraductal papillary mucinous neoplasm, hypertension, diverticulosis colon, Damon, GERD, CKD stage III, osteoporosis, osteoarthritis, history of glaucoma, lives at home with her admitted for acute cholecystitis. Patient with perioral and left arm parasthesias. Ultimately, patient cleared for cholecystectomy 12/12 and doing well postoperatively Remained inpatient for renal function to stabilze #NANCY on CKDIII uptrending postoperatively still with UOP Strict UOP resendez avoid nephrotoxic agents discontinue zosyn, opt for renally dosed cefepime and flagyl Nephrology consult Renal US ordered #Acute cholecystitis positive HIDA scan continue Zosyn (antibiotics discontinued on admission) s/p lap kala 12/12 Resume diet PT/OT: no rehab or PT/OT #LUE, perioral paresthesias resolved CTM electrolytes CT head stable #Elevated troponin, likely demand iso acute illness #Chronic conduction delay LBBB, noted in 2016 #CAD intermittent interventricular conduction delay on EKG ECHO 60-65% 12/2024 stress test in 2023: Normal myocardial perfusion imaging with apical thinning. RCRI 2 points 2/2 Ischemic disease and intraperitoneal procedure Continue Metoprolol perioperatively Continue statin, ASA follows Dr Fuchs continue regimen #Abnormal electrolytes 2/2 acute illness and thiazide Trend and replace prn #Hypertension - hold irbesartan 300mg daily, chlorthalidone 25mg daily iso electrolyte abnormalities and relative hypotension #DMTII SSI #QTC prolonged avoid prolonging agents DVT SCDS Admission and Anticipated Discharge Date Admission Date: December 10, 2024 Subjective Some nausea attributed to flagyl Reports still with good urine output and some diarrhea that is improving She states discomfort is controlled and doesnt need anything for pain management at this time Physical Exam Constitutional: WD/WN, vitals as above Respiratory: normal respiratory effort, lungs clear to auscultation Cardiovascular: RRR, no murmur, no edema Gastrointestinal (Abdomen): normal bowel sounds, soft, nontender, no hepatosplenomegaly Results & Data Results & Data Vital Signs (Past 12 Hours) Vital Signs Temp Pulse Pulse Resp BP Pulse Ox O2 Del Method 12/14/24 07:00 37.4 C 63 20 132/71 94 Room Air 12/14/24 03:40 36.9 C 66 16 126/57 L 98 Room Air 12/14/24 02:32 56 L 12/13/24 22:53 36.7 C 58 L 18 130/70 96 Room Air Laboratory Results Short CBC 12/14/24 Range/Units 07:01 WBC 12.85 H (4.8-10.8) K/ul Hgb 7.6 L (12.0-16.0) g/dl Hct 22.7 L (37.0-47.0) % Plt Count 249 (130-400) K/uL BMP 12/13/24 12/14/24 16:01 07:01 Sodium 130 L 131 L Potassium 4.0 4.2 Chloride 95 L 98 Carbon Dioxide 23 24 BUN 29 H 36 H Creatinine 3.60 H D 4.23 H D Glucose 132 H 92 Calcium 7.6 L 8.3 L Liver Function 12/14/24 Range/Units 07:01 Total Bilirubin 0.4 (0.2-1.0) mg/dl AST 73 H (13-39) U/L ALT 68 H (7-52) U/L Alkaline Phosphatase 54 (34-104) U/L Albumin 3.0 L (3.4-5.0) gm/dl Medications Administered Home Medications Medication Instructions Recorded Confirmed Last Taken aspirin 81 mg tablet,delayed 81 mg PO DAILY 12/10/24 12/10/24 Unknown release chlorthalidone 25 mg tablet 25 mg PO DAILY 12/10/24 12/10/24 Unknown losartan 25 mg tablet 25 mg PO DAILY 12/10/24 12/10/24 Unknown metformin 500 mg tablet 500 mg PO DAILY 12/10/24 12/10/24 Unknown metoprolol succinate 25 mg 25 mg PO DAILY 12/10/24 12/10/24 Unknown tablet,extended release 24 hr omeprazole 20 mg capsule,delayed 20 mg PO DAILY 12/10/24 12/10/24 Unknown release rosuvastatin 40 mg tablet 40 mg PO DAILY 12/10/24 12/10/24 Unknown Active Medications Generic Name Dose Route Start Last Admin Trade Name Freq PRN Reason Stop Dose Admin Acetaminophen 650 mg 12/10/24 12:16 12/11/24 00:04 Acetaminophen 325 Mg Tab PO 01/09/25 12:15 650 mg Q4H PRN Administration Pain or Fever Aspirin 81 mg 12/10/24 09:00 12/14/24 09:58 Aspirin 81 Mg Ectab PO 01/09/25 08:59 81 mg DAILY DANIEL Administration Pantoprazole Sodium 40 mg in 10 mls @ 5 mls/min 12/10/24 21:00 12/14/24 09:56 Protonix IV 01/09/25 20:59 5 mls/min BID DANIEL Administration Cefepime HCl 1,000 mg in 10 mls @ 5 mls/min 12/14/24 09:00 12/14/24 10:04 Maxipime 2000mg IV 12/18/24 08:59 5 mls/min Q24H DANIEL Administration Insulin Aspart 0 units 12/10/24 16:30 12/14/24 09:48 Insulin Aspart Per Unit Charge SC 01/09/25 07:30 Not Given ACHS [facility] Lactobacillus Acidophilus 1,250 mg 12/13/24 19:00 12/14/24 09:59 Advanced Probiotic 625 Mg Capsule PO 01/12/25 18:59 1,250 mg DAILY [facility] Administration Magnesium Oxide 400 mg 12/10/24 09:00 12/14/24 09:59 Magnesium Oxide 400 Mg Tab PO 01/09/25 08:59 400 mg BID DANIEL Administration Metoprolol Succinate 25 mg 12/10/24 09:00 12/14/24 09:59 Metoprolol Succ 25mg Ext Rel Tab PO 01/09/25 08:59 25 mg DAILY DANIEL Administration Metronidazole 500 mg 12/14/24 09:00 12/14/24 09:58 Metronidazole 500 Mg Tab PO 12/18/24 08:59 500 mg TID DANIEL Administration Protocol Ondansetron HCl 4 mg 12/10/24 12:18 12/14/24 09:52 Ondansetron Inj 2 Mg/Ml 2 Ml Vial IV 01/09/25 12:17 4 mg Q6H PRN Administration Nausea And Vomiting Rosuvastatin Calcium 40 mg 12/10/24 09:00 12/14/24 09:59 Rosuvastatin Calcium 20 Mg Tab PO 01/09/25 08:59 40 mg DAILY DANIEL Administration
[2024-12-14] MEDS ORDERED: CEFEPIME 2 GM VIAL IV SCH (09:00)
--- NOTE | 2024-12-14 09:43 | Ultrasound Report ---
RENAL ULTRASOUND HISTORY: Acute kidney injury worsening kendy COMPARISON: CT abdomen and pelvis 12/10/2024 FINDINGS: Right kidney: 10.1 cm. Mild pelvocaliectasis without aracely hydronephrosis. Normal corticomedullary di fferentiation and cortical thickness. Left kidney: 10.2 cm. No hydronephrosis. Normal corticomedullary differentiation and cortical thickne ss. Bladder: Partial distention with mild wall thickening. The bilateral ureteral jets were identified. Trace free fluid within the abdominal right upper quadrant. IMPRESSION: 1. Mild pelvocaliectasis of the right kidney. No renal calculi identified. 2. Partial distention of the urinary bladder. ACT 112: Negative or not required by law. Electronically signed by: Nathaniel Yung M.D. 12/14/2024 9:42 AM
[2024-12-14] MEDS: ONDANSETRON INJ 2 MG/ML 2 ML VIAL IV PRN (09:52)
[2024-12-14] MEDS: metroNIDAZOLE 500 MG TAB PO SCH (09:58)
[2024-12-14] MEDS: CEFEPIME 1000MG 1,000 MG/10 ML SYR IV SCH (10:04)
--- NOTE | 2024-12-14 10:46 | Surgery Progress Note ---
Date of Service December 14, 2024 Assessment & Plan (1) Symptomatic cholelithiasis: Plan: pod 3 lap kala doing well from a surgical standpoint minimal abd discomfort incisions CDI , no s/s of infection wbc down trending , h/h noted pt asymptomatic denies lighted/dizziness , HR 63, BP 132/71 pt to follow up with Dr Jonas o/p General surgical will sign off at this time , call with questions/concerns. Admission and Anticipated Discharge Date Admission Date: December 10, 2024 Supervising Physician Co-Signing Physician Notes pnt S&E, labs reviewed, agree with above. POD#2 lap kala for gangrenous cholecystitis. Minimal pain, tolerating diet. Abd soft, inc w/o infx. wbc downtrending, ast/alt downtrending. Surgery will follow peripherally, call w/ questions or concerns. f/u w dr. jonas as outpnt. Subjective pt had some mild nausea this AM otherwise no complaints Review of Systems Constitutional: no fever and no chills Respiratory: no dyspnea Cardiovascular: no chest pain Gastrointestinal: + nausea; no abdominal pain and no vomit ing Genitourinary: no dysuria Physical Exam Constitutional: cooperative and comfortable; no acute distress Respiratory: normal respiratory effort and able to speak in complete sentences; no respiratory distress Cardiovascular: Rate/Rhythm: regular rate Gastrointestinal (Abdomen): Inspection/Auscultation: + abdominal surgical incision (CDI dermabond ); abdomen not distended Percussion/Palpation: abdomen soft Psychiatric: A+Ox3, euthymic affect Results & Data Vital Signs (Past 12 Hours) Vital Signs Temp Pulse Pulse Resp BP Pulse Ox O2 Del Method 12/14/24 07:00 99.3 F 63 20 132/71 94 Room Air 12/14/24 03:40 98.4 F 66 16 126/57 L 98 Room Air 12/14/24 02:32 56 L 12/13/24 22:53 98.1 F 58 L 18 130/70 96 Room Air Results CBC w Diff Results: RBC 2.78 M/uL (4.20-5.40) L 12/14/24 WBC 12.85 K/ul (4.8-10.8) H 12/14/24 Hgb 7.6 g/dl (12.0-16.0) L 12/14/24 Hct 22.7 % (37.0-47.0) L 12/14/24 MCV 81.7 fL (80.0-100.0) 12/14/24 MCH 27.3 pg (25.0-34.0) 12/14/24 MCHC 33.5 g/dL (32.0-36.0) 12/14/24 RDW Standard Deviation 37.3 fL (36.4-46.3) 12/14/24 RDW Coefficient of Variation 12.6 % (11.5-14.5) 12/14/24 Plt Count 249 K/uL (130-400) 12/14/24 MPV 9.8 fL (9.4-12.4) 12/14/24 Neutrophils (%) (Auto) 86.3 % 12/13/24 Lymphocytes (%) (Auto) 9.5 % 12/13/24 Monocytes # (Auto) 0.55 K/uL (0.11-0.59) 12/13/24 Eosinophils # (Auto) 0.01 K/uL (0.00-0.50) 12/13/24 Immature Granulocyte % (Auto) 1.0 % 12/13/24 Neutrophils # (Auto) 15.72 K/uL (1.40-6.50) H 12/13/24 Lymphocytes # (Auto) 1.74 K/uL (1.20-3.40) 12/13/24 Monocytes # (Auto) 0.55 K/uL (0.11-0.59) 12/13/24 Eosinophils # (Auto) 0.01 K/uL (0.00-0.50) 12/13/24 Basophils # (Auto) 0.02 K/uL (0.00-0.20) 12/13/24 Immature Granulocyte # (Auto) 0.19 K/uL (0.01-0.20) 5 PG Care Time/CCT Total # of Minutes Spent Total Time Spent with Patient: Total time spent is greater than 50% in coordination of care (as documented) at patient's floor/unit and/or counseling patient: Coding Level of Care Code 71315 SUB INP/OBS CARE 11/30MIN Diagnoses Symptomatic cholelithiasis K80.20
--- NOTE | 2024-12-14 12:49 | Nephrology Consultation ---
Date of Consultation December 14, 2024 Assessment & Plan (1) Acute kidney injury superimposed on stage 3b chronic kidney disease: Acute kidney injury on CKD stage III 2/ ischemic/toxic ATN - at the moment she is making urine electrolytes are acceptable. looks like her creatinine has not peaked yet, expect renal function still declined further therapy for improving. - continue with conservative measures - blood pressure has been soft and urine output not adequate. start him on Isolyte 100 mL an hour - continue to hold diuretics/ARB - renally dose antibiotics - daily input and output/Daily weights ( on the same scale)/BMP - replace electrolytes as needed. at the moment she does not need dialysis but things may change proceeding forward. (2) Acute cholecystitis: As per primary team/ surgery History of Present Illness Reason for Consultation: Acute kidney injury on CKD Attending Physician: Em Mukherjee MD History of Present Illness 79-year-old female with history of DM 2, HLD,, intraductal mucinous neoplasm hypertension diverticulosis ALEMAN GERD CKD stage III, baseline creatinine ( mid to late 1.0's) mg once who had presented to ER. On 12/10 with upper quadrant abdominal pain with nausea/ Vomiting with perioral and left arm parasthesias,Now s/p Cholecystectomy on 12/12( lap kala for gangrenous cholecystitis). ER labs were significant for serum creatinine of 1.7 with hypokalemia and hypomagnesemia progressive decline in renal function since his hospital stay serum creatinine 4+ today, She passed around 200 mL of urine over the last 24 hours. blood pressure has been soft with systolics in 100. hemoglobin which was 9 on admission has drifting down to 7.6 today.He was on Zosyn withdrawal presently is on metronidazole and cefepime. Renal ultrasound today, shows normal-sized nonobstructed kidneys Allergies Allergy/AdvReac Type Severity Reaction Status Date / Time Iodinated Contrast Media Allergy Unknown (ivp dye) Verified 12/10/24 04:12 Unknown Quinolones Allergy Unknown Unknown Verified 12/10/24 04:12 Sulfa (Sulfonamide Allergy Unknown Unknown Verified 12/10/24 04:12 Antibiotics) tetracycline Allergy Unknown Unknown Verified 12/10/24 04:12 Tetracyclines Allergy Unknown Unknown Verified 12/10/24 04:12 Home Medications Medication Instructions Recorded Confirmed Type aspirin 81 mg tablet,delayed 81 mg PO DAILY 12/10/24 12/10/24 History release chlorthalidone 25 mg tablet 25 mg PO DAILY 12/10/24 12/10/24 History losartan 25 mg tablet 25 mg PO DAILY 12/10/24 12/10/24 History metformin 500 mg tablet 500 mg PO DAILY 12/10/24 12/10/24 History metoprolol succinate 25 mg 25 mg PO DAILY 12/10/24 12/10/24 History tablet,extended release 24 hr omeprazole 20 mg capsule,delayed 20 mg PO DAILY 12/10/24 12/10/24 History release rosuvastatin 40 mg tablet 40 mg PO DAILY 12/10/24 12/10/24 History Patient History Social History Smoking Status: Never smoker Hx Alcohol Use: No Hx Substance Use: No Preferred Language: Romansh Communication Ability: Effective Chain Mender Required: No Beliefs That Will Affect Care: None Current Living Situation: Spouse Feels Safe at Home: Yes Review of Systems 2 Review of Systems: c/o abdominal pain, Ocassional nausea but no vomiting Physical Exam 2 Physical Exam: General- Not in di stress. Head- atr aumatic Eyes- PERR L. ENT- oropharynx clear Neck- suppl e, no JVD. Lungs- clear to auscultat ion no wheezing or crackles. Heart- regular rhythm; no murmur, no gallop . Abdomen- normal bowel sounds, soft , nontender, no di stension Extremiti es- no pretibial e marlo, no erythema seen. Neuro- alert , oriented PERRL, no facial palsy; no dysarthria; mov es extremities Results & Data Vital Signs (Past 12 Hours) Vital Signs Temp Pulse Pulse Resp BP Pulse Ox O2 Del Method 12/14/24 07:00 37.4 C 63 20 132/71 94 Room Air 12/14/24 03:40 36.9 C 66 16 126/57 L 98 Room Air 12/14/24 02:32 56 L Laboratory Results 12/14/24 07:01 12/14/24 07:01
[2024-12-14] MEDS: PLASMA-LYTE A 1,000 ML IV SCH (13:50)
[2024-12-15] MEDS: PROMETHAZINE 6.25 MG/50.25 ML BAG IV PRN (00:55)
[2024-12-15 07:43] LABS: Hematocrit (blood only) 22.2 % (37.0-47.0); Hemoglobin 7.5 g/dl (12.0-16.0); Mean Corpuscular Hemoglobin 28.2 pg (25.0-34.0); Mean Corpuscular Hgb Conc 33.8 g/dL (32.0-36.0); Mean Corpuscular Volume 83.5 fL (80.0-100.0); Mean Platelet Volume 9.7 fL (9.4-12.4); Platelet Count 235 K/uL (130-400); RDW Coefficient of Variation 12.9 % (11.5-14.5); RDW Standard Deviation 39.4 fL (36.4-46.3); Red Blood Count 2.66 M/uL (4.20-5.40); White Blood Count 9.11 K/ul (4.8-10.8)
[2024-12-15 08:09] LABS: Calcium 8.4 mg/dl (8.6-10.3); Creatinine Clr Calc Pharmacy 8.6 ml/min; Magnesium 2.5 mg/dl (1.7-2.4); Phosphorus 3.4 mg/dl (2.5-4.9)
--- NOTE | 2024-12-15 09:59 | Nephrology Progress Note ---
Date of Service December 15, 2024 Assessment & Plan (1) Acute kidney injury superimposed on stage 3b chronic kidney disease: Plan: Acute kidney injury on CKD stage III 2/ ischemic/toxic ATN - at the moment she is making urine electrolytes are acceptable. looks like her creatinine has not peaked yet, expect renal function to l decline further therapy for improving, it is 4.7 today, however UOP has improved which is encouraging - continue with conservative measures - blood pressure and UOP has improved. D/c Iv fluids. encourage oral intake - continue to hold diuretics/ARB - renally dose antibiotics - daily input and output/Daily weights ( on the same scale)/BMP - replace electrolytes as needed. at the moment she does not need dialysis but things may change proceeding forward. (2) Acute cholecystitis: Plan: As per primary team/ surgery Admission and Anticipated Discharge Date Admission Date: December 10, 2024 Subjective More settled today Abdominal pain better Review of Systems 2 Review of Systems: -abdominal discomfort Physical Exam 2 Physical Exam: General- Not in di stress. Head- atr aumatic Eyes- PERR L. ENT- oropharynx clear Neck- suppl e, no JVD. Lungs- clear to auscultat ion no wheezing or crackles. Heart- regular rhythm; no murmur, no gallop . Abdomen- normal bowel sounds, soft , nontender, no di stension Extremiti es- no pretibial e marlo, no erythema seen. Neuro- alert , oriented PERRL, no facial palsy; no dysarthria; mov es extremities Results & Data Vital Signs (Past 12 Hours) Vital Signs Temp Pulse Pulse Resp BP BP Pulse Ox 12/15/24 07:44 37.3 C 63 18 147/69 H 94 12/15/24 02:23 37.4 C 62 142/69 H 94 12/15/24 01:13 61 12/14/24 22:46 36.7 C 57 L 18 119/64 96 O2 Del Method 12/15/24 07:44 Room Air 12/15/24 02:23 Room Air 12/15/24 01:13 12/14/24 22:46 Room Air Laboratory Results 12/15/24 07:17 12/15/24 07:17
--- NOTE | 2024-12-15 11:34 | Hospitalist Progress Note ---
Date of Service December 15, 2024 Assessment & Plan (1) Acute gangrenous cholecystitis: (2) Symptomatic cholelithiasis: (3) Acute kidney injury (NANCY) with acute tubular necrosis (ATN): (4) Acute kidney injury superimposed on stage 3b chronic kidney disease: (5) Facial paresthesia: (6) Demand ischemia: (7) Hypomagnesemia: (8) Chronic iron deficiency anemia: (9) Hypokalemia: (10) Prolonged QT interval: Plan Patient continuing to recover from cholecystectomy. Significant gangrenous gallbladder. He completed a 5-day course of oral antibiotics Unfortunately renal function continues to deteriorate has not yet plateaued. Highly suspect ATN in the setting of sepsis and infection and nephrotoxins Reviewed nephrology recommendations, continue to monitor renal function, patient making good urine. Anticipate renal function plateauing and improving in the next couple days Okay to [facility] Continue to monitor hemoglobin and electrolytes Admission and Anticipated Discharge Date Admission Date: December 10, 2024 Subjective Patient overall feeling better. Doing some ambulation. No abdominal pain. Physical Exam Physical Exam: Constitutional: Alert, nontoxic HEENT: Mucous membranes moist. Lungs: Clear to auscultation, decreased, no wheezes rales or rhonchi CV: S1-S2, regular Abdomen: Soft, nontender, nondistended, incisions healing well Extremities: No significant edema Neuro: No focal deficits Psych: Cooperative, normal mood Results & Data Results & Data Vital Signs (Past 12 Hours) Vital Signs Temp Pulse Pulse Resp BP BP Pulse Ox 12/15/24 11:00 37.3 C 73 18 127/66 95 12/15/24 07:44 37.3 C 63 18 147/69 H 94 12/15/24 02:23 37.4 C 62 142/69 H 94 12/15/24 01:13 61 O2 Del Method 12/15/24 11:00 Room Air 12/15/24 07:44 Room Air 12/15/24 02:23 Room Air 12/15/24 01:13 Diagnostic Findings Reviewed imaging, laboratory and diagnostic studies. Pertinent findings as below. Hemoglobin 7.5 slowly trending downward Creatinine 4.75, slightly increased Magnesium 2.5 Renal ultrasound showed no significant obstruction Bladder scan no evidence of retention
[2024-12-16 09:12] LABS: Hematocrit (blood only) 21.8 % (37.0-47.0); Hemoglobin 7.3 g/dl (12.0-16.0)
[2024-12-16 09:20] LABS: BUN Creatinine Ratio 7.4 (10-20); Calcium 8.5 mg/dl (8.6-10.3); Creatinine Clr Calc Pharmacy 7.8 ml/min; Potassium 3.8 mmol/L (3.5-5.1)
[2024-12-16] MEDS: PANTOprazole 40 MG TAB PO SCH (10:01)
--- NOTE | 2024-12-16 10:03 | Nephrology Progress Note ---
Date of Service December 16, 2024 Assessment & Plan (1) Acute kidney injury superimposed on stage 3b chronic kidney disease: Plan: stage 3 nonologuric acute kidney injury baseline creatinine 1.7 (early CKD4/advanced 3B) 2/2 ischemic/toxic ATN - brisk UOP continues (>2L yesterday) ; electrolytes remain acceptable. her creatinine has not peaked yet and continues to rise about 0.5 mg/dL daily; expect decline in renal function eventually to slow then plateau and start to recover; creat up to 5.3 today - continue with supportive measures - blood pressure and UOP acceptable. encourage oral intake - continue to hold diuretics/ARB - renally dose antibiotics - daily input and output/Daily STANDING weights ( on the same scale)/BMP - replace electrolytes as needed at the moment she does not need dialysis but cannot rule out need Dr Baron inquired about preemptive pRBC for her > would that increase renal perfusion >> suggested deferring this as risks of comlications outweigh benefits; would monitor daily though and give if hgb under 7 or sx (2) Acute cholecystitis: Plan: As per primary team/ surgery Admission and Anticipated Discharge Date Admission Date: December 10, 2024 Subjective sseen on late AM rounds; no interval events. walking laps in [place]dy, eating most / 95% of tray; no sob, no N, no edema or rash; worried about mentally disabled granddaughter who depends on her Review of Systems 2 Review of Systems: All systems reviewed & are unremarkable except as noted in Subjective Physical Exam 2 Constitutional: well developed and well nourished Eyes: EOM intact bilaterally ENMT: Ears: no external ear abnormality Nose: no external nose abnormality Mouth: + dry oral mucous membranes Neck: no nuchal rigidity Respiratory: normal respiratory effort Auscultation: + diminished lung sounds Gastrointestinal (Abdomen): Inspection/Auscultation: normal bowel sounds P ercussion/Palpation: abdomen soft; abdomen nontender Musculoskeletal: Extremities: strength 5/5 throughout Skin: no rashes, warm and dry Neurologic: reeves, fluent speech, no tremor Results & Data Vital Signs (Past 12 Hours) Vital Signs Temp Pulse Resp BP Pulse Ox O2 Del Method 12/16/24 07:35 37.0 C 62 18 152/67 H 96 Room Air Laboratory Results 12/16/24 08:28 12/16/24 08:28
--- NOTE | 2024-12-16 12:08 | Hospitalist Progress Note ---
Date of Service December 16, 2024 Assessment & Plan (1) Acute gangrenous cholecystitis: (2) Symptomatic cholelithiasis: (3) Acute kidney injury (NANCY) with acute tubular necrosis (ATN): (4) Acute kidney injury superimposed on stage 3b chronic kidney disease: (5) Anemia: (6) Facial paresthesia: (7) Demand ischemia: (8) Hypomagnesemia: (9) Chronic iron deficiency anemia: (10) Hypokalemia: (11) Prolonged QT interval: Plan Patient continues to recover status postcholecystectomy for gangrenous cholecystitis. Doing well with diet, ambulation and resumption of bowel habits. Unfortunately patient's renal dysfunction continues to progress, has not yet plateaued or showed signs of recovery. Electrolytes stable. Patient also was progressive decline in hemoglobin, no obvious ongoing blood loss suspect function of poor production in the setting of her renal dysfunction and some mild iron deficiency and acute illness. Communication with nephrology, continue to monitor renal function on a daily basis anticipating a plateau in recovery in the next couple days. Continue to avoid nephrotoxins. Consider transfusion PRBC, currently patient does not seem to be symptomatic from this slow blood loss, some may even be due to the frequent daily labs and iatrogenic anemia. Continue to monitor glucose, covering with sliding scale insulin Updated patient's via phone Admission and Anticipated Discharge Date Admission Date: December 10, 2024 Subjective Patient reports feeling improved. Moving her bowels. Tolerating her diet. No abdominal pain. Physical Exam Physical Exam: Constitutional: Alert, nontoxic HEENT: Mucous membranes moist. Lungs: Clear to auscultation, decreased, no wheezes rales or rhonchi CV: S1-S2, regular Abdomen: Soft, nontender, nondistended, incisions healing well Extremities: No significant edema Neuro: No focal deficits Psych: Cooperative, normal mood Results & Data Results & Data Vital Signs (Past 12 Hours) Vital Signs Temp Pulse Resp BP Pulse Ox O2 Del Method 12/16/24 07:35 37.0 C 62 18 152/67 H 96 Room Air Diagnostic Findings Reviewed imaging, laboratory and diagnostic studies. Pertinent findings as below. Hemoglobin 7.3, slowly trending down Sodium 132 Creatinine 5.2, increased over yesterday
[2024-12-17 07:53] LABS: Hemoglobin 7.6 g/dl (12.0-16.0); Mean Corpuscular Hemoglobin 27.6 pg (25.0-34.0); Mean Corpuscular Volume 83.6 fL (80.0-100.0); Mean Platelet Volume 9.8 fL (9.4-12.4); Platelet Count 269 K/uL (130-400); RDW Coefficient of Variation 13.1 % (11.5-14.5); RDW Standard Deviation 39.5 fL (36.4-46.3); Red Blood Count 2.75 M/uL (4.20-5.40); White Blood Count 14.02 K/ul (4.8-10.8)
[2024-12-17 08:15] LABS: BUN Creatinine Ratio 7.2 (10-20); Calcium 8.5 mg/dl (8.6-10.3); Creatinine Clr Calc Pharmacy 7.6 ml/min
--- NOTE | 2024-12-17 09:32 | Nephrology Progress Note ---
Date of Service December 17, 2024 Assessment & Plan (1) Acute kidney injury superimposed on stage 3b chronic kidney disease: Plan: worsening stage 3 nonoliguric acute kidney injury baseline creatinine 1.7 (early CKD4/advanced 3B) BUT the good news is rate of creatinine increase has slowed from about 0.5 mg/dL daily x days to 0.14 mg/dL today. 2/2 ischemic/toxic ATN - adequate UOP; electrolytes remain acceptable. her creatinine has not peaked yet but expect it to soon; expect decline in renal function to slow then plateau and start to recover; creat up to 5.4 today - continue with supportive measures - blood pressure and UOP acceptable. encourage oral intake - continue to hold diuretics/ARB - renally dose antibiotics - daily input and output/BMP at the moment she does not need dialysis but cannot rule out need ; worsening WBC concerning Care coordinated w/ Dr Humphries regarding leukocytosis, hydralazine, continued supportive care via TText. we are in agreement (2) Uncontrolled hypertension: Plan: more prominent past 24 hrs -control pain -activity as tolerated -continue heart healthy diet -continue metoprolol >added hydralazine 25 mg q8hr w/ hold parameters for SBP <130, timed to be given during waking hours (3) Acute cholecystitis: Plan: As per primary team/ surgery >>new leukocytosis noted today > up to 14K from 9 K yesterday. Admission and Anticipated Discharge Date Admission Date: December 10, 2024 Subjective did 1 lap already in unit; di d4 yoday; urine a bit darker; some n/v > but she also was having this months prior to GB issues; still eating well except for eggs Review of Systems 2 Review of Systems: All systems reviewed & are unremarkable except as noted in Subjective Physical Exam 2 Constitutional: well developed (maenuvers easily for exam), well nourished and cooperative Eyes: EOM intact bilaterally ENMT: Ears: no external ear abnormality Nose: no external nose abnormality Mouth: + dry oral mucous membranes Neck: no nuchal rigidity Respiratory: normal respiratory effort Auscultation: + diminished lung sounds Cardiovascular: RRR, no murmur, no edema Gastrointestinal (Abdomen): Inspection/Auscultation: normal bowel sounds P ercussion/Palpation: abdomen soft; abdomen nontender Musculoskeletal: Extremities: strength 5/5 throughout Skin: no rashes, warm and dry Results & Data Vital Signs (Past 12 Hours) Vital Signs Temp Pulse Resp BP Pulse Ox O2 Del Method 12/17/24 08:24 37 C 72 16 197/74 H 98 Room Air Laboratory Results 12/17/24 07:13 12/17/24 07:13
--- NOTE | 2024-12-17 14:49 | Hospitalist Progress Note ---
Date of Service December 17, 2024 Assessment & Plan (1) Acute gangrenous cholecystitis: (2) Symptomatic cholelithiasis: (3) Acute kidney injury (NANCY) with acute tubular necrosis (ATN): (4) Acute kidney injury superimposed on stage 3b chronic kidney disease: (5) Anemia: (6) Facial paresthesia: (7) Demand ischemia: (8) Hypomagnesemia: (9) Chronic iron deficiency anemia: (10) Hypokalemia: (11) Prolonged QT interval: Plan Patient with acute ATN and status post gangrenous cholecystitis and cholecystectomy. Creatinine only slightly increased today, hopefully reaching a plateau and will see improvement in creatinine. Communication with nephrology, continue supportive care, continue to avoid nephrotoxins. Started hydralazine for blood pressure WBCs increased today over yesterday. Patient has been on antibiotics up until midnight last night, would not even had received any doses prior to today's lab work. This may be reactive. No other constitutional symptoms. No fevers. No pain. Continue to trend WBCs off antibiotics Check chest x-ray with patient's complaints of cough with production of sputum Continue to monitor renal function Continue to encourage activity and deep inspiration and ambulation Anticipate discharge home when a continued trend and improvement of her renal function. Admission and Anticipated Discharge Date Admission Date: December 10, 2024 Subjective Patient states that she is having a lot of mucus production. Bit worn out this morning. Not much of an appetite this morning. Denies any abdominal pain. Reports that she made 4 laps walking around the unit yesterday Physical Exam Physical Exam: Constitutional: Alert, nontoxic HEENT: Mucous membranes moist. Lungs: Decreased breath sounds CV: S1-S2, regular Abdomen: Soft, nontender, nondistended Extremities: No significant edema Neuro: No focal deficits Psych: Cooperative, normal mood Results & Data Results & Data Vital Signs (Past 12 Hours) Vital Signs Temp Pulse Resp BP Pulse Ox O2 Del Method 12/17/24 11:24 37.2 C 60 16 153/64 H 97 Room Air 12/17/24 09:27 170/69 H 12/17/24 08:24 37 C 72 16 197/74 H 98 Room Air Diagnostic Findings Reviewed imaging, laboratory and diagnostic studies. Pertinent findings as below. WBCs 14.0, increased Hemoglobin 7.6, slightly improved Creatinine 5.39
--- NOTE | 2024-12-17 17:02 | XRay Report ---
Exam: Chest (two views) Reason for exam: Cough Previous studies: 12/09/2024 FINDINGS: As compared to the previous study, the cardiac size remains normal. Newly appearing faint areas of interstitial consolidation are now seen in the left upper lobe and right lower lobe consistent with a interstitial pneumonitis. Additionally small left and minimal right pleural effusions have appeared. IMPRESSION: 1. Newly appearing interstitial infiltrates of the left upper lobe and right lower lobe compatible with pneumonitis of uncertain etiology. Atypical agents including viral etiology should be considered. 2. Development of small bilateral pleural effusions. Electronically signed by Jer Chavez 12-17-2024 5:02 PM
[2024-12-17] MEDS: hydrALAZINE HCL 25 MG TAB PO SCH (19:25)
[2024-12-18] MEDS: ONDANSETRON INJ 2 MG/ML 2 ML VIAL IV STA (05:18)
[2024-12-18 08:08] LABS: Basophils # (auto) 0.04 K/uL (0.00-0.20); Basophils % (auto) 0.4 %; Eosinophils # (auto) 0.41 K/uL (0.00-0.50); Eosinophils % (auto) 3.6 %; Hematocrit (blood only) 21.1 % (37.0-47.0); Immature Granulocytes # (auto) 0.07 K/uL (0.01-0.20); Immature Granulocytes % (auto) 0.6 %; Lymphocytes # (auto) 1.89 K/uL (1.20-3.40); Lymphocytes % (auto) 16.7 %; Mean Corpuscular Hemoglobin 27.6 pg (25.0-34.0); Mean Corpuscular Hgb Conc 33.2 g/dL (32.0-36.0); Mean Corpuscular Volume 83.1 fL (80.0-100.0); Mean Platelet Volume 9.6 fL (9.4-12.4); Monocytes # (auto) 0.79 K/uL (0.11-0.59); Neutrophils # (auto) 8.09 K/uL (1.40-6.50); Neutrophils % (auto) 71.7 %; Platelet Count 260 K/uL (130-400); RDW Coefficient of Variation 12.8 % (11.5-14.5); RDW Standard Deviation 39.5 fL (36.4-46.3); Red Blood Count 2.54 M/uL (4.20-5.40); White Blood Count 11.29 K/ul (4.8-10.8)
[2024-12-18 08:35] LABS: RBC Morphology Unremarkable
[2024-12-18 08:39] LABS: BUN Creatinine Ratio 7.6 (10-20); Calcium 8.5 mg/dl (8.6-10.3); Creatinine Clr Calc Pharmacy 8.5 ml/min; Magnesium 2.2 mg/dl (1.7-2.4); Phosphorus 3.4 mg/dl (2.5-4.9); Potassium 4.1 mmol/L (3.5-5.1)
[2024-12-18] MEDS ORDERED: SODIUM CHLORIDE 0.9% 50 ML IV PRN ×2 (09:40→10:12)
[2024-12-18] MEDS ORDERED: SODIUM CHLORIDE 0.9% 100 ML IV PRN ×2 (09:40→10:12)
[2024-12-18 10:18] LABS: Adenovirus PCR Not Detected (NotDetected); Bordetella parapertussis PCR Not Detected (NotDetected); Bordetella pertussis PCR Not Detected (NotDetected); Chlamydia pneumoniae PCR Not Detected (NotDetected); Coronavirus 229E PCR Not Detected (NotDetected); Coronavirus CoV-2 (COVID19)PCR Not Detected (NotDetected); Coronavirus HKU1 PCR Not Detected (NotDetected); Coronavirus NL63 PCR Not Detected (NotDetected); Coronavirus OC43PCR Not Detected (NotDetected); Human Metapneumovirus PCR Not Detected (NotDetected); Influenza A PCR Not Detected (NotDetected); Influenza B PCR Not Detected (NotDetected); Mycoplasma pneumoniae PCR Not Detected (NotDetected); Parainfluenza Virus 1 PCR Not Detected (NotDetected); Parainfluenza Virus 2 PCR Not Detected (NotDetected); Parainfluenza Virus 3 PCR Not Detected (NotDetected); Parainfluenza Virus 4 PCR Not Detected (NotDetected); Respiratory Syncytial VirusPCR Not Detected (NotDetected); Rhinovirus/Enterovirus PCR Not Detected (NotDetected)
[2024-12-18 10:31] LABS: Folate (Folic Acid),Ser orPlas > 22.30 ng/ml (>5.38)
[2024-12-18 10:32] LABS: Vitamin B12 598 pg/ml (180-914)
[2024-12-18 10:52] LABS: Ferritin 210.2 ng/ml (8-388)
--- NOTE | 2024-12-18 11:00 | CT Scan Report ---
ABDOMEN AND PELVIS CT WITHOUT CONTRAST CT DOSE: 1149.5 mGy.cm HISTORY: Acute generalized abdominal pain r/o bleeding TECHNIQUE: Multiaxial CT images of the abdomen and pelvis were performed without contrast. A dose lo wering technique was utilized adhering to the principles of ALARA. COMPARISON STUDY: December 10, 2024 FINDINGS: Cardiomegaly. Decreased attenuation of the cardiac blood pool suggestive of anemia. Coronar y artery calcifications. Small layering pleural effusions with mild pulmonary edema and subsegmental bibasilar atelectasis. There is no pneumatosis or pneumoperitoneum. The unenhanced spleen, pancreas and liver appear unremarkable. Cholecystectomy with postoperative str anding/free fluid within the erick hepatis. No postoperative fluid collection. 1.8 cm left adrenal ad enoma. There is a stable 5.9 x 5.5 x 5.2 cm right adrenal myelolipoma. Mild nonspecific bilateral per inephric stranding. No renal or ureteral calculi or hydronephrosis. Bladder wall thickening with part ial distention. Hysterectomy. Atherosclerosis of the aorta without aneurysm. No pathologically enlarg ed lymph nodes. No acute retroperitoneal hemorrhage. Mild distal esophageal wall thickening with adjacent paraesophageal fluid and subcentimeter lymph nod es. Small hiatal hernia. Colonic diverticulosis. There is wall thickening with partial distention inv olving majority of the colon and rectum. Moderate colonic fecal retention. No CT evidence of acute ap pendicitis. No acute fracture. IMPRESSION: 1. Evidence of recent cholecystectomy with postoperative trace fluid within the erick hepatis. No pos toperative fluid collection. 2. Cardiomegaly with evidence of anemia. Interstitial pulmonary edema with layering pleural effusions and mild bibasilar atelectasis. 3. Small hiatal hernia with mild distal esophageal wall thickening redemonstrated. 5. No bowel obstruction or pneumoperitoneum. 6. Colonic diverticulosis. 7. Additional findings as above. ACT 112: Negative or not required by law. The above report was generated using voice recognition software. It may contain grammatical, syntax o r spelling errors. Electronically signed by: Nathaniel Yung M.D. 12/18/2024 10:59 AM
--- NOTE | 2024-12-18 11:27 | Nephrology Progress Note ---
Date of Service December 18, 2024 Assessment & Plan (1) Acute kidney injury superimposed on stage 3b chronic kidney disease: Plan: finally starting to improve stage 3 nonoliguric acute kidney injury baseline creatinine 1.7 (early CKD4/advanced 3B) for first time today; presenting creatinine 1.7, peak creatinine on 12/17 5.4 2/2 ischemic/toxic ATN - adequate UOP; electrolytes remain acceptable. her creatinine has not peaked yet but expect it to soon; expect decline in renal function to slow then plateau and start to recover; creat down to 4.9 today - continue with supportive measures - blood pressure and UOP acceptable. encourage oral intake - continue to hold diuretics/ARB - renally dose antibiotics - daily input and output/BMP at the moment she does not need dialysis but cannot rule out need ; worsening WBC concerning Care coordinated w/ NOA Art regarding leukocytosis, hydralazine, continued supportive care via TText. we are in agreement (2) Uncontrolled hypertension: Plan: more prominent past 3 days -control pain -activity as tolerated -continue heart healthy diet -continue metoprolol though w/ HR in 50s will lower dose to 12.5 mg daily from 25mg daily starting 12/19 >yesterday started hydralazine 25 mg q8hr w/ hold parameters for SBP <130, timed to be given during waking hours >> has had only one dose so far (3) Acute cholecystitis: Plan: As per primary team/ surgery >>new leukocytosis noted yesterday improved some > up to 14K yesterday and down to 11 K today. Admission and Anticipated Discharge Date Admission Date: December 10, 2024 Subjective getting pRBC today as hgb has continued to drift down; anxious about ct results; no sob, still w/ N and foamy emesis at times; walked halls x 2; no edema Review of Systems 2 Review of Systems: All systems reviewed & are unremarkable except as noted in Subjective Physical Exam 2 Constitutional: well developed, well nourished and cooperative Eyes: EOM intact bilaterally ENMT: Ears: no external ear abnormality Nose: no external nose abnormality Mouth: + dry oral mucous membranes Neck: no nuchal rigidity Respiratory: normal respiratory effort Auscultation: + diminished lung sounds Cardiovascular: RRR, no murmur, no edema Gastrointestinal (Abdomen): Inspection/Auscultation: normal bowel sounds P ercussion/Palpation: abdomen soft; abdomen nontender Musculoskeletal: Extremities: strength 5/5 throughout Skin: no rashes, warm and dry Results & Data Vital Signs (Past 12 Hours) Vital Signs Temp Pulse Resp BP Pulse Ox O2 Del Method 12/18/24 08:38 68 12/18/24 07:07 37.0 C 50 L 18 156/75 H 95 Room Air Laboratory Results 12/18/24 07:25 12/18/24 07:25
--- NOTE | 2024-12-18 11:32 | Hospitalist Progress Note ---
Date of Service December 18, 2024 Assessment & Plan (1) Acute gangrenous cholecystitis: (2) Acute kidney injury (NANCY) with acute tubular necrosis (ATN): (3) Acute kidney injury superimposed on stage 3b chronic kidney disease: (4) Uncontrolled hypertension: (5) Type II diabetes mellitus: (6) Anemia: Plan Ms. Montesinos is a 79-year-old female with past med history significant for type 2 diabetes, dyslipidemia, left adrenal adenoma, intraductal papillary mucinous neoplasm, hypertension, diverticulosis colon, Damon, GERD, CKD stage III, osteoporosis, osteoarthritis, history of glaucoma, lives at home with her admitted for acute cholecystitis. #Acute gangrenous cholecystitis s/p Lap kala on 12/12 completed IV zosyn incision healing well, no post op abd complaints given anemia repeat CT a/p performed today -- CTa/p: Evidence of recent cholecystectomy with postoperative trace fluid within the erick hepatis. No postoperative fluid collection.2. Cardiomegaly with evidence of anemia. Interstitial pulmonary edema with layering pleural effusions and mild bibasilar atelectasis.3. Small hiatal hernia with mild distal esophageal wall thickening redemonstrated.5. No bowel obstruction or pneumoperitoneum.6. Colonic diverticulosis.7. Additional findings as above. WBC trending down, tolerating diet, ambulating around unit, no PT/OT requirements at discharge #NANCY on CKDIII #ATN - suspect ischemic/toxic uptrending postoperatively and peaking at 5.39, down to 4.85 today baseline cr ~1.5 Nephro on board, adequate UOP, electrolytes stable, no indication for HD at this time Strict UOP/intake avoid nephrotoxic agents continue to hold ARB Discussed pts case with Dr. Landeros who recommends giving IV lasix 40mg post transfusion daily bmp #Anemia outpt hgb was ~ 10 in 2023, previously normal in 2022 pt reports hx of iron def in past, has routine cscopes/egd reviewed out cscope in 2019 with polyp removals/internal hem/diverticulosis EGD in 2022 revealed erythematous mucosa of gastric body, 1cm hiatal hernia, irregular z line, recommended daily PPI which is she on, biopsy showed chronic inactive gastritis pt denies aracely bleeding, mild nose bleed the other day but < 5 min anemia panel revealed low Iron and T sat at 25 and 9%, ferritin adequate, B12 and folate normal Hgb 7.0 today, will transfuse 1 unit PRBC and give 40mg IV lasix post transfusion, consent obtained could consider Iron infusions if volume status allows, will consider tomorrow after discussion with nephro Blood consent was obtained from the patient as delegated by Dr. Thompson. Risks and benefits were explained. All questions were answered, and the patient (or patient delegate) was offered the opportunity to discuss with attending physician and declined. #Elevated troponin, likely demand iso acute illness #Chronic conduction delay LBBB, noted in 2016 #CAD intermittent interventricular conduction delay on EKG ECHO 60-65% 12/2024 stress test in 2023: Normal myocardial perfusion imaging with apical thinning. RCRI 2 points 2/2 Ischemic disease and intraperitoneal procedure Continue Metoprolol perioperatively Continue statin, ASA follows Dr Fuchs continue regimen #Abnormal electrolytes 2/2 acute illness and thiazide Trend and replace prn #Hypertension - hold irbesartan 300mg daily, chlorthalidone 25mg daily iso electrolyte abnormalities and relative hypotension - started on hydralazine 25mg TID, monitor #DMTII SSI , a1c 6.6 on 12/12 #QTC prolonged avoid prolonging agents DVT SCDS FULL CODE PCP: Dr. Jordan Dispo: admitted to medical, not yet medically stable for discharge, awaiting nephro clearance and improvement in anemia Pt was seen and examined in collaboration with Dr. Thompson, please see addendum I spent a total of 61 minutes coordinating, documenting and providing care for this patient excluding time spent in the performance of separately billed services or time spent by another provider/QHP. Admission and Anticipated Discharge Date Admission Date: December 10, 2024 Supervising Physician Co-Signing Physician Notes Pt seen and examined by me, care coordinated w/ Vesta Art PA-C, pls refer to her note for further detail. Pt is currently laying in bed in NAD, reports feeling fairly well, denies any significant abd. pain. Says she has nausea on and off. Abdomen is soft on palpation, nontender. She is ambulating. Hgb 7, will transfuse 1 unit of pRBC. Given anemia, will also obtain fobt, pt is on PPI. CT abd/pelvis. Creatinine continues to be elevated, nephrology following closely. Given anemia, will also obtain fobt, pt is on PPI. MD Jay Subjective Pt seen in [facility]. She reports the hospital food makes her nauseated. She reports a cough, worse at night, occasionally productive of white mucus. She denies f/c/s, chest pain, sob, sob with ext, vomiting, abd pain. SHe is moving her bowels. She walks the halls up to 3x a day. She reports a hx of iron def but denies every receiving treatment. She reports having a EGD a few years ago due to needed her esophagus dilated. She also has a hx of colonic polyps and gets cscopes every 3-5 years. She denies any hx of GIB or PUD. She did have a small nose bleed the other day, but that only lasted minutes. Review of Systems Review of Systems: All systems reviewed & are unremarkable except as noted in HPI & below Physical Exam Physical Exam: Gen: WD/WN, pale, F, NAD, A&O x3 HEENT: Normocephalic, atraumatic, conjunctivae moist, sclerae anicteric, mucous membranes moist. Lung: Clear to Auscultation bilaterally, no wheezes/rales/rhonchi Heart: Regular rate, regular rhythm, no murmurs, rubs, or gallops Abdomen: Soft, NT, ND +BS x 4 + lap incisions healing well, no surrounding erythema, RUQ mild eccyhmosis Extremities: No edema Skin: Warm, no rash, negative turgor. Results & Data Results & Data Vital Signs (Past 12 Hours) Vital Signs Temp Pulse Resp BP Pulse Ox O2 Del Method 12/18/24 08:38 68 12/18/24 07:07 37.0 C 50 L 18 156/75 H 95 Room Air Laboratory Results Short CBC 12/18/24 Range/Units 07:25 WBC 11.29 H (4.8-10.8) K/ul Hgb 7.0 L (12.0-16.0) g/dl Hct 21.1 L (37.0-47.0) % Plt Count 260 (130-400) K/uL BMP 12/18/24 07:25 Sodium 135 L Potassium 4.1 Chloride 102 Carbon Dioxide 25 BUN 37 H Creatinine 4.85 H* D Glucose 101 H Calcium 8.5 L I have independently reviewed and interpreted patient's cbc, bmp, iron panel, folate, b12, procal ,resp biofire Diagnostic Findings Abdomen/Pelvis CT 12/18/24 09:[address] WITHOUT CONTRAST CT DOSE: 1149.5 mGy.cm HISTORY: Acute generalized abdominal pain r/o bleeding TECHNIQUE: Multiaxial CT images of the abdomen and pelvis were performed without contrast. A dose lowering technique was utilized adhering to the principles of ALARA. COMPARISON STUDY: December 10, 2024 FINDINGS: Cardiomegaly. Decreased attenuation of the cardiac blood pool suggestive of anemia. Coronary artery calcifications. Small layering pleural effusions with mild pulmonary edema and subsegmental bibasilar atelectasis. There is no pneumatosis or pneumoperitoneum. The unenhanced spleen, pancreas and liver appear unremarkable. Cholecystectomy with postoperative stranding/free fluid within the erick hepatis. No postoperative fluid collection. 1.8 cm left adrenal adenoma. There is a stable 5.9 x 5.5 x 5.2 cm right adrenal myelolipoma. Mild nonspecific bilateral perinephric stranding. No renal or ureteral calculi or hydronephrosis. Bladder wall thickening with partial distention. Hysterectomy. Atherosclerosis of the aorta without aneurysm. No pathologically enlarged lymph nodes. No acute retroperitoneal hemorrhage. Mild distal esophageal wall thickening with adjacent paraesophageal fluid and subcentimeter lymph nodes. Small hiatal hernia. Colonic diverticulosis. There is wall thickening with partial distention involving majority of the colon and rectum. Moderate colonic fecal retention. No CT evidence of acute appendicitis. No acute fracture. IMPRESSION: 1. Evidence of recent cholecystectomy with postoperative trace fluid within the erick hepatis. No postoperative fluid collection. 2. Cardiomegaly with evidence of anemia. Interstitial pulmonary edema with layering pleural effusions and mild bibasilar atelectasis. 3. Small hiatal hernia with mild distal esophageal wall thickening redemonstrated. 5. No bowel obstruction or pneumoperitoneum. 6. Colonic diverticulosis. 7. Additional findings as above. ACT 112: Negative or not required by law. The above report was generated using voice recognition software. It may contain grammatical, syntax or spelling errors. Electronically signed by: Nathaniel Yung M.D. 12/18/2024 10:59 AM Medications Administered Current Inpatient Medications Acetaminophen (Acetaminophen 325 Mg Tab) 650 mg PO Q4H PRN PRN Reason: Pain or Fever Stop: 01/09/25 12:15 Last Admin: 12/11/24 00:04 Dose: 650 mg Aspirin (Aspirin 81 Mg Ectab) 81 mg PO DAILY [facility] Stop: 01/09/25 08:59 Last Admin: 12/18/24 08:39 Dose: 81 mg Dextrose (Dextrose 50% 50 Ml Syringe) 25 - 50 ml IV UD PRN; Protocol PRN Reason: Hypoglycemia Protocol Stop: 01/09/25 07:30 Furosemide (Furosemide 40 Mg/4 Ml Vial) 40 mg IV ONE ONE Stop: 12/18/24 11:14 Glucagon (Glucagon For Inj 1 Mg Vial) 1 mg SQ UD PRN; Protocol PRN Reason: Hypoglycemia Protocol Stop: 01/09/25 07:30 Glucose (Glucose 40% Gel 15 Gm Tube) 15 - 30 gm PO UD PRN; Protocol PRN Reason: Hypoglycemia Protocol Stop: 01/09/25 07:30 Glucose (Glucose 10 Tab/Tube) 4 - 8 tab PO UD PRN; Protocol PRN Reason: Hypoglycemia Protocol Stop: 01/09/25 07:30 Hydralazine HCl (Hydralazine Hcl 25 Mg Tab) 25 mg PO TID@0800,1400,2000 [facility] Stop: 01/16/25 19:59 Last Admin: 12/17/24 19:25 Dose: 25 mg Hydrocortisone (Hydrocortisone Hc 2.5% Crm 30gm Tube) 1 appln EXT Q6H PRN PRN Reason: Hemorrhoids Stop: 01/12/25 18:55 Promethazine HCl (Phenergan) 6.25 mg in 50.25 mls @ 201 mls/hr IV Q6H PRN PRN Reason: Nausea And Vomiting Stop: 01/14/25 00:28 Last Infusion: 12/16/24 22:56 Dose: Infused Sodium Chloride (Nss) 100 mls @ 15 mls/hr IV .Q6H40M PRN PRN Reason: For Transfusion Duration Stop: 12/18/24 17:40 Sodium Chloride (Nss) 50 mls @ 15 mls/hr IV .Q3H20M PRN PRN Reason: For Transfusion Duration Stop: 12/18/24 17:40 Sodium Chloride (Nss) 100 mls @ 15 mls/hr IV .Q6H40M PRN PRN Reason: For Transfusion Duration Stop: 12/18/24 18:13 Sodium Chloride (Nss) 50 mls @ 15 mls/hr IV .Q3H20M PRN PRN Reason: For Transfusion Duration Stop: 12/18/24 18:13 Pantoprazole Sodium (Protonix) 40 mg in 10 mls @ 5 mls/min IV BID [facility] Stop: 01/17/25 20:59 Insulin Aspart (Insulin Aspart Per Unit Charge) 0 units SC ACHS DANIEL Stop: 01/09/25 07:30 Last Admin: 12/18/24 08:38 Dose: Not Given Lactobacillus Acidophilus (Advanced Probiotic 625 Mg Capsule) 1,250 mg PO DAILY [facility] Stop: 01/12/25 18:59 Last Admin: 12/18/24 08:39 Dose: 1,250 mg Magnesium Oxide (Magnesium Oxide 400 Mg Tab) 400 mg PO BID D[facility]EL Stop: 01/09/25 08:59 Last Admin: 12/18/24 08:39 Dose: 400 mg Metoprolol Succinate (Metoprolol Succ 25mg Ext Rel Tab) 25 mg PO DAILY [facility]EL Stop: 01/09/25 08:59 Last Admin: 12/18/24 08:40 Dose: 25 mg Miscellaneous (Carbohydrates For Hypoglycemia ) 15 - 30 gm PO UD PRN PRN Reason: Hypoglycemia Protocol Stop: 01/09/25 07:30 Nitroglycerin (Nitroglycerin Sl 0.4 Mg/Tab Tab) 0.4 mg SL Q5M PRN PRN Reason: Chest Pain Stop: 01/09/25 07:30 Oxycodone/Acetaminophen (Oxycodone/Acetaminophen 5mg/325mg Tab) 1 tab PO Q4H PRN PRN Reason: MODERATE Pain (4,5,6) & Pre PT Stop: 12/26/24 12:41 Rosuvastatin Calcium (Rosuvastatin Calcium 20 Mg Tab) 40 mg PO DAILY DANIEL Stop: 01/09/25 08:59 Last Admin: 12/18/24 08:41 Dose: 40 mg
[2024-12-18] MEDS: FUROSEMIDE 40 MG/4 ML VIAL IV SCH (15:51)
[2024-12-18] MEDS: PANTOprazole 40 MG/10 ML SYR IV SCH (21:21)
[2024-12-19 07:22] LABS: Hematocrit (blood only) 26.6 % (37.0-47.0); Mean Corpuscular Hgb Conc 33.8 g/dL (32.0-36.0); Mean Corpuscular Volume 82.9 fL (80.0-100.0); Mean Platelet Volume 9.6 fL (9.4-12.4); Platelet Count 286 K/uL (130-400); RDW Coefficient of Variation 12.9 % (11.5-14.5); RDW Standard Deviation 39.3 fL (36.4-46.3); Red Blood Count 3.21 M/uL (4.20-5.40); White Blood Count 11.31 K/ul (4.8-10.8)
[2024-12-19 07:51] LABS: BUN Creatinine Ratio 7.9 (10-20); Calcium 8.9 mg/dl (8.6-10.3); Creatinine Clr Calc Pharmacy 8.3 ml/min; Magnesium 2.2 mg/dl (1.7-2.4); Phosphorus 4.2 mg/dl (2.5-4.9); Potassium 3.7 mmol/L (3.5-5.1)
--- NOTE | 2024-12-19 08:16 | Nephrology Progress Note ---
Date of Service December 19, 2024 Assessment & Plan (1) Acute kidney injury superimposed on stage 3b chronic kidney disease: Plan: plateau'd after lasix 12/18 w/ early improvement stage 3 nonoliguric acute kidney injury baseline creatinine 1.7 (early CKD4/advanced 3B); presenting creatinine 1.7, peak creatinine on 12/17 5.4 2/2 ischemic/toxic ATN - adequate UOP; electrolytes remain acceptable. expect recovery to resume if no more lasix or infections; creat stable at 4.9 today - continue with supportive measures - blood pressure and UOP acceptable. encourage oral intake - continue to hold diuretics/ARB - renally dose antibiotics - daily input and output/BMP at the moment she does not need dialysis and doubt will need to discuss this admission Care coordinated w/ NOA Tierney regarding leukocytosis, anemia, BP control and hydralazine, continued supportive care in person; we are in agreement (2) Uncontrolled hypertension: Plan: more prominent past 3 days -control pain -activity as tolerated -continue heart healthy diet ->>>>HR has improved on lower dose metoprolol; continue metoprolol lower dose 12.5 mg daily from 25mg daily starting 12/19 >>>>12/17 started hydralazine po 25 mg q8hr w/ hold parameters for SBP <130, timed to be given during waking hours >> increased to 50 mg tid today (3) Acute cholecystitis: Plan: As per primary team/ surgery >>new leukocytosis noted yesterday improved some > up to 14K yesterday and down to 11 K today. suspect BM suppression w/ extended abtx; FOBT to be done today. Admission and Anticipated Discharge Date Admission Date: December 10, 2024 Subjective subjective fever this am w/ some sweats afterward; eating a bit better; no sob; no bleeding. working at [employer] Review of Systems 2 Review of Systems: All systems reviewed & are unremarkable except as noted in Subjective Physical Exam 2 Constitutional: well developed, well nourished and cooperative Eyes: EOM intact bilaterally ENMT: Ears: no external ear abnormality Nose: no external nose abnormality Mouth: + dry oral mucous membranes Neck: no nuchal rigidity Respiratory: normal respiratory effort Auscultation: + diminished lung sounds Cardiovascular: RRR, no murmur, no edema Gastrointestinal (Abdomen): Inspection/Auscultation: + abdomen distended and normal bowel sounds Percussion/Palpation: abdomen soft; abdomen nontender Musculoskeletal: Extremities: strength 5/5 throughout Skin: no rashes, warm and dry Results & Data Vital Signs (Past 12 Hours) Vital Signs Temp Pulse Resp BP Pulse Ox O2 Del Method 12/19/24 07:44 37.1 C 77 16 178/67 H 97 Room Air Laboratory Results 12/19/24 06:41 12/19/24 06:41
[2024-12-19] MEDS: METOPROLOL SUCC 25MG EXT REL TAB PO SCH (08:38)
[2024-12-19] MEDS: hydrALAZINE HCL 25 MG TAB PO ONE (08:39)
--- NOTE | 2024-12-19 09:34 | Hospitalist Progress Note ---
Date of Service December 19, 2024 Assessment & Plan (1) Acute gangrenous cholecystitis: (2) Acute kidney injury (NANCY) with acute tubular necrosis (ATN): (3) Acute kidney injury superimposed on stage 3b chronic kidney disease: (4) Uncontrolled hypertension: (5) Type II diabetes mellitus: (6) Anemia: Plan Ms. Montesinos is a 79-year-old female with past med history significant for type 2 diabetes, dyslipidemia, left adrenal adenoma, intraductal papillary mucinous neoplasm, hypertension, diverticulosis colon, Damon, GERD, CKD stage III, osteoporosis, osteoarthritis, history of glaucoma, lives at home with her admitted for acute cholecystitis. #Acute gangrenous cholecystitis s/p Lap kala on 12/12 Completed IV zosyn incision healing well, no post op abd complaints Given anemia, repeat CT a/p performed on 12/18- -- CTa/p: Evidence of recent cholecystectomy with postoperative trace fluid within the erick hepatis. No postoperative fluid collection.2. Cardiomegaly with evidence of anemia. Interstitial pulmonary edema with layering pleural effusions and mild bibasilar atelectasis.3. Small hiatal hernia with mild distal esophageal wall thickening re-demonstrated.5. No bowel obstruction or pneumoperitoneum.6. Colonic diverticulosis.7. Additional findings as above. WBC trending down, tolerating diet, ambulating around unit, no PT/OT requirements at discharge #NANCY on CKDIII #ATN - suspect ischemic/toxic Up-trending postoperatively and peaking at 5.39, down to 4.85 -> 4.92 Baseline cr ~1.5 Nephro on board, adequate UOP, electrolytes stable, no indication for HD at this time - hydralazine 50mg TID, Toprol 12.5 mg daily Strict UOP/intake Avoid nephrotoxic agents Continue to hold ARB, chlorthalidone Daily bmp #Anemia Outpt hgb was ~ 10 in 2023, previously normal in 2022 pt reports hx of iron def in past, has routine cscopes/egd reviewed out cscope in 2019 with polyp removals/internal hem/diverticulosis EGD in 2022 revealed erythematous mucosa of gastric body, 1cm hiatal hernia, irregular z line, recommended daily PPI which is she on, biopsy showed chronic inactive gastritis pt denies aracely bleeding, mild nose bleed the other day but < 5 min Anemia panel revealed low Iron and T sat at 25 and 9%, ferritin adequate, B12 and folate normal Hgb 7.0 on 12/19, s/p 1 unit PRBC and given 40mg IV lasix post transfusion, consent obtained Hgb improved to 9 today, however Hemoccult screen positive Routine GI consult placed, continue monitoring CBC #Elevated troponin, likely demand iso acute illness #Chronic conduction delay LBBB, noted in 2016 #CAD Intermittent interventricular conduction delay on EKG ECHO 60-65% 12/2024 stress test in 2023: Normal myocardial perfusion imaging with apical thinning. RCRI 2 points 2/2 Ischemic disease and intraperitoneal procedure Continue Metoprolol perioperatively Continue statin, hold baby aspirin for now follows Dr Fuchs continue regimen #Abnormal electrolytes 2/2 acute illness and thiazide Trend and replace prn #Hypertension Hold irbesartan 300mg daily, chlorthalidone 25mg daily iso electrolyte abnormalities and relative hypotension Started on hydralazine 50 mg TID, Toprol 12.5mg daily as above. Monitor #DMTII SSI , a1c 6.6 on 12/12 #QTC prolonged Avoid prolonging agents DVT SCDS FULL CODE PCP: Dr. Jordan Dispo: admitted to medical, not yet medically stable for discharge, awaiting nephro clearance and improvement in anemia Pt was seen and examined in collaboration with Dr. Thompson, please see addendum I spent a total of 50 minutes coordinating, documenting and providing care for this patient excluding time spent in the performance of separately billed services or time spent by another provider/QHP. Admission and Anticipated Discharge Date Admission Date: December 10, 2024 Supervising Physician Co-Signing Physician Notes Pt seen and examined by me, care coordinated w/ Zbigniew Tierney PA-C, pls refer to her note for further detail. Pt is currently laying in bed in NAD, reports feeling fairly well, denies any significant abd. pain. Says nausea is improved. Abdomen is soft on palpation, nontender. She is ambulating. Hgb improved after transfusing 1 unit of pRBC yesterday. Given anemia, also obtained fobt, pt is on PPI. CT abd/pelvis. fobt is positive. Will discuss w/ GI. Creatinine continues to be elevated, nephrology following closely. MD Jay Subjective Feels ok today- was able to tolerate some toast with PB today. No abdominal pain. No CP or SOB. No melena or hematochezia. Feels like she will have a bowel movement soon - nursing to collect FOBT. Review of Systems Review of Systems: At least ten systems reviewed and negative except as noted in the HPI. Physical Exam Physical Exam: Gen: WD/WN, resting comfortably, appears chronically ill, NAD, A&O x3 HEENT: Normocephalic, atraumatic, conjunctivae moist, sclerae anicteric, mucous membranes moist Lung: Clear to Auscultation bilaterally Heart: Regular rate, regular rhythm Abdomen: Soft, NT, ND +BS x 4 + lap incisions healing well, no surrounding erythema, RUQ mild ecchymosis Extremities: No edema Skin: Warm, no rash Results & Data Results & Data Vital Signs (Past 12 Hours) Vital Signs Temp Pulse Resp BP Pulse Ox O2 Del Method 12/19/24 07:44 37.1 C 77 16 178/67 H 97 Room Air Laboratory Results Short CBC 12/19/24 Range/Units 06:41 WBC 11.31 H (4.8-10.8) K/ul Hgb 9.0 L (12.0-16.0) g/dl Hct 26.6 L (37.0-47.0) % Plt Count 286 (130-400) K/uL BMP 12/19/24 06:41 Sodium 135 L Potassium 3.7 Chloride 98 Carbon Dioxide 28 BUN 39 H Creatinine 4.92 H* Glucose 97 Calcium 8.9 Diagnostic Findings Chest X-Ray 12/09/24 23:21 EXAM: XR chest 1V portable CLINICAL HISTORY: Chest pain, nonspecific TECHNIQUE: Radiograph of chest was acquired. COMPARISON: none FINDINGS: The lungs are clear and well-expanded with no pulmonary infiltrate or pleural effusion. The cardiomediastinal silhouette is within normal limits. No acute osseous abnormality. IMPRESSION: 1. No acute cardiopulmonary disease. Electronically signed by Van Olsen 12-10-2024 01:07 AM Gallbladder Ultrasound 12/09/24 23:23 EXAM: US gallbladder CLINICAL HISTORY: ruq pain TECHNIQUE: Ultrasound examination of the RUQ was performed using a [high-frequency transducer]. Scanning was performed with the patient in supine position. COMPARISON: None. FINDINGS: Liver: Liver size: Liver appears normal in size with homogeneous echotexture. Measuring 16.8 cm. No evidence of focal lesions, cysts, or masses. Hepatic vasculature appears normal. Gallbladder: Gallbladder size: The gallbladder is visualized and appears normal in size and shape, with a small amount of sludge noted. No gallstones, wall thickening measuring 1.5 mm, or pericholecystic fluid noted. No evidence of gallbladder wall edema or signs of acute cholecystitis. Biliary Tree: Common bile duct diameter: [4.7 mm].The common bile duct is within normal limits in caliber and not dilated. No evidence of choledocholithiasis or biliary obstruction. Right Kidney: Right kidney size: [measurements in length (9.2 cm), height (4.1 cm) and width (4.3 cm)]. The right kidney appears normal in size with preserved corticomedullary differentiation. No evidence of hydronephrosis, renal cysts, or masses. Right Adrenal Gland: A rounded mixed texture lesion of predominant echogenic appearance was noted at the right suprarenal region, measuring 6.1x 6.5x 5..4, separable from the kidney, and likely adrenal myelolipoma. IMPRESSION: - Right suprarenal heterogenous mass of predominant echogenic texture, suggesting fatty component mostly myelolipoma; further assessment with CT/ MRI advised. - Small gallbladder sludge. Electronically signed by Alec Gordillo 12-10-2024 02:15 AM Abdomen/Pelvis CT 12/10/24 00:51 EXAM: CT abd pelvis wo con CLINICAL HISTORY: severe pain TECHNIQUE: Contiguous axial images were obtained from the level of the diaphragm to the pubic symphysis without intravenous or oral contrast. Coronal and sagittal reconstructions were likewise performed and indicated to increase the sensitivity for detecting clinically relevant pathology. CT scan was performed according to ALARA (as low as reasonably achievable). COMPARISON: none FINDINGS: The visualized lung bases are clear. Evaluation of the abdominal and pelvic visceral organs is limited without intravenous contrast. The unenhanced liver, spleen, pancreas are grossly unremarkable. A predominantly fat containing well defined mass seen in right adrenal gland measuring about 5.7x5.3x5.4cm. Small nodule also seen in left adrenal gland measuring 18 X 14 mm in size. The gallbladder is present. A radiodense calculus of size 3mm seen at neck. No pericholecystic inflammation. The kidneys are normal in size and attenuation without obvious calcification. There is no hydronephrosis or perinephric stranding. The ureters are normal in caliber. No adenopathy or fluid collections are seen. Multiple diverticuli of average size 4-5mm seen in cecum, ascending/descending colon and sigmoid colon. No evidence of focal or diffuse bowel wall thickening or evidence of bowel obstruction is seen. The appendix is not visualized. Diffuse atherosclerotic wall calcification of abdominal aorta. Degenerative changes in visualized spine. The urinary bladder is normal in contour. Post cholecystectomy status. No aggressive appearing osseous lesions are identified. Small sliding hiatus hernia. IMPRESSION: 1. Cholelithiasis with no evidence of cholecystitis. 2. Right adrenal myelolipoma. 3. Uncomplicated colonic diverticulosis. 4. Small sliding hiatus hernia. 5. Small nodule also seen in left adrenal gland measuring 18 X 14 mm in size. Advised clinical correlation and further evaluation with CT adrenal protocol. Electronically signed by Van Olsen 12-10-2024 02:[address] 12/10/24 12:14 CT head/brain wo con CLINICAL HISTORY: Paresthesia. TECHNIQUE: Multiple axial CT images of the head were obtained without contrast. A dose lowering technique was utilized adhering to the principles of ALARA. CT DOSE: 625.8 mGy.cm COMPARISON: None FINDINGS: There is mild motion. No intracranial hemorrhage seen. No mass effect, midline shift, or hydrocephalus. No skull fracture. Visualized paranasal sinuses and mastoid air cells are clear. IMPRESSION: No acute findings. ACT 112: Negative or not required by law. The above report was generated using voice recognition software. It may contain grammatical, syntax or spelling errors. Electronically signed by: Jer Mccarty M.D. 12/10/2024 12:47 PM Hepatobiliary Scan Nuclear Medicine 12/11/24 11:15 NM hepatobiliary CLINICAL HISTORY: RUQ pain. TECHNIQUE: Sequential anterior abdominal images were obtained through 90 minutes following the intravenous administration of 5.8 mCi of technetium-99m Choletec. 2 mg morphine sulfate was also given IV. COMPARISON: CT and ultrasound yesterday FINDINGS: There is normal liver uptake. Contrast migrates promptly to the common bile duct and into the small bowel. The gallbladder is not visualized on the first hour. Morphine was given at 60 minutes. The exam was continued to 90 minutes. Gallbladder was not visualized. IMPRESSION: Findings consistent with cystic duct obstruction. ACT 112: Negative or not required by law. The above report was generated using voice recognition software. It may contain grammatical, syntax or spelling errors. Electronically signed by: Jer Mccarty M.D. 12/11/2024 1:14 PM Renal Ultrasound 12/14/24 07:48 RENAL ULTRASOUND HISTORY: Acute kidney injury worsening nancy COMPARISON: CT abdomen and pelvis 12/10/2024 FINDINGS: Right kidney: 10.1 cm. Mild pelvocaliectasis without aracely hydronephrosis. Normal corticomedullary differentiation and cortical thickness. Left kidney: 10.2 cm. No hydronephrosis. Normal corticomedullary differentiation and cortical thickness. Bladder: Partial distention with mild wall thickening. The bilateral ureteral jets were identified. Trace free fluid within the abdominal right upper quadrant. IMPRESSION: 1. Mild pelvocaliectasis of the right kidney. No renal calculi identified. 2. Partial distention of the urinary bladder. ACT 112: Negative or not required by law. Electronically signed by: Nathaniel Yung M.D. 12/14/2024 9:42 AM Chest X-Ray 12/17/24 14:44 Exam: Chest (two views) Reason for exam: Cough Previous studies: 12/09/2024 FINDINGS: As compared to the previous study, the cardiac size remains normal. Newly appearing faint areas of interstitial consolidation are now seen in the left upper lobe and right lower lobe consistent with a interstitial pneumonitis. Additionally small left and minimal right pleural effusions have appeared. IMPRESSION: 1. Newly appearing interstitial infiltrates of the left upper lobe and right lower lobe compatible with pneumonitis of uncertain etiology. Atypical agents including viral etiology should be considered. 2. Development of small bilateral pleural effusions. Electronically signed by Jer Chavez 12-17-2024 5:02 PM Abdomen/Pelvis CT 12/18/24 09:[address] WITHOUT CONTRAST CT DOSE: 1149.5 mGy.cm HISTORY: Acute generalized abdominal pain r/o bleeding TECHNIQUE: Multiaxial CT images of the abdomen and pelvis were performed without contrast. A dose lowering technique was utilized adhering to the principles of ALARA. COMPARISON STUDY: December 10, 2024 FINDINGS: Cardiomegaly. Decreased attenuation of the cardiac blood pool suggestive of anemia. Coronary artery calcifications. Small layering pleural effusions with mild pulmonary edema and subsegmental bibasilar atelectasis. There is no pneumatosis or pneumoperitoneum. The unenhanced spleen, pancreas and liver appear unremarkable. Cholecystectomy with postoperative stranding/free fluid within the erick hepatis. No postoperative fluid collection. 1.8 cm left adrenal adenoma. There is a stable 5.9 x 5.5 x 5.2 cm right adrenal myelolipoma. Mild nonspecific bilateral perinephric stranding. No renal or ureteral calculi or hydronephrosis. Bladder wall thickening with partial distention. Hysterectomy. Atherosclerosis of the aorta without aneurysm. No pathologically enlarged lymph nodes. No acute retroperitoneal hemorrhage. Mild distal esophageal wall thickening with adjacent paraesophageal fluid and subcentimeter lymph nodes. Small hiatal hernia. Colonic diverticulosis. There is wall thickening with partial distention involving majority of the colon and rectum. Moderate colonic fecal retention. No CT evidence of acute appendicitis. No acute fracture. IMPRESSION: 1. Evidence of recent cholecystectomy with postoperative trace fluid within the erick hepatis. No postoperative fluid collection. 2. Cardiomegaly with evidence of anemia. Interstitial pulmonary edema with layering pleural effusions and mild bibasilar atelectasis. 3. Small hiatal hernia with mild distal esophageal wall thickening redemonstrated. 5. No bowel obstruction or pneumoperitoneum. 6. Colonic diverticulosis. 7. Additional findings as above. ACT 112: Negative or not required by law. The above report was generated using voice recognition software. It may contain grammatical, syntax or spelling errors. Electronically signed by: Nathaniel Yung M.D. 12/18/2024 10:59 AM
--- NOTE | 2024-12-19 14:08 | Gastroenterology Progress Note ---
Date of Service December 19, 2024 Assessment & Plan (1) Chronic iron deficiency anemia: Plan: Patient with acute on chronic anemia. No overt, ongoing GI bleeding. Continue PPI. Would recommend treating iron deficiency. Consider outpatient EGD & colonoscopy in 6-8 weeks. Admission and Anticipated Discharge Date Admission Date: December 10, 2024 Supervising Physician Co-Signing Physician Notes Hemoglobin 7 heme positive but without overt bleeding. Iron studies mixed iron percent saturation low TIBC low ferritin normal. Seems reasonable to treat her as iron deficiency. Fairly recent cholecystectomy. Recent bout of diverticulitis. Would prefer delaying endoscopic evaluation at this time. Unless there is aracely melena hematochezia. When she recovers from the cholecystectomy and recent bout of diverticulitis. Outpatient EGD colonoscopy. 4 to 6 weeks. Can readdress or reconsider if signs of ongoing anemia or aracely bleeding. Subjective Patient is a 79 yo female here for a cholecystectomy. GI reconsulted due to concerns of anemia. Patient had lap kala on 12/12. Since that time, she had a decline in her blood count. H/H was 7/21.1 and she was transfused. H/H now 9.0/26.6. Iron levels are low at 25. MCV 82.9. No overt GI bleeding. Reportedly someone decided to obtain a hemoccult and this was positive. She has been on a PPI throughout this admission. BUN 39/Cr 4.92. Review of Systems Gastrointestinal: no problem reported Physical Exam Gastrointestinal (Abdomen): normal bowel sounds, soft, nontender, no hepatosplenomegaly Results & Data Results & Data Vital Signs (Past 12 Hours) Vital Signs Temp Pulse Resp BP BP Pulse Ox O2 Del Method 12/19/24 11:48 36.8 C 57 L 16 140/57 L 96 Room Air 12/19/24 07:44 37.1 C 77 16 178/67 H 97 Room Air PG Care Time/CCT Total # of Minutes Spent Total Time Spent with Patient: Total time spent is greater than 50% in coordination of care (as documented) at patient's floor/unit and/or counseling patient: Coding Level of Care Code 81907 SUB INP/OBS CARE 2/35MIN Diagnoses Chronic iron deficiency anemia D50.9
[2024-12-19] MEDS: hydrALAZINE TAB 50 MG TAB PO SCH (15:55)
[2024-12-19] MEDS: IRON SUCROSE 200 MG in SODIUM CHLORIDE 0.9% 100 ML IV SCH (16:14)
[2024-12-19] MEDS: PANTOprazole 40 MG TAB PO STA (21:25)
[2024-12-20 06:58] VITALS: PULSE 65; RESP 14; TEMP 98.1; O2SAT 95
[2024-12-20 07:46] LABS: Hematocrit (blood only) 27.6 % (37.0-47.0); Hemoglobin 9.2 g/dl (12.0-16.0); Mean Corpuscular Hemoglobin 27.6 pg (25.0-34.0); Mean Corpuscular Hgb Conc 33.3 g/dL (32.0-36.0); Mean Corpuscular Volume 82.9 fL (80.0-100.0); Mean Platelet Volume 9.5 fL (9.4-12.4); Platelet Count 332 K/uL (130-400); RDW Coefficient of Variation 12.9 % (11.5-14.5); RDW Standard Deviation 39.2 fL (36.4-46.3); Red Blood Count 3.33 M/uL (4.20-5.40); White Blood Count 11.93 K/ul (4.8-10.8)
[2024-12-20 08:04] LABS: BUN Creatinine Ratio 9.3 (10-20); Calcium 8.8 mg/dl (8.6-10.3); Creatinine Clr Calc Pharmacy 9.3 ml/min; Magnesium 2.2 mg/dl (1.7-2.4); Phosphorus 4.1 mg/dl (2.5-4.9); Potassium 3.6 mmol/L (3.5-5.1)
[2024-12-20 09:04] VITALS: BP 129/62
--- NOTE | 2024-12-20 09:19 | Nephrology Progress Note ---
Date of Service December 20, 2024 Assessment & Plan (1) Acute kidney injury superimposed on stage 3b chronic kidney disease: Plan: Once again improving after lasix 12/18 w/ early improvement stage 3 nonoliguric acute kidney injury baseline creatinine 1.7 (early CKD4/advanced 3B); presenting creatinine 1.7, peak creatinine on 12/17 5.4 2/2 ischemic/toxic ATN - adequate UOP; electrolytes remain acceptable. expect recovery to resume if no more lasix or infections; creat better at 4.4 today - continue with supportive measures - blood pressure and UOP acceptable. encourage oral intake - continue to hold diuretics/ARB - renally dose antibiotics - daily input and output/BMP at the moment she does not need dialysis and do not foresee need to discuss this admission NEPHRO D/C RECS IMPRESSION: stage 3 nonoliguric NANCY on CKD 3B from ischemic v toxic ATN D/C MEDS: -hold OP chlorthalidone, metformin, losartan at d/c -consider holding ASA until OP EGD/colonoscopy completed, though from neph standpoint could continue -lower OP metoprolol dose ER to 12.5 mg daily from 25 -start hydralazine 50 mg tid as OP; pls give 25 mg tabs not 50s in case dose change needed -avoid all NSAIDS other than ASA 81 mg -continue statin -suggest daily po iron supplements with vitamin c for better absorption; take bid if tolerated; if not tolerated, suggest pre lamine vitamin F/U LABS: -needs bmp and cbc to be ordered by PCP or hospitalist on 12/23 and -neph nurse to order bmp, UACM, ACR, PTH, 25 OHD, phos, retic count, t sat, ferritin to be obtained no more than 72 hrs before appt w/ me OTHER F/U CARE: -OP EGD/Smoaks -call PCP immediately if new/worrisome voiding concerns, n/v/d, inability to tolerate po, bleeding, other worrisome symptoms F/U APPTS: -hospital d/c appt w/ me at [facility] or [facility] in 2 weeks -close in PCP f/u Care coordinated w/ Dr Thompson regarding f/u recs, anemia, BP control and hydralazine; we are in agreement (2) Uncontrolled hypertension: Plan: more prominent past 3 days -control pain -activity as tolerated -continue heart healthy diet ->>>>HR has improved on lower dose metoprolol; continue metoprolol lower dose 12.5 mg daily from 25mg daily starting 12/19 >>>>12/17 started hydralazine po 25 mg q8hr w/ hold parameters for SBP <130, timed to be given during waking hours >> increased to 50 mg tid 12/19 (3) Acute cholecystitis: Plan: As per primary team/ surgery >>new leukocytosis noted earlier this week improved some > up to 14K and now plateaued at 11 K today. suspect BM suppression w/ extended abtx; transferrin sat 9% on December 18 >venofer 300 mg IV unable to be given d/t loss of IV access Admission and Anticipated Discharge Date Admission Date: December 10, 2024 Subjective no acute interval events except lost 7th IV last evening. no n/v, hungry for stromboli. no sob or edema or voiding concerns. ambulating and taking po w/o issue Review of Systems 2 Review of Systems: All systems reviewed & are unremarkable except as noted in Subjective Physical Exam 2 Constitutional: well developed, well nourished and cooperative Eyes: EOM intact bilaterally ENMT: Ears: no external ear abnormality Nose: no external nose abnormality Mouth: + dry oral mucous membranes Neck: no nuchal rigidity Respiratory: normal respiratory effort Auscultation: + diminished lung sounds Cardiovascular: RRR, no murmur, no edema Gastrointestinal (Abdomen): Inspection/Auscultation: + abdomen distended and normal bowel sounds Percussion/Palpation: abdomen soft; abdomen nontender Musculoskeletal: Extremities: strength 5/5 throughout Skin: no rashes, warm and dry Results & Data Vital Signs (Past 12 Hours) Vital Signs Temp Pulse Resp BP Pulse Ox O2 Del Method 12/20/24 09:04 129/62 12/20/24 06:56 36.7 C 65 14 146/60 H 95 Room Air Laboratory Results 12/20/24 07:19 12/20/24 07:19
--- NOTE | 2024-12-20 13:04 | Discharge Summary ---
Discharge Summary Date of Service December 20, 2024 Principal Dx & Hospital Course #1 = Principal Diagnosis (1) Acute gangrenous cholecystitis: (2) Acute kidney injury (NANCY) with acute tubular necrosis (ATN): (3) Acute kidney injury superimposed on stage 3b chronic kidney disease: (4) Uncontrolled hypertension: (5) Type II diabetes mellitus: (6) Anemia: Plan This is a 79-year-old female with past med history significant for type 2 diabetes, dyslipidemia, left adrenal adenoma, intraductal papillary mucinous neoplasm, hypertension, diverticulosis colon, Damon, GERD, CKD stage III, osteoporosis, osteoarthritis, history of glaucoma, lives at home with her admitted for acute cholecystitis. Acute gangrenous cholecystitis s/p Lap kala on 12/12 Completed IV zosyn Incision healing well, no post op abd complaints Given anemia, repeat CT a/p performed on 12/18- -- CTa/p: Evidence of recent cholecystectomy with postoperative trace fluid within the erick hepatis. No postoperative fluid collection.2. Cardiomegaly with evidence of anemia. Interstitial pulmonary edema with layering pleural effusions and mild bibasilar atelectasis.3. Small hiatal hernia with mild distal esophageal wall thickening re-demonstrated.5. No bowel obstruction or pneumoperitoneum.6. Colonic diverticulosis.7. Additional findings as above. WBC trending down, tolerating diet, ambulating around unit, no PT/OT requ irements at discharge NANCY on CKDIII ATN - suspect ischemic/toxic Up-trending postoperatively and peaking at 5.39, downtrending 4.85 -> 4.92 -> 4.43 Baseline cr ~1.5 NEPHRO D/C RECS IMPRESSION: stage 3 nonoliguric NANCY on CKD 3B from ischemic v toxic ATN D/C MEDS: Hold OP chlorthalidone, metformin, losartan at d/c Continue metoprolol succinate at lower dose of 12.5mg daily Continue hydralazine 50 mg TID Avoid all NSAIDS other than ASA 81 mg F/U LABS: Ordered bmp and cbc for next week Neph nurse to order bmp, UACM, ACR, PTH, 25 OHD, phos, retic count, t sat, ferritin to be obtained no more than 72 hrs before nephro appt Follow up appt with Dr. Landeros in 2 weeks Iron deficiency Anemia Outpt hgb was ~ 10 in 2023, previously normal in 2022 Pt reports hx of iron def in past, has routine cscopes/egd reviewed out cscope in 2019 with polyp removals/internal hem/diverticulosis EGD in 2022 revealed erythematous mucosa of gastric body, 1cm hiatal hernia, irregular z line, recommended PPI which is she on, biopsy showed chronic inactive gastritis Anemia panel revealed low Iron and T sat at 25 and 9%, ferritin adequate, B12 and folate normal Hgb 7.0 on 12/19, s/p 1 unit PRBC and given 40mg IV lasix post transfusion, consent obtained S/p Venofer on 12/19 (only received portion of treatment 12/08 infiltrated IV) Hgb improved to 9, however Hemoccult screen positive Routine GI consult placed - recommend waiting for 4-6 weeks for outpatient EGD/colonoscopy unless over bleed given recent diverticulitis and cholecystitis Discharging on protonix, iron supplement, vit C for absorption Repeat CBC next week Elevated troponin, likely demand iso acute illness Chronic conduction delay LBBB, noted in 2016 CAD Intermittent interventricular conduction delay on EKG ECHO 60-65% 12/2024 Stress test in 2023: Normal myocardial perfusion imaging with apical thinning. RCRI 2 points 2/2 Ischemic disease and intraperitoneal procedure Continue Metoprolol perioperatively Continue statin Hold baby aspirin for now in setting of anemia, CBC next week - resume per PCP Abnormal electrolytes 2/2 acute illness and thiazide Trend and replace prn Hypertension Hold irbesartan 300mg daily, chlorthalidone 25mg daily as above Started on hydralazine 50 mg TID, Toprol 12.5mg daily as above. Monitor DMTII SSI , a1c 6.6 on 12/12 QTC prolonged Avoid prolonging agents Notes For Next Care Provider Medication Changes From Visit 55 Admission HPI Per Admitting Provider 79-year-old female with past med history significant for type 2 diabetes, dyslipidemia, left adrenal adenoma, intraductal papillary mucinous neoplasm, hypertension, diverticulosis colon, Damon, GERD, CKD stage III, osteoporosis, osteoarthritis, history of glaucoma, lives at home with her comes because of right upper quadrant abdominal pain and nausea and vomiting. Since yesterday evening she had several episodes of vomiting and also right quadrant abdominal pain. Sometimes pain is in the middle of the chest. Currently no chest pain or shortness of breath. Denies any fevers. No runny nose or sore throat or cough. Constipated. Micturating okay. Hemodynamics are okay.Last night patient also felt some numbness and tingliness in the face and the left arm but that got resolved now. Patient recently was treated with p.o. Augmentin for diverticulitis and completed the course 2 weeks ago. Past medical history. As mentioned above Past surgical history. Colonoscopy. EGD. EGD with biopsy. EGD with endoscopic ultrasound. Removal of anal fistula. Bilateral cataracts. Tonsillectomy adenoidectomy. Total abdominal hysterectomy with removal of tubes. Social history. . No smoking. No alcohol use. No drug use. Family history. Sister has diabetes. Heart disorder. Brother has heart disorder. Daughter has heart disorder. Son has A-fib. Admission Exam Per Admitting Provider General- Not in distress. Head- atraumatic Eyes- PERRL. ENT- oropharynx clear Neck- supple, no JVD. Lungs- clear to auscultation no wheezing or crackles. Heart- regular rhythm; no murmur, no gallop. Abdomen- normal bowel sounds, soft, nontender, no distension Extremities- no pretibial edema, no erythema seen. Neuro- alert, oriented PERRL, no facial palsy; no dysarthria; moves extremities Discharge Exam Gen: WD/WN, resting comfortably, appears chronically ill, NAD, A&O x3 HEENT: Normocephalic, atraumatic, conjunctivae moist, sclerae anicteric, mucous membranes moist Lung: Clear to Auscultation bilaterally Heart: Regular rate, regular rhythm Abdomen: Soft, NT, ND +BS x 4 + lap incisions healing well, no surrounding erythema, RUQ mild ecchymosis Extremities: No edema Skin: Warm, no rash Updated Medication List Medication Instructions Recorded Confirmed Type aspirin 81 mg tablet,delayed 81 mg PO DAILY 12/10/24 12/10/24 History release chlorthalidone 25 mg tablet 25 mg PO DAILY 12/10/24 12/10/24 History losartan 25 mg tablet 25 mg PO DAILY 12/10/24 12/10/24 History metformin 500 mg tablet 500 mg PO DAILY 12/10/24 12/10/24 History rosuvastatin 40 mg tablet 40 mg PO DAILY 12/10/24 12/10/24 History ascorbic acid (vitamin C) 500 mg 500 mg PO DAILY #30 tabs 12/20/24 Rx tablet (Vitamin C) ferrous sulfate 325 mg (65 mg 325 mg PO DAILY #30 tabs 12/20/24 Rx iron) tablet hydralazine 25 mg tablet 50 mg (2 x 25 mg) PO TID #180 tabs 12/20/24 Rx magnesium oxide 400 mg (241.3 mg 400 mg PO BID #60 tabs 12/20/24 Rx magnesium) tablet metoprolol succinate 25 mg 12.5 mg (1/2 x 25 mg) PO DAILY #0 12/20/24 12/10/24 Rx tablet,extended release 24 hr tabs pantoprazole 40 mg tablet,delayed 40 mg PO BID #60 tabs 12/20/24 Rx release Hospital Stay Data Consultations 12/10/24 01:47 ED Decision to Admit Stat 12/10/24 08:00 Consult Gastroenterology Routine Consult General Surgery Routine 12/11/24 15:50 Consult Cardiology Routine 12/14/24 07:48 Consult Nephrology Routine Procedures Performed Operation Date: 12/12/24 12:25 Actual Procedures p Laparoscopic Cholecystectomy(Not Applicable) - Yrn Jonas MD Diagnostic Imagining Performed 12/09/24 23:23 US gallbladder Stat 12/10/24 00:51 CT abd pelvis wo con Stat 12/10/24 12:14 CT head/brain wo con Urgent 12/14/24 07:48 US Renal Bladder [US renal/blad retro comp] Routine 12/18/24 09:34 CT abd pelvis wo con Stat Pending Results Patient Have Any Pending Studies at Discharge: Yes (gallbladder pathology) Discharge Instructions Given to Patient (Per Discharging Provider) Post-Surgical ~Discharge Instructions Activity Recommendations: - lifting limitation: (20 pounds for 2-3 weeks), - exercise/sex/sports limit: (nonstrenuous for 2 weeks), - driving or machine use limit: (none for 1 week or until pain free and no longer taking narcotic pain medication), - Shower/bathe limit: (may shower , no submerging incisions underwater for 10 days) Diet: - Resume previous diet SPECIAL CARE INSTRUCTIONS: - May shower Let water run over area and pat dry. - Leave surgical glue on incisions, this will fall off on its own. - Call the surgeon's office with any questions or concerns - - (ex. temperature higher than 101 degrees F, excessive bleeding or pain). MEDICATIONS: - Resume previous medications unless instructed otherwise by your surgeon. - May take extra strength Tylenol and Ibuprofen as needed for mild to moderate pain -650 mg Tylenol every 6 hours as needed - Percocet 1 every 6 hours, as needed for moderate to severe pain - Recommend daily stool softener daily (Colace) while taking narcotic pain medication to avoid constipation and straining. Drink plenty of water dialy. FOLLOW UP VISIT: - If not already scheduled, please call the office to schedule a two week follow-up appointment. Office number Total Time Total Time Spent Total Time Spent (In Minutes): 55 Supervising Physician Co-Signing Physician Notes Pt seen and examined by me, care coordinated w/ Zbigniew Tierney PA-C, pls refer to her note for further detail. Pt is s/p cholecystectomy, denies any significant abd. pain. abdomen is soft and nontender to palpation. She is ambulating. Hgb improved after transfusing 1 unit of pRBC, also received iv venofer. Given anemia, obtained fobt, pt is on PPI. CT abd/pelvis. fobt is positive. GI consulted - recommend outpt EGD, colonoscopy. Creatinine improved but continues to be elevated, nephrology consulted and following closely, pt will need to cont.to follow up as outpt w/ nephrology as well. MD Jay
[2024-12-20] MEDS: PANTOprazole 40 MG TAB PO SCH (13:27)
== END 2024-12-20 14:16 | disposition home or self-care (01) | DRG 417 ==
LOC: ED 23:08 → SUATTDRO 12-10 06:09 → INTOOBSV 12-10 06:09 → EDINP 12-10 06:09 → 2N 12-10 07:35 → 3W 12-15 13:46